=== PATIENT | female | born 1955 | race Caucasian/White ===

== ENCOUNTER 2017-01-31 06:58 | Emergency (ER) | payer SELFPAY ==
[2017-01-31] MEDS ORDERED: Acetaminophen 325 MG Tab PO ONE (07:32)
[2017-01-31] MEDS ORDERED: Cephalexin 500 MG Cap PO ONE (07:32)
--- NOTE | 2017-01-31 07:40 | EDM.PDOC ---
ED HPI GENERAL MEDICAL PROBLEM - General Chief Complaint: Upper Extremity Injury/Pain Stated Complaint: LT MIDDLE FINGER RED AND SWOLLEN Time Seen by Provider: 01/31/17 07:24 Source of Information: Reports: Patient, RN Notes Reviewed - History of Present Illness INITIAL COMMENTS - FREE TEXT/NARRATIVE: 61-year-old female comes in with sore inflamed distal left middle finger. She states that started hurting last evening, continued through the night and worse this morning. She is not aware of any particular injury. The pain is worse at the base of the nailbed and there is redness and swelling present at that area. There has been no drainage. Left 3-Middle finger Pain Score (Numeric/FACES): 10 - Related Data Allergies Allergy/AdvReac Type Severity Reaction Status Date / Time No Known Allergies Allergy Verified 01/31/17 07:08 Home Meds: Home Meds Cephalexin 500 mg PO Q6HR #40 capsule 01/31/17 [Rx] Ibuprofen 200 mg PO Q6H PRN 01/31/17 [History] Past Medical History HEENT History: Reports: Cataract, Impaired Vision Other HEENT History: wears eyeglasses. Cardiovascular History: Reports: Hypertension Respiratory History: Reports: Pneumonia, Recurrent, Other (See Below) Other Respiratory History: has had pneumonia in infancy. 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 Neurological History: Reports: Migraines Endocrine/Metabolic History: Reports: Diabetes, Type II Hematologic History: Reports: Anemia Other Hematologic History: during . - Infectious Disease History Infectious Disease History: Reports: Chicken Pox, Measles, Mumps Social & Family History - Tobacco Use Smoking Status *Q: Never Smoker Second Hand Smoke Exposure: Yes - Caffeine Use Caffeine Use: Reports: Coffee - Alcohol Use Days Per Week of Alcohol Use: 1 Number of Drinks Per Day: 1 Total Drinks Per Week: 1 - Recreational Drug Use Recreational Drug Use: No Review of Systems - Review of Systems Review Of Systems: See Below Constitutional: Denies: Chills, Fever Mouth/Throat: Reports: No Symptoms Respiratory: Reports: No Symptoms Cardiovascular: Reports: No Symptoms GI/Abdominal: Denies: Nausea, Vomiting Musculoskeletal: Reports: Other (Pain and swelling base of nail bed left middle finger) ED EXAM, GENERAL - Physical Exam Exam: See Below General Appearance: Alert, Mild Distress Respiratory/Chest: No Respiratory Distress Extremities: Redness (There is erythema base of nail bed left distal middle finger, moderate swelling, localized tenderness, no drainage, finger otherwise not inflamed) Neurological: No Motor/Sensory Deficits Skin Exam: Warm, Dry Course - Vital Signs Last Recorded V/S: Last Vital Signs Temp 97.4 F 01/31/17 07:05 Pulse 81 01/31/17 08:10 Resp 18 01/31/17 08:10 BP 169/100 H 01/31/17 08:10 Pulse Ox 99 01/31/17 08:10 - Orders/Labs/Meds Meds: Medications Discontinued Medications Generic Name Dose Route Start Last Admin Trade Name José Miguel PRN Reason Stop Dose Admin Acetaminophen 975 mg 01/31/17 07:32 01/31/17 07:38 Tylenol PO 01/31/17 07:33 975 mg NOW ONE Administration Cephalexin 500 mg 01/31/17 07:32 01/31/17 07:38 Keflex PO 01/31/17 07:33 500 mg ONETIME ONE Administration - Re-Assessments/Exams Free Text/Narrative Re-Assessment/Exam: 01/31/17 07:48 Blood pressure very high on exam to 26/112, repeat blood pressure at this time 190/106. Patient does not take medication for hypertension. She is uncomfortable so that is not helping. 01/31/17 07:56. I visited with her a few minutes ago about doing appropriate labs, starting on medication for hypertension. She is very tired, just wants to go home and get some rest. Will follow up with one of our clinic providers next week. Discharge instructions as documented. Departure - Departure Time of Disposition: 07:34 Disposition: Home, Self-Care 01 Condition: Fair Clinical Impression: Acute paronychia of finger Qualifiers: Laterality: left Qualified Code(s): L03.012 - Cellulitis of left finger Hypertension Qualifiers: Hypertension type: essential hypertension Qualified Code(s): I10 - Essential ( primary) hypertension - Discharge Information Prescriptions: Cephalexin 500 mg PO Q6HR #40 capsule Instructions: Hypertension, [id number], Fingertip Infection, Paronychia, Easy -to-Read Referrals: PCP,None [Primary Care Provider] - Forms: ED Department Discharge Additional Instructions: Soak finger in warm soapy water every 2-3 hours while awake, especially today and tomorrow, cephalexin antibiotic 500 mg 4 times daily for 10 days or until gone, if that does form a visible pus pocket you may Reggie or drain that with a sharp razor blade or follow-up clinic to have that done for you, follow-up clinic if not resolving as expected over the next 3-5 days, return to ED if symptoms worsening in any way. Your blood pressure readings are high this morning. Your finger discomfort and not sleeping well last night is not helping that. You do need to follow-up clinic next week for a full evaluation, appropriate lab work and to get started on medicine for hypertension if appropriate and needed. Call [phone] this morning to get an appointment to see one of our clinic providers next week.
== END 2017-01-31 08:10 | disposition home or self-care (01) ==
LOC: JD.ED 06:58
DX: L03.012 Cellulitis of left finger (principal); I10 Essential (primary) hypertension; E11.9 Type 2 diabetes mellitus without complications; Z77.22 Contact with and (suspected) exposure to environmental tobacco smoke (acute) (chronic)
CPT/HCPCS: 99283; A9270

== ENCOUNTER 2017-02-10 09:34 | Emergency (ER) | payer SELFPAY ==
[2017-02-10] MEDS ORDERED: Sodium Chloride 0.9% 10 ML Syringe FLUSH PRN (09:46)
--- NOTE | 2017-02-10 10:10 | EDM.PDOC ---
ED HPI GENERAL MEDICAL PROBLEM - General Chief Complaint: Neuro Symptoms/Deficits Stated Complaint: WEAKNESS IN R HAND/SLURRED SPEECH Time Seen by Provider: 02/10/17 09:37 Source of Information: Reports: Patient, RN Notes Reviewed - History of Present Illness INITIAL COMMENTS - FREE TEXT/NARRATIVE: 61-year-old lady is been brought in by daughter with concern about speech difficulty, right hand and arm weakness and clumsiness that has resolved. She had sudden onset of these symptoms at work about 30-40 minutes ago. She states symptoms lasted for about 5 minutes or less. She has had frontal headache today. However she did not have prior speech difficulty or hand or arm weakness and was at work able to do her normal work duties without difficulty until sudden onset of these symptoms. She does not remember if there was any numbness or tingling of her hand or face. She's had no chest pain or difficulty breathing. No nausea or vomiting. She has had weak and dizzy spells in the past. She denies known history for hypertension. Her daughter states that she is diabetic but is not on medication for that. This was called as a stroke alert. I did see patient at time of patient arrival to her room. Headache Pain Score (Numeric/FACES): 8 - Related Data Allergies Allergy/AdvReac Type Severity Reaction Status Date / Time No Known Allergies Allergy Verified 02/10/17 09:39 Home Meds: Home Meds Cephalexin 500 mg PO Q6HR #40 capsule 01/31/17 [Rx] Ibuprofen 200 mg PO Q6H PRN 01/31/17 [History] Past Medical History HEENT History: Reports: Cataract, Impaired Vision Other HEENT History: wears eyeglasses. Cardiovascular History: Reports: Hypertension Respiratory History: Reports: Pneumonia, Recurrent, Other (See Below) Other Respiratory History: has had pneumonia in infancy. 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 Neurological History: Reports: Migraines Psychiatric History: Reports: Depression Endocrine/Metabolic History: Reports: Diabetes, Type II Hematologic History: Reports: Anemia Other Hematologic History: during . - Infectious Disease History Infectious Disease History: Reports: Chicken Pox, Measles, Mumps Social & Family History - Tobacco Use Smoking Status *Q: Never Smoker Second Hand Smoke Exposure: No - Caffeine Use Caffeine Use: Reports: Coffee - Alcohol Use Days Per Week of Alcohol Use: 1 Number of Drinks Per Day: 1 Total Drinks Per Week: 1 - Recreational Drug Use Recreational Drug Use: No ED ROS GENERAL - Review of Systems Review Of Systems: See Below Constitutional: Denies: Fever, Chills, Diaphoresis HEENT: Denies: Throat Pain, Vertigo, Vision Change Respiratory: Denies: Shortness of Breath, Wheezing, Pleuritic Chest Pain Cardiovascular: Denies: Chest Pain GI/Abdominal: Denies: Abdominal Pain, Vomiting Musculoskeletal: Denies: Neck Pain, Back Pain Skin: Denies: Rash Neurological: Reports: Headache, Trouble Speaking (At work about 30-40 minutes ago, resolved), Weakness (There was weakness and clumsiness of her hand about 30 -40 minutes ago lasting about 5 minutes, resolved). Denies: Numbness (Frontal) , Tingling ED EXAM, NEURO - Physical Exam Exam: See Below General Appearance: Alert, Anxious Eye Exam: Bilateral Eye: Normal Inspection, PERRL Ears: Normal External Exam Nose: Normal Inspection Throat/Mouth: Normal Inspection Head Exam: Atraumatic. No: Facial Swelling Neck: Supple, Full Range of Motion Respiratory/Chest: No Respiratory Distress, Lungs Clear, Normal Breath Sounds Cardiovascular: Regular Rate, Rhythm GI/Abdominal: Non-Tender Neurological: Alert, No Motor/Sensory Deficits, Oriented x 3, Other (Finger to nose testing normal bilateral) Psychiatric: Normal Affect Skin Exam: Warm, Dry, Normal Color EKG INTERPRETATION EKG Date: 02/10/17 Rhythm: NSR [place]: Normal P-Wave: Present QRS: Other (There are Q waves present inferior leads) ST-T: Normal Course - Vital Signs Last Recorded V/S: Last Vital Signs Temp 96.4 F 02/10/17 09:35 Pulse 92 02/10/17 09:35 Resp 16 02/10/17 09:35 BP 200/107 H 02/10/17 09:35 Pulse Ox 100 02/10/17 09:35 - Orders/Labs/Meds Orders: Active Orders 24 hr Category Date Time Status EKG 12 Lead [EKG Documentation Completion] [RC] STAT Care 02/10/17 09:57 Active POC Glucose [Blood Glucose Check, Bedside] [] ONETIME Care 02/10/17 12:35 Active Peripheral IV Care [RC] . DIRECTED Care 02/10/17 09:47 Active Sodium Chloride 0.9% [Saline Flush] Med 02/10/17 09:46 Active 10 ml FLUSH ASDIRECTED PRN Peripheral IV Insertion Adult [OM.PC] Stat Oth 02/10/17 09:46 Ordered Medication Orders Sodium Chloride (Saline Flush) 10 ml FLUSH ASDIRECTED PRN PRN Reason: Keep Vein Open Last Admin: 02/10/17 10:10 Dose: 10 ml Labs: Laboratory Tests 02/10/17 02/10/17 02/10/17 Range/Units 09:45 09:45 09:45 WBC 6.98 (3.98-10.04) K/mm3 RBC 4.88 (3.98-5.22) M/mm3 Hgb 14.5 (11.2-15.7) gm/L Hct 44.2 (34.1-44.9) % MCV 90.6 (79.4-94.8) fl MCH 29.7 (25.6-32.2) pg MCHC 32.8 (32.2-35.5) g/dl RDW Std Deviation 45.1 (36.4-46.3) fL Plt Count 208 (182-369) K/mm3 MPV 10.2 (9.4-12.3) fl Neut % (Auto) 62.9 (34.0-71.1) % Lymph % (Auto) 25.9 (19.3-51.7) % [place] % (Auto) 8.6 (4.7-12.5) % Eos % (Auto) 1.3 (0.7-5.8) Baso % (Auto) 0.4 (0.1-1.2) % Neut # (Auto) 4.39 (1.56-6.13) K/mm3 Lymph # (Auto) 1.81 (1.18-3.74) K/mm3 [place] # (Auto) 0.60 H (0.24-0.36) K/mm3 Eos # (Auto) 0.09 (0.04-0.36) K/mm3 Baso # (Auto) 0.03 (0.01-0.08) K/mm3 PT 9.8 (8.0-13.0) SECONDS INR 0.90 Sodium 137 (136-145) mEq/L Potassium 4.2 (3.5-5.1) mEq/L Chloride 106 (98-107) mEq/L Carbon Dioxide 19 L (21-32) mEq/L Anion Gap 16.2 H (5-15) BUN 21 H (7-18) mg/dL Creatinine 1.9 H (0.55-1.02) mg/dL Est Cr Clr Drug Dosing 22.87 mL/min Estimated GFR (MDRD) 27 (>60) mL/min BUN/Creatinine Ratio 11.1 L (14-18) Glucose 499 H (80-115) mg/dL Calcium 9.1 (8.5-10.1) mg/dL Total Bilirubin 0.5 (0.2-1.0) mg/dL AST 16 (15-37) U/L ALT 25 (14-59) U/L Alkaline Phosphatase 88 (46-116) U/L Total Protein 7.8 (6.4-8.2) g/dl Albumin 3.5 (3.4-5.0) g/dl Globulin 4.3 gm/dL Albumin/Globulin Ratio 0.8 L (1-2) Meds: Medications Generic Name Dose Route Start Last Admin Trade Name Freq PRN Reason Stop Dose Admin Sodium Chloride 10 ml 02/10/17 09:46 02/10/17 10:10 Saline Flush FLUSH 10 ml ASDIRECTED PRN Administration Keep Vein Open Discontinued Medications Generic Name Dose Route Start Last Admin Trade Name Freq PRN Reason Stop Dose Admin Aspirin 324 mg 02/10/17 13:05 Aspirin PO 02/10/17 13:06 ONETIME ONE Sodium Chloride 500 mls @ 999 mls/hr 02/10/17 10:50 02/10/17 11:10 Normal Saline IV 02/10/17 11:20 999 mls/hr .BOLUS ONE Administration Insulin Human Regular 10 unit 02/10/17 11:10 02/10/17 11:14 Humulin R SUBCUT 02/10/17 11:11 10 units ONETIME ONE Administration Protocol Insulin Human Regular 4 unit 02/10/17 13:15 Humulin R IV 02/10/17 13:16 ONETIME ONE - Re-Assessments/Exams Free Text/Narrative Re-Assessment/Exam: 02/10/17 10:45. CT of head was normal. Her coming back showing a glucose of 499 , moderate dehydration with CO2 of 19 and elevated anion gap. She and her daughter state that she "is diabetic" but not on medication for that, etiology for nontreatment unclear. Have ordered a 500 mL saline bolus and 10 units insulin subcutaneous sq. creatinine is elevated at 1.9 so unable to do CTA or MRA at this time. 11:45. checking on bed status for admission. 02/10/17 12:40. We are on diversion for inpatient admissions. Repeat blood sugar was in the 400 range. Continuing with IV fluid. His shunt was not happy with the idea of going to [place] for hospital admission, her preference would be to go home but she is not medically stable for that. After long persuasion she is willing for the transfer to [facility]. 13:00. Dr. Brian Gleason, Hospitalist accepting Phys. repeat glucose a short time ago greater than 400, will give 4 units IV at this time. Departure - Departure Time of Disposition: 11:53 Disposition: DC/Tfer to Acute Hospital 02 Condition: Serious Clinical Impression: Dehydration, Hyperglycemia, Renal insufficiency TIA (transient ischemic attack) Qualifiers: Transient cerebral ischemia type: unspecified Qualified Code(s): G45.9 - Transient cerebral ischemic attack, unspecified Hypertension Qualifiers: Hypertension type: essential hypertension Qualified Code(s): I10 - Essential ( primary) hypertension - Discharge Information Referrals: PCP,None [Primary Care Provider] - Forms: ED Department Discharge - My Orders Last 24 Hours: My Active Orders 02/10/17 09:46 Sodium Chloride 0.9% [Saline Flush] 10 ml FLUSH ASDIRECTED PRN Peripheral IV Insertion Adult [OM.PC] Stat 02/10/17 09:47 Peripheral IV Care [RC] . DIRECTED 02/10/17 09:57 EKG 12 Lead [EKG Documentation Completion] [RC] STAT 02/10/17 12:35 POC Glucose [Blood Glucose Check, Bedside] [] ONETIME - Assessment/Plan Last 24 Hours: My Active Orders 02/10/17 09:46 Sodium Chloride 0.9% [Saline Flush] 10 ml FLUSH ASDIRECTED PRN Peripheral IV Insertion Adult [OM.PC] Stat 02/10/17 09:47 Peripheral IV Care [RC] . DIRECTED 02/10/17 09:57 EKG 12 Lead [EKG Documentation Completion] [RC] STAT 02/10/17 12:35 POC Glucose [Blood Glucose Check, Bedside] [] ONETIME
--- NOTE | 2017-02-10 10:18 | CT ---
Head CT Technique: Multiple axial sections through the brain were obtained. Intravenous contrast was not utilized. Comparison: No previous intracranial imaging. Findings: Sulci over the convexities are mildly prominent which is asymmetrically more prominent within the frontal lobes. No abnormal parenchymal densities are seen. No evidence of intracranial hemorrhage. No midline shift or mass effect is appreciated. Bone window settings were reviewed which shows the visualized sinuses to appear clear. No acute calvarial abnormality is identified. Impression: 1. Mild atrophy which is asymmetrically more prominent within both frontal lobes. 2. Nothing acute is appreciated on noncontrast head CT study. Diagnostic code #2
[2017-02-10] MEDS ORDERED: Sodium Chloride 0.9% 500 ML IV ONE (10:50)
[2017-02-10] MEDS ORDERED: Insulin Regular, Human 100 Units/ML 3 ML Vial SUBCUT ONE (11:10)
[2017-02-10] MEDS ORDERED: Aspirin 81 MG Tab.Chew PO ONE (13:05)
[2017-02-10] MEDS ORDERED: Insulin Regular, Human 100 Units/ML 3 ML Vial IV ONE (13:15)
[2017-02-10] MEDS ORDERED: Insulin Regular, Human 100 Units/ML 3 ML Vial SUBCUT SCH (16:00)
== END 2017-02-10 14:04 ==
LOC: JD.ED 09:34
DX: G45.9 Transient cerebral ischemic attack, unspecified (principal); E86.0 Dehydration; E11.65 Type 2 diabetes mellitus with hyperglycemia; N28.9 Disorder of kidney and ureter, unspecified; I10 Essential (primary) hypertension
CPT/HCPCS: 36415; 70450; 80053; 85025; 85610; 93005; 96361; 96372; 96374; 99285; A9270; J1817; J7040; J7050; 93010

== ENCOUNTER 2017-04-20 08:56 | Emergency (ER) | payer MEDICAID, MEDICARE, OTHER ==
[2017-04-20] MEDS ORDERED: Insulin Detemir 100 Units/ML 3 ML Pen SUBCUT ONE (10:08)
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
[2017-04-20] MEDS ORDERED: Insulin Aspart 100 Units/ML 3 ML Pen SUBCUT SCH (11:00)
== END 2017-04-20 11:00 | disposition home or self-care (01) ==
LOC: JD.ED 08:56
DX: E11.65 Type 2 diabetes mellitus with hyperglycemia (principal); I10 Essential (primary) hypertension; Z87.01 Personal history of pneumonia (recurrent); Z87.440 Personal history of urinary (tract) infections; Z79.4 Long term (current) use of insulin
CPT/HCPCS: 82962; 96372; 99284; J1815; 99283

== ENCOUNTER 2020-12-11 14:04 | Emergency (ER) | payer MEDICAID, MEDICARE ==
[2020-12-11] MEDS ORDERED: Sodium Chloride 0.9% 10 ML Syringe FLUSH PRN (15:06)
--- NOTE | 2020-12-11 15:44 | EDM.PDOC ---
ED HPI GENERAL MEDICAL PROBLEM - General Chief Complaint: Respiratory Problem Stated Complaint: COUGH CHEST PAIN WEAK COVID+ Time Seen by Provider: 12/11/20 15:04 Source of Information: Reports: Patient, RN Notes Reviewed History Limitations: Reports: No Limitations - History of Present Illness INITIAL COMMENTS - FREE TEXT/NARRATIVE: Patient is a 65-year-old female who presents to the ER for the evaluation of her COVID-19. Patient states she has been sick about 10 days. She has had no appetite, she is still trying to drink fluids however she just does not want to eat much of anything. She is not having any sort of nausea vomiting or diarrhea. States she did have a few episodes of diarrhea early in the disease course but this has gotten better. Not complaining of any worsening cough or shortness of breath, or any sort of fevers or chills. Patient is a diabetic, on insulin. Patient was found to be slightly hypoxic at the time of triage, was placed on 2 L of oxygen, and O2 sats have been 97% on the 2 L of oxygen. Again patient is in no visible respiratory distress, we will go ahead to try to trial her off oxygen to see if this can be achieved. Primary care provider is Faith Purdy. - Related Data Allergies Allergy/AdvReac Type Severity Reaction Status Date / Time No Known Allergies Allergy Verified 12/11/20 15:05 Home Meds: Home Meds Insulin Aspart [NovoLOG] 5 units SQ TIDMEALS 04/20/17 [History] Insulin Detemir [Levemir Flextouch] 12 units SQ DAILY 04/20/17 [History] Past Medical History HEENT History: Reports: Cataract, Impaired Vision Other HEENT History: wears eyeglasses. Cardiovascular History: Reports: Afib, Hypertension Respiratory History: Reports: Pneumonia, Recurrent, Other (See Below) Other Respiratory History: has had pneumonia in infancy. 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 Neurological History: Reports: Migraines Psychiatric History: Reports: Depression Endocrine/Metabolic History: Reports: Diabetes, Type II, Obesity/BMI 30+ Hematologic History: Reports: Anemia Other Hematologic History: during . - Infectious Disease History Infectious Disease History: Reports: Chicken Pox, Measles, Mumps, Novel Coronavirus (12/01/2020) Social & Family History - Tobacco Use Tobacco Use Status *Q: Never Tobacco User - Caffeine Use Caffeine Use: Reports: None, Coffee Caffeine Use Comment: 2 X per day - Recreational Drug Use Recreational Drug Use: No ED ROS GENERAL - Review of Systems Review Of Systems: Comprehensive ROS is negative, except as noted in HPI. ED EXAM, GENERAL - Physical Exam Exam: See Below Exam Limited By: No Limitations General Appearance: Alert, WD/WN, No Apparent Distress Respiratory/Chest: No Respiratory Distress, Lungs Clear, Normal Breath Sounds, No Accessory Muscle Use, Chest Non-Tender Cardiovascular: Normal Peripheral Pulses, Regular Rate, Rhythm, No Edema Extremities: Normal Inspection, Normal Capillary Refill Neurological: Alert, Oriented, Normal Cognition, No Motor/Sensory Deficits Psychiatric: Normal Affect, Normal Mood Skin Exam: Warm, Dry, Intact, Normal Color, No Rash #1 Interpretation EKG Date: 12/11/20 Time: 15:11 Rhythm: NSR Rate (Beats/Min): 86 [place]: Normal P-Wave: Present QRS: Normal ST-T: Normal QT: Normal EKG Interpretation Comments: No obvious ischemia or acute ST changes noted, reviewed by myself and Dr. Montgomery. Course - Vital Signs Last Recorded V/S: Last Vital Signs Temp 97.3 F 12/11/20 15:06 Pulse 92 12/11/20 15:06 Resp 20 12/11/20 15:06 BP 123/73 12/11/20 15:06 Pulse Ox 95 12/11/20 15:06 - Orders/Labs/Meds Orders: Active Orders 24 hr Category Date Time Status Oxygen Therapy, ED [RC] ASDIRECTED Care 12/11/20 15:37 Active Peripheral IV Care [RC] . DIRECTED Care 12/11/20 15:06 Active Sodium Chloride 0.9% [Normal Saline] 1,000 ml Med 12/11/20 16:27 Active IV ONETIME Sodium Chloride 0.9% [Saline Flush] Med 12/11/20 15:06 Active 10 ml FLUSH ASDIRECTED PRN Peripheral IV Insertion Adult [OM.PC] Routine Oth 12/11/20 15:06 Ordered Medication Orders Sodium Chloride (Normal Saline) 1,000 mls @ 500 mls/hr IV ONETIME ONE Stop: 12/11/20 18:26 Last Admin: 12/11/20 16:59 Dose: 500 mls/hr Documented by: LEIGHTON Sodium Chloride (Sodium Chloride 0.9% 10 Ml Syringe) 10 ml FLUSH ASDIRECTED PRN PRN Reason: Keep Vein Open Last Admin: 12/11/20 15:58 Dose: 10 ml Documented by: LEIGHTON Labs: Laboratory Tests 12/11/20 12/11/20 12/11/20 Range/Units 15:45 15:45 15:45 WBC 5.60 (3.98-10.04) K/mm3 RBC 4.54 (3.98-5.22) M/mm3 Hgb 12.9 (11.2-15.7) gm/dl Hct 41.4 (34.1-44.9) % MCV 91.2 (79.4-94.8) fl MCH 28.4 (25.6-32.2) pg MCHC 31.2 L (32.2-35.5) g/dl RDW Std Deviation 47.2 H (36.4-46.3) fL Plt Count 152 L (182-369) K/mm3 MPV 10.9 (9.4-12.3) fl Neut % (Auto) 67.7 (34.0-71.1) % Lymph % (Auto) 17.1 L (19.3-51.7) % Island % (Auto) 14.8 H (4.7-12.5) % Eos % (Auto) 0 L (0.7-5.8) Baso % (Auto) 0.2 (0.1-1.2) % Neut # (Auto) 3.79 (1.56-6.13) K/mm3 Lymph # (Auto) 0.96 L (1.18-3.74) K/mm3 Island # (Auto) 0.83 H (0.24-0.36) K/mm3 Eos # (Auto) 0.00 L (0.04-0.36) K/mm3 Baso # (Auto) 0.01 (0.01-0.08) K/mm3 Manual Slide Review Sodium 138 (136-145) mEq/L Potassium 5.9 H (3.5-5.1) mEq/L Chloride 107 (98-107) mEq/L Carbon Dioxide 22 (21-32) mEq/L Anion Gap 14.9 (5-15) BUN 40 H (7-18) mg/dL Creatinine 2.5 H (0.55-1.02) mg/dL Est Cr Clr Drug Dosing 16.48 mL/min Estimated GFR (MDRD) 19 (>60) mL/min BUN/Creatinine Ratio 16.0 (14-18) Glucose 321 H (70-99) mg/dL Calcium 8.0 L (8.5-10.1) mg/dL Magnesium 2.4 (1.8-2.4) mg/dL Total Bilirubin 0.5 (0.2-1.0) mg/dL AST 39 H (15-37) U/L ALT 33 (14-59) U/L Alkaline Phosphatase 74 (46-116) U/L Troponin I < 0.017 (0.00-0.056) ng/mL C-Reactive Protein 6.3 H* (<1.0) mg/dL Total Protein 6.8 (6.4-8.2) g/dl Albumin 2.7 L (3.4-5.0) g/dl Globulin 4.1 gm/dL Albumin/Globulin Ratio 0.7 L (1-2) Meds: Medications Generic Name Dose Route Start Last Admin Trade Name Freq PRN Reason Stop Dose Admin Sodium Chloride 1,000 mls @ 500 mls/hr 12/11/20 16:27 12/11/20 16:59 Normal Saline IV 12/11/20 18:26 500 mls/hr ONETIME ONE Administration Sodium Chloride 10 ml 12/11/20 15:06 12/11/20 15:58 Sodium Chloride 0.9% 10 Ml Syringe FLUSH 10 ml ASDIRECTED PRN Administration Keep Vein Open - Re-Assessments/Exams Free Text/Narrative Re-Assessment/Exam: 12/11/20 15:44 Patient presents to the ER for the evaluation of her COVID-19 symptoms. The patient was placed on 2 L of oxygen at the time of triage, patient thinks that her O2 sats were in the high 80s but she is not really sure, the patient's O2 saturations were documented to have been 95% at time of triage. We will go ahead and trial her off oxygen to see if this is indeed low and see if the patient actually needs oxygen. If she is not hypoxic, she would be a candidate possibly for monoclonal antibodies however it is at day 10, so it might not provide her too much benefit. But we will make sure that she is indeed not hypoxic before going down that route. 12/11/20 16:28 Patient CBC is unremarkable. Metabolic panel has some abnormalities. Potassium is mildly elevated at 5.9, creatinine is elevated at 2.5, GFR low at 19. Blood glucose is elevated at 321, troponin is undetectably low at this time. 12/11/20 16:45 Patient's laboratory evaluation was discussed at bedside with the patient. Patient is refusing any sort of hospitalization at this time. She will however take some IV fluids to hopefully rehydrate her a little bit. I will likely set her up with outpatient oxygen as the patient's O2 sats have been steadily around 87% on room air, and they did improve to 94-95% with 2 L. 12/11/20 16:59 I did review patient's old labs, and her creatinine has been steadily around 1.8 or 1.9, so the slight elevation at 2.5 could very well be due to her dehydration due to not eating or drinking much because of COVID-19. Patient states she feels pretty good otherwise. She again is refusing any sort of hospitalization at this time. Departure - Departure Time of Disposition: 17:16 Disposition: Home, Self-Care 01 Condition: Fair Clinical Impression: Pneumonia due to 2019 novel coronavirus, Hypoxia, Dehydration - Discharge Information *PRESCRIPTION DRUG MONITORING PROGRAM REVIEWED*: No *COPY OF PRESCRIPTION DRUG MONITORING REPORT IN PATIENT JOSEPH: No Instructions: Prone Position Therapy, 10 Things You Can Do to Manage Your COVID-19 Symptoms at Home - [facility] (09/15/2020) Referrals: Jasmine Purdy CRAFT SUPERINTENDENT [Primary Care Provider] - Forms: ED Department Discharge Additional Instructions: You were seen in the ER today for ongoing and/or worsening respiratory symptoms. Your chest x-ray showed signs of a viral pneumonia consistent with COVID-19 at this time. Your oxygen levels were low while being in the ER, and were found to be 87% on room air. You have been placed on oxygen at 2 L via nasal cannula and this has improved your oxygen to about 95 to 96%. You have been given an order for outpatient oxygen on your behalf while you are sick with COVID-19. [facility] will supply this for you. They should teach you how to deal with the machine, if you are needing to increase your oxygen level up to 4 L or over 4 L, then you will need to come back to the ER for ongoing management of your COVID-19 disease. You were also given some IV fluids in the ER, as you are slightly dehydrated because you have not really been eating or drinking well because of your COVID- 19. Please try to increase your oral fluid intake, and eat multiple small meals throughout the day, to keep yourself healthy. You need to keep yourself nourished in order to fight off this disease. You can try a liquid diet like gatorade/powerade as well to get your electrolytes. You may take 500 mg Tylenol every hours 6 hours for pain/fever relief. Do not exceed 4000 mg Tylenol in a 24-hour time span. However, running a fever is your body's natural response to illness, and it allows the body to develop antibodies to disease, we are recommending trying to limit the use of Tylenol as much as possible to allow your body's natural immune response. Recommend you obtain a pulse oximeter and monitor your oxygen levels at home, you should place the monitor on your finger, and sit in a calm, quiet position for a few minutes and then record the number that is on the screen. If this consistently below 90% on room air without movement, this would be cause for concern to come back to the hospital for further management of your COVID-19 disease. Please follow all guidance set forth from [facility], regarding isolation purposes for your disease process. General isolation times are 10 days from when you started being symptomatic. Sepsis Event Note (ED) - Focused Exam Vital Signs: Vital Signs Temp Pulse Resp BP Pulse Ox 12/11/20 15:06 97.3 F 92 20 123/73 95 - My Orders Last 24 Hours: My Active Orders 12/11/20 15:06 Peripheral IV Care [RC] . DIRECTED Sodium Chloride 0.9% [Saline Flush] 10 ml FLUSH ASDIRECTED PRN Peripheral IV Insertion Adult [OM.PC] Routine 12/11/20 15:37 Oxygen Therapy, ED [RC] ASDIRECTED 12/11/20 16:27 Sodium Chloride 0.9% [Normal Saline] 1,000 ml IV ONETIME - Assessment/Plan Last 24 Hours: My Active Orders 12/11/20 15:06 Peripheral IV Care [RC] . DIRECTED Sodium Chloride 0.9% [Saline Flush] 10 ml FLUSH ASDIRECTED PRN Peripheral IV Insertion Adult [OM.PC] Routine 12/11/20 15:37 Oxygen Therapy, ED [RC] ASDIRECTED 12/11/20 16:27 Sodium Chloride 0.9% [Normal Saline] 1,000 ml IV ONETIME
--- NOTE | 2020-12-11 15:51 | CR ---
Chest: Frontal view of the chest was obtained. Comparison: Prior chest x-ray of 09/08/13. Patchy increased density is seen along the periphery of the left lower and mid lung as well as within the right upper and right lower lung. Heart size and mediastinum are normal. Old healed right-sided rib fractures are noted. Impression: 1. Moderately severe bilateral COVID pneumonia appears to be present. 2. No other acute abnormality is appreciated. Diagnostic code #3
[2020-12-11] MEDS ORDERED: Sodium Chloride 0.9% 1,000 ML IV ONE (16:27)
== END 2020-12-11 19:01 | disposition home or self-care (01) ==
LOC: JD.ED 14:04
DX: U07.1 COVID-19 (principal); J12.82 Pneumonia due to coronavirus disease 2019; E86.0 Dehydration; R09.02 Hypoxemia; I48.91 Unspecified atrial fibrillation; I10 Essential (primary) hypertension; E11.9 Type 2 diabetes mellitus without complications; E66.9 Obesity, unspecified; Z68.39 Body mass index [BMI] 39.0-39.9, adult; Z79.4 Long term (current) use of insulin
CPT/HCPCS: 36415; 71045; 80053; 83735; 84484; 85025; 86140; 93005; 99284; J7030

== ENCOUNTER 2020-12-21 21:20 | Inpatient (IN) | payer MEDICARE, MEDICAID ==
--- NOTE | 2020-12-21 22:05 | EDM.PDOC ---
ED HPI GENERAL MEDICAL PROBLEM - General Chief Complaint: Respiratory Problem Stated Complaint: [facility] Time Seen by Provider: 12/21/20 21:38 Source of Information: Reports: Patient, Old Records (ED visit 12/11/2020) History Limitations: Reports: No Limitations - History of Present Illness INITIAL COMMENTS - FREE TEXT/NARRATIVE: Ms. Reed is a very pleasant 65-year-old woman who is now brought to the ED due to hypoxemia. Medical records indicate that the patient was seen in this ED on 12/11/2020, stating that she had tested positive for the SARS-CoV-2 virus on 12/01/2020. She was seen in the ED due to a decreased appetite. She was found to be hypoxemic, with an SPO2 of 87% on room air, 97% on 2 L of supplemental oxygen per nasal cannula. A CRP was found to be elevated at 6.3. Her chest x-ray demonstrated moderately severe COVID pneumonia, with bilateral infiltrates. No medications were given, and she declined admission to the hospital. She was discharged home with supplemental oxygen. Since discharge, the patient states that her oxygen saturation has been declining, according to home finger pulse oximeter that she has. She states that she has continued to be on 2 L of oxygen per nasal cannula up until 2 days ago, when her daughter increased it to 3 L. The patient states that 2 days ago and yesterday she had some trouble breathing, although she does not feel dyspneic at this time. She states that she has had a slight nonproductive cough. She states that she has had 2 days of some diarrhea. She expressly denies any other symptoms, such as a fever, chills, nausea, vomiting, constipation, urinary symptoms, painful breathing, or generalized body aches. She states that she has not taken any mddy-bit-kumytms or home remedies. The patient states that she has diabetes, and checks her blood glucose 4 times a day, with the usual range being between 140 and over 200. She states that a couple of days ago, her blood glucose was 246. The triage note indicates that EMS found the patient's SpO2 to be 77% on 3 L of oxygen per nasal cannula. EMS placed a nonrebreather at 15 L, raising her SpO2 to 92 to 95%. Here in the ED, the patient's initial BP is found to be mildly depressed at 108/58, with slight tachypnea of 24 rpm. She is afebrile, saturating 92% on a nonrebreather. She appears to be comfortable, in no acute distress. She denies having any pain or dyspnea. The patient denies having a recent sore throat, ear pain, nasal or sinus congestion, chest pain, palpitations, abdominal pain, urinary symptoms, recent weight gain or weight loss, recent bloody bowel movements or black bowel movements, recent joint aches, headaches, or rashes. The patient's PCP is Jasmine Purdy NP. She did not receive a COVID vaccination. - Related Data Allergies Allergy/AdvReac Type Severity Reaction Status Date / Time No Known Allergies Allergy Verified 12/21/20 21:27 Home Meds: Home Meds Dulaglutide [Trulicity] 1 dose SUBCUT ASDIRECTED 12/22/20 [History] Insulin Aspart [Novolog Flexpen] 1 dose SUBCUT ASDIRECTED 12/22/20 [History] Levothyroxine 112 mcg PO ACBREAKFAST 12/22/20 [History] Pantoprazole [ProTONIX] 1 tab PO DAILY 12/22/20 [History] atorvaSTATin [Lipitor] 80 mg PO BEDTIME 12/22/20 [History] lisinopriL [Lisinopril] 1 tab PO DAILY 12/22/20 [History] Past Medical History HEENT History: Reports: Impaired Vision (wears glasses) Cardiovascular History: Reports: Afib (paroxysmal), Hypertension Genitourinary History: Reports: Chronic Renal Insuffiency Musculoskeletal History: Reports: Fracture (ribs) Psychiatric History: Reports: Depression (untreated) Endocrine/Metabolic History: Reports: Diabetes, Type II, Obesity/BMI 30+ - Infectious Disease History Infectious Disease History: Reports: Chicken Pox, Measles, Mumps, Novel Coronavirus (dx'd 12/01/2020) - Past Surgical History HEENT Surgical History: Reports: Cataract Surgery (bilateral) Social & Family History - Tobacco Use Tobacco Use Status *Q: Never Tobacco User - Caffeine Use Caffeine Use: Reports: None, Coffee Caffeine Use Comment: 2 X per day - Alcohol Use Alcohol Use History: Yes Alcohol Use Frequency: Rarely - Recreational Drug Use Recreational Drug Use: No - Living Situation & Occupation Living situation: Reports: Single, Alone Occupation: Retired ED ROS GENERAL - Review of Systems Review Of Systems: Comprehensive ROS is negative, except as noted in HPI. ED EXAM, GENERAL - Physical Exam Exam: See Below Exam Limited By: No Limitations General Appearance: Alert, WD/WN, No Apparent Distress Eye Exam: Bilateral Eye: EOMI, Normal Inspection Ears: Normal External Exam, Hearing Grossly Normal Nose: Normal Inspection Throat/Mouth: Normal Inspection, Normal Lips, Normal Voice, No Airway Compromise Head: Atraumatic, Normocephalic Neck: Normal Inspection, Full Range of Motion Respiratory/Chest: No Respiratory Distress, Lungs Clear, Normal Breath Sounds, No Accessory Muscle Use. No: Decreased Breath Sounds, Crackles, Rhonchi, Wheezing, Stridor, Prolonged Expiration Cardiovascular: Normal Peripheral Pulses, Regular Rate, Rhythm, No Edema, No Gallop, No JVD, No Murmur, No Rub Peripheral Pulses: 3+: Radial (L), Radial (R) GI/Abdominal: Normal Bowel Sounds, Soft, Non-Tender, No Organomegaly, No Distention, No Abnormal Bruit, No Mass Back Exam: Normal Inspection, Full Range of Motion, NT Extremities: Normal Inspection, Normal Range of Motion, No Pedal Edema, Normal Capillary Refill Neurological: Alert, Oriented, Normal Cognition, No Motor/Sensory Deficits Psychiatric: Normal Affect Skin Exam: Warm, Dry, Intact, Normal Color, No Rash #1 Interpretation EKG Date: 12/21/20 Time: 22:14 Rhythm: NSR Rate (Beats/Min): 80 [place]: Normal P-Wave: Present QRS: Other (Late transition) ST-T: Normal QT: Normal Comparison: No Change (12/11/2020) Course - Vital Signs Last Recorded V/S: Last Vital Signs Temp 36.3 C 12/22/20 04:00 Pulse 76 12/22/20 01:30 Resp 14 12/22/20 04:00 BP 104/59 L 12/22/20 04:00 Pulse Ox 94 L 12/22/20 04:06 - Orders/Labs/Meds Orders: Active Orders 24 hr Category Date Time Status Ang Chest [CT] Stat Exams 12/21/20 23:26 Taken Chest 1V Frontal [CR] Stat Exams 12/21/20 21:58 Taken BLOOD CULTURE [MREF] Stat Lab 12/21/20 10:22 Received BLOOD CULTURE [MREF] Stat Lab 12/21/20 10:30 Received Sodium Chloride 0.9% [Normal Saline] 1,000 ml Med 12/21/20 22:15 Active IV ASDIRECTED Blood Culture x2 Reflex Set [OM.PC] Stat Oth 12/21/20 22:00 Ordered Medication Orders Sodium Chloride (Normal Saline) 1,000 mls @ 150 mls/hr IV ASDIRECTED TEJAS Last Admin: 12/22/20 06:05 Dose: 150 mls/hr Documented by: Infusion: 12/22/20 06:05 Dose: 150 mls/hr Documented by: Admin: 12/21/20 22:25 Dose: 150 mls/hr Documented by: MANNIE Labs: Laboratory Tests 12/21/20 12/21/20 12/21/20 Range/Units 10: 22:22 22:22 WBC 14.34 H (3.98-10.04) K/mm3 RBC 4.22 (3.98-5.22) M/mm3 Hgb 12.0 (11.2-15.7) gm/dl Hct 37.8 (34.1-44.9) % MCV 89.6 (79.4-94.8) fl MCH 28.4 (25.6-32.2) pg MCHC 31.7 L (32.2-35.5) g/dl RDW Std Deviation 45.4 (36.4-46.3) fL Plt Count 167 L (182-369) K/mm3 MPV 10.2 (9.4-12.3) fl Neutrophils % (Manual) 64 H (40-60) % Band Neutrophils % 21 H (0-10) % Lymphocytes % (Manual) 8 L (20-40) % Atypical Lymphs % 0 % Monocytes % (Manual) 7 (2-10) % Eosinophils % (Manual) 0 L (0.7-5.8) % Basophils % (Manual) 0 L (0.1-1.2) Platelet Estimate Adequate Polychromasia 1+ slight Anisocytosis 2+ moderate Macrocytosis 1+ slight RBC Morph Comment Not Reportable D-Dimer, Quantitative > 35.20 H (0.19-0.50) mg/L Sodium 140 (136-145) mEq/L Potassium 3.7 D (3.5-5.1) mEq/L Chloride 107 (98-107) mEq/L Carbon Dioxide 20 L (21-32) mEq/L Anion Gap 16.7 H (5-15) BUN 35 H (7-18) mg/dL Creatinine 2.2 H (0.55-1.02) mg/dL Est Cr Clr Drug Dosing 18.72 mL/min Estimated GFR (MDRD) 22 (>60) mL/min BUN/Creatinine Ratio 15.9 (14-18) Glucose 228 H (70-99) mg/dL Lactic Acid (0.4-2.0) mmol/L Calcium 8.3 L (8.5-10.1) mg/dL Magnesium 2.1 (1.8-2.4) mg/dL Total Bilirubin 1.3 H (0.2-1.0) mg/dL AST 37 (15-37) U/L ALT 28 (14-59) U/L Alkaline Phosphatase 69 (46-116) U/L Troponin I < 0.017 (0.00-0.056) ng/mL C-Reactive Protein 13.1 H* (<1.0) mg/dL NT-Pro-B Natriuret Pep (0-125) pg/mL Total Protein 6.9 (6.4-8.2) g/dl Albumin 2.2 L (3.4-5.0) g/dl Globulin 4.7 gm/dL Albumin/Globulin Ratio 0.5 L (1-2) Ketones (0.0-0.3) mM Influenza Type A RNA (NEGATIVE) Influenza Type B RNA (NEGATIVE) SARS-CoV-2 RNA (RAD) (NEGATIVE) 12/21/20 12/21/20 12/21/20 Range/Units 22:22 22:22 22:22 WBC (3.98-10.04) K/mm3 RBC (3.98-5.22) M/mm3 Hgb (11.2-15.7) gm/dl Hct (34.1-44.9) % MCV (79.4-94.8) fl MCH (25.6-32.2) pg MCHC (32.2-35.5) g/dl RDW Std Deviation (36.4-46.3) fL Plt Count (182-369) K/mm3 MPV (9.4-12.3) fl Neutrophils % (Manual) (40-60) % Band Neutrophils % (0-10) % Lymphocytes % (Manual) (20-40) % Atypical Lymphs % % Monocytes % (Manual) (2-10) % Eosinophils % (Manual) (0.7-5.8) % Basophils % (Manual) (0.1-1.2) Platelet Estimate Polychromasia Anisocytosis Macrocytosis RBC Morph Comment D-Dimer, Quantitative (0.19-0.50) mg/L Sodium (136-145) mEq/L Potassium (3.5-5.1) mEq/L Chloride (98-107) mEq/L Carbon Dioxide (21-32) mEq/L Anion Gap (5-15) BUN (7-18) mg/dL Creatinine (0.55-1.02) mg/dL Est Cr Clr Drug Dosing mL/min Estimated GFR (MDRD) (>60) mL/min BUN/Creatinine Ratio (14-18) Glucose (70-99) mg/dL Lactic Acid 1.8 (0.4-2.0) mmol/L Calcium (8.5-10.1) mg/dL Magnesium (1.8-2.4) mg/dL Total Bilirubin (0.2-1.0) mg/dL AST (15-37) U/L ALT (14-59) U/L Alkaline Phosphatase (46-116) U/L Troponin I (0.00-0.056) ng/mL C-Reactive Protein (<1.0) mg/dL NT-Pro-B Natriuret Pep 1742 H (0-125) pg/mL Total Protein (6.4-8.2) g/dl Albumin (3.4-5.0) g/dl Globulin gm/dL Albumin/Globulin Ratio (1-2) Ketones 0.3 (0.0-0.3) mM Influenza Type A RNA (NEGATIVE) Influenza Type B RNA (NEGATIVE) SARS-CoV-2 RNA (RAD) (NEGATIVE) 12/22/20 Range/Units 00:20 WBC (3.98-10.04) K/mm3 RBC (3.98-5.22) M/mm3 Hgb (11.2-15.7) gm/dl Hct (34.1-44.9) % MCV (79.4-94.8) fl MCH (25.6-32.2) pg MCHC (32.2-35.5) g/dl RDW Std Deviation (36.4-46.3) fL Plt Count (182-369) K/mm3 MPV (9.4-12.3) fl Neutrophils % (Manual) (40-60) % Band Neutrophils % (0-10) % Lymphocytes % (Manual) (20-40) % Atypical Lymphs % % Monocytes % (Manual) (2-10) % Eosinophils % (Manual) (0.7-5.8) % Basophils % (Manual) (0.1-1.2) Platelet Estimate Polychromasia Anisocytosis Macrocytosis RBC Morph Comment D-Dimer, Quantitative (0.19-0.50) mg/L Sodium (136-145) mEq/L Potassium (3.5-5.1) mEq/L Chloride (98-107) mEq/L Carbon Dioxide (21-32) mEq/L Anion Gap (5-15) BUN (7-18) mg/dL Creatinine (0.55-1.02) mg/dL Est Cr Clr Drug Dosing mL/min Estimated GFR (MDRD) (>60) mL/min BUN/Creatinine Ratio (14-18) Glucose (70-99) mg/dL Lactic Acid (0.4-2.0) mmol/L Calcium (8.5-10.1) mg/dL Magnesium (1.8-2.4) mg/dL Total Bilirubin (0.2-1.0) mg/dL AST (15-37) U/L ALT (14-59) U/L Alkaline Phosphatase (46-116) U/L Troponin I (0.00-0.056) ng/mL C-Reactive Protein (<1.0) mg/dL NT-Pro-B Natriuret Pep (0-125) pg/mL Total Protein (6.4-8.2) g/dl Albumin (3.4-5.0) g/dl Globulin gm/dL Albumin/Globulin Ratio (1-2) Ketones (0.0-0.3) mM Influenza Type A RNA Negative (NEGATIVE) Influenza Type B RNA Negative (NEGATIVE) SARS-CoV-2 RNA (RAD) Positive H (NEGATIVE) Meds: Medications Generic Name Dose Route Start Last Admin Trade Name Freq PRN Reason Stop Dose Admin Sodium Chloride 1,000 mls @ 150 mls/hr 12/21/20 22:15 12/22/20 06:05 Normal Saline IV 150 mls/hr ASDIRECTED TEJAS Administration Discontinued Medications Generic Name Dose Route Start Last Admin Trade Name José Miguel PRN Reason Stop Dose Admin Dexamethasone 6 mg 12/22/20 00:33 12/22/20 00:58 Dexamethasone 4 Mg Tab PO 12/22/20 00:34 6 mg ONETIME STA Administration Enoxaparin Sodium 95 mg 12/22/20 00:32 12/22/20 00:58 Enoxaparin 100 Mg/1 Ml Syringe SUBCUT 12/22/20 00:33 95 mg ONETIME STA Administration Ceftriaxone Sodium 2 gm/ 100 mls @ 200 mls/hr 12/21/20 23:24 12/21/20 23:56 Sodium Chloride IV 12/21/20 23:53 200 mls/hr ONETIME STA Administration - Re-Assessments/Exams Free Text/Narrative Re-Assessment/Exam: 12/21/20 22:02 I have ordered numerous blood tests, 2 sets of blood cultures, a portable chest x-ray, and an ECG. By now, the patient would be expected to have cleared the virus and test negative, however, if she still tests positive, a case could be made for treatment with remdesivir. I have therefore ordered a swab for the SARS-CoV-2 virus/influenza A + B viruses. In the meantime, the patient will be treated with some IV fluid. 12/21/20 22:56 Portable chest radiograph reviewed. The cardiac silhouette is within normal limits. No pulmonary vascular congestion. No pleural effusions seen on this AP view. There are extensive bilateral hazy infiltrates consistent with COVID-19 pneumonia. No pneumothorax. Formal read per the Radiologist pending. 12/21/20 23:25 The patient's CBC is remarkable for leukocytosis of 14.34, with 21% bandemia, and thrombocytopenia of 167,000, with the remainder of her CBC being unremarkable. Her CMP is remarkable for a bicarbonate decreased at 20, with an anion gap elevated at 16.7, a BUN/Cr elevated at 35/2.2, and hyperglycemia of 228, and the remainder of her CMP being unremarkable. Her magnesium level is within normal limits at 2.1. Her lactic acid level is within normal limits at 1.8. Her serum ketones are slightly elevated at 0.3. Her CRP is substantially elevated at 13.1. Her troponin is undetectably low. Her pro-BNP is modestly elevated at 1742. Her D-dimer is substantially elevated at >35.2. Reviewing prior labs, the patient's BUN/Cr was 40/2.5 on 12/11/2020. Based on the above, I have ordered 2 g of IV Rocephin and a CT angiogram of the chest to evaluate for PE. We we'll continue the current IV fluid at 150 mL/h. 12/22/20 00:23 CT angiogram of the chest is read by [facility] as: Extensive peripheral infiltrates. Consider atypical viral pneumonia as etiology Small peripheral pulmonary emboli as detailed above 12/22/20 00:[address] Maher at 00:27. He recommended that we treat the pulmonary emboli with Lovenox, and feels that the patient would still likely benefit from dexamethasone. I have ordered both. He accepted the patient for admission to the medical floor. He will look for the results of the SARS-CoV-2 virus/influenza viruses test tomorrow. 12/22/20 06:58 The patient's swab for the SARS-CoV-2 virus is positive. Her swab for the influenza A + B viruses is negative. Departure - Departure Time of Disposition: 00:35 Disposition: Admitted As Inpatient 64 Condition: Good Clinical Impression: COVID-19, Chronic renal insufficiency, Hyperglycemia due to type 2 diabetes mellitus - Discharge Information *PRESCRIPTION DRUG MONITORING PROGRAM REVIEWED*: Not Applicable *COPY OF PRESCRIPTION DRUG MONITORING REPORT IN PATIENT JOSEPH: Not Applicable Sepsis Event Note (ED) - Evaluation Sepsis Screening Result: No Definite Risk - Focused Exam Vital Signs: Vital Signs Temp Pulse Resp BP Pulse Ox 12/22/20 01:00 80 25 H 104/51 L 97 12/22/20 00:00 78 24 H 111/50 L 100 12/21/20 23:00 80 27 H 105/66 96 12/21/20 22:00 82 21 H 99/55 L 96 12/21/20 21:30 84 27 H 100/60 95 12/21/20 21:21 36.9 C 86 24 H 108/58 L 92 L - My Orders Last 24 Hours: My Active Orders 12/21/20 10:22 BLOOD CULTURE [MREF] Stat 12/21/20 10:30 BLOOD CULTURE [MREF] Stat 12/21/20 21:58 Chest 1V Frontal [CR] Stat 12/21/20 22:00 Blood Culture x2 Reflex Set [OM.PC] Stat 12/21/20 22:15 Sodium Chloride 0.9% [Normal Saline] 1,000 ml IV ASDIRECTED 12/21/20 23:26 Ang Chest [CT] Stat - Assessment/Plan Last 24 Hours: My Active Orders 12/21/20 10:22 BLOOD CULTURE [MREF] Stat 12/21/20 10:30 BLOOD CULTURE [MREF] Stat 12/21/20 21:58 Chest 1V Frontal [CR] Stat 12/21/20 22:00 Blood Culture x2 Reflex Set [OM.PC] Stat 12/21/20 22:15 Sodium Chloride 0.9% [Normal Saline] 1,000 ml IV ASDIRECTED 12/21/20 23:26 Ang Chest [CT] Stat
[2020-12-21] MEDS: Sodium Chloride 0.9% 1,000 ML IV SCH (22:25)
[2020-12-21] MEDS ORDERED: cefTRIAXone 2 GM in Sodium Chloride 0.9% 100 ML IV STA (23:24)
[2020-12-22] MEDS ORDERED: Enoxaparin 100 MG/1 ML Syringe SUBCUT STA (00:32)
[2020-12-22] MEDS ORDERED: Dexamethasone 4 MG Tab PO STA (00:33)
[2020-12-22 01:18] LABS: CORONAVIRUS COVID-19 NAA POSITIVE (NEGATIVE)
[2020-12-22] MEDS: Sodium Chloride 0.9% 1,000 ML IV SCH (06:05)
--- NOTE | 2020-12-22 07:07 | CT ---
CT chest Technique: Multiple axial sections through the chest were obtained. Intravenous contrast was utilized. Study has been performed as a pulmonary angiogram protocol. Findings: Small filling defects are seen within the segmental and subsegmental branches within the left lower lung and lingula compatible with mild pulmonary emboli. Thoracic aorta shows no aneurysm. Small mediastinal lymph nodes are seen which are believed to be within normal limits. No pericardial thickening is seen. Upper visualized abdominal structures show a duodenal diverticulum measuring 5.8 cm. Small amount of accessory splenic tissue is noted. Lung window settings were reviewed which show scattered areas of parenchymal density on both sides of the chest compatible with diffuse COVID pneumonia. Bone window settings were reviewed which show mild scattered degenerative change within the spine. No acute osseous finding is seen. Incidental note of several old healed right posterior rib fractures are noted. Impression: 1. Mild pulmonary emboli. 2. Diffuse increased density throughout both sides of the chest compatible with diffuse COVID pneumonia. 3. Duodenal diverticulum. Diagnostic code #5 I agree with preliminary report from [facility], finalized on 12/22/20, 1:19 AM CDT, code 1
--- NOTE | 2020-12-22 07:07 | CR ---
Chest: Frontal view of the chest was obtained. Comparison: Prior chest x-ray of 12/11/20. Increasing density is seen within both sides of the chest compatible with worsening probable COVID pneumonia. Heart size is normal. Tortuous thoracic aorta is seen. Bony structures show old right-sided rib fractures. Slight scoliosis is noted within the spine with mild scattered degenerative change within the spine. Impression: 1. Increasing density within both sides of the chest presumably due to worsening COVID pneumonia. 2. Other stable findings as noted above. Diagnostic code #3
[2020-12-22] MEDS ORDERED: Albuterol 0.083% 2.5 MG/3 ML Neb Soln NEB PRN (08:40)
[2020-12-22] MEDS ORDERED: Albuterol/Ipratropium 3.0-0.5 MG/3 ML Neb Soln NEB PRN (08:40)
[2020-12-22] MEDS ORDERED: Ondansetron 4 MG/2 ML SDV IV PRN (08:40)
--- NOTE | 2020-12-22 08:57 | PCM.HP.2 ---
H&P History of Present Illness - General Date of Service: 12/22/20 Admit Problem/Dx: Admission Diagnosis/Problem Admission Diagnosis/Problem Hypoxia - History of Present Illness Initial Comments - Free Text/Narative: 65-year-old female diagnosed with COVID-19 on 12/01/2020 was seen in the emergency department on 12/11/2020. She was seen because of decreased appetite and at that time found to be hypoxemic with SPO2 of 87% on room air. She was started on 2 L of supplemental O2 via nasal cannula and oxygen saturations increased to 97%. She was discharged home on supplemental oxygen and her oxygen saturations at home continued to decrease. She did have her oxygen increased to 3 L by her daughter 2 days ago and then yesterday she had worsening shortness of breath. Ultimately her daughter convinced her to come to the emergency department where her oxygen saturations were found to be 77% on 3 L. She complained of increased fatigue and shortness of breath. She was placed on nonrebreather and oxygen saturations increased to 92%. Her respiratory rate was 24/min and she was without distress. Patient was admitted to the hospital overnight for further treatment. Patient denies any nausea, vomiting, sore throa t, congestion, chest pain, palpitations, or headaches. CTA of the chest was performed because of a D-dimer that was greater than 35. CTA demonstrated mild pulmonary emboli with diffuse increased density throughout both sides of the chest compatible with diffuse Covid pneumonia. - Related Data Allergies/Adverse Reactions: Allergies Allergy/AdvReac Type Severity Reaction Status Date / Time No Known Allergies Allergy Verified 12/21/20 21:27 Home Medications: Home Meds Dulaglutide [Trulicity] 1 dose SUBCUT ASDIRECTED 12/22/20 [History] Insulin Aspart [Novolog Flexpen] 1 dose SUBCUT ASDIRECTED 12/22/20 [History] Levothyroxine 112 mcg PO ACBREAKFAST 12/22/20 [History] Pantoprazole [ProTONIX] 1 tab PO DAILY 12/22/20 [History] atorvaSTATin [Lipitor] 80 mg PO BEDTIME 12/22/20 [History] lisinopriL [Lisinopril] 1 tab PO DAILY 12/22/20 [History] Past Medical History HEENT History: Reports: Impaired Vision Other HEENT History: wears eyeglasses. Cardiovascular History: Reports: Afib, Hypertension Respiratory History: Reports: Pneumonia, Recurrent, Other (See Below) Other Respiratory History: has had pneumonia in infancy. Gastrointestinal History: Reports: None Genitourinary History: Reports: Chronic Renal Insuffiency [employer]IC History: Reports: Musculoskeletal History: Reports: Fracture Other Musculoskeletal History: rib fx's, knee injury. Neurological History: Reports: Migraines Psychiatric History: Reports: Depression Endocrine/Metabolic History: Reports: Diabetes, Type II, Obesity/BMI 30+ Hematologic History: Reports: Anemia Other Hematologic History: during . Oncologic (Cancer) History: Reports: None Dermatologic History: Reports: None - Infectious Disease History Infectious Disease History: Reports: Chicken Pox, Measles, Mumps, Novel Coronavirus - Past Surgical History Head Surgeries/Procedures: Reports: None HEENT Surgical History: Reports: Cataract Surgery Cardiovascular Surgical History: Reports: None Respiratory Surgical History: Reports: None Dermatological Surgical History: Reports: None Social & Family History - Tobacco Use Tobacco Use Status *Q: Never Tobacco User Second Hand Smoke Exposure: No - Caffeine Use Caffeine Use: Reports: None Caffeine Use Comment: 2 X per day - Recreational Drug Use Recreational Drug Use: No - Living Situation & Occupation Living situation: Reports: Single, Alone Occupation: Retired H&P Review of Systems - Review of Systems: Review Of Systems: Comprehensive ROS is negative, except as noted in HPI. Exam - Exam Exam: See Below - Vital Signs Vital Signs: Last Vital Signs Temp 97.4 F 12/22/20 04:00 Pulse 76 12/22/20 01:30 Resp 14 12/22/20 04:00 BP 104/59 L 12/22/20 04:00 Pulse Ox 94 L 12/22/20 04:06 Weight: 197 lb 1.6 oz - Exam Quality Assessment: Supplemental Oxygen General: Alert, Oriented, 4 Neck: Supple, Trachea Midline, 2 Lungs: Crackles (Crackles in the bases). No: Normal Respiratory Effort (Increased respiratory rate) Cardiovascular: Regular Rate, Regular Rhythm, Normal S1, Normal S2 GI/Abdominal Exam: Normal Bowel Sounds, Soft, Non-Tender, No Distention Extremities: Normal Inspection, Normal Range of Motion, Non-Tender, No Pedal Edema, Normal Capillary Refill Skin: Warm, Dry, Intact Neuro Extensive - Mental Status: Alert, Oriented x3, Normal Mood/Affect, Normal Cognition, Memory Intact Psychiatric: Alert, Normal Affect, Normal Mood - Patient Data Lab Results Last 24 hrs: Laboratory Results - last 24 hr 12/21/20 12/21/20 12/21/20 Range/Units 10:22 22:22 22:22 WBC 14.34 H (3.98-10.04) K/mm3 RBC 4.22 (3.98-5.22) M/mm3 Hgb 12.0 (11.2-15.7) gm/dl Hct 37.8 (34.1-44.9) % MCV 89.6 (79.4-94.8) fl MCH 28.4 (25.6-32.2) pg MCHC 31.7 L (32.2-35.5) g/dl RDW Std Deviation 45.4 (36.4-46.3) fL Plt Count 167 L (182-369) K/mm3 MPV 10.2 (9.4-12.3) fl Neut % (Auto) (34.0-71.1) % Lymph % (Auto) (19.3-51.7) % Miner % (Auto) (4.7-12.5) % Eos % (Auto) (0.7-5.8) Baso % (Auto) (0.1-1.2) % Neut # (Auto) (1.56-6.13) K/mm3 Lymph # (Auto) (1.18-3.74) K/mm3 Miner # (Auto) (0.24-0.36) K/mm3 Eos # (Auto) (0.04-0.36) K/mm3 Baso # (Auto) (0.01-0.08) K/mm3 Neutrophils % (Manual) 64 H (40-60) % Band Neutrophils % 21 H (0-10) % Lymphocytes % (Manual) 8 L (20-40) % Atypical Lymphs % 0 % Monocytes % (Manual) 7 (2-10) % Eosinophils % (Manual) 0 L (0.7-5.8) % Basophils % (Manual) 0 L (0.1-1.2) Platelet Estimate Adequate Polychromasia 1+ slight Anisocytosis 2+ moderate Macrocytosis 1+ slight RBC Morph Comment Not Reportable D-Dimer, Quantitative > 35.20 H (0.19-0.50) mg/L Sodium 140 (136-145) mEq/L Potassium 3.7 D (3.5-5.1) mEq/L Chloride 107 (98-107) mEq/L Carbon Dioxide 20 L (21-32) mEq/L Anion Gap 16.7 H (5-15) BUN 35 H (7-18) mg/dL Creatinine 2.2 H (0.55-1.02) mg/dL Est Cr Clr Drug Dosing 18.72 mL/min Estimated GFR (MDRD) 22 (>60) mL/min BUN/Creatinine Ratio 15.9 (14-18) Glucose 228 H (70-99) mg/dL Lactic Acid (0.4-2.0) mmol/L Calcium 8.3 L (8.5-10.1) mg/dL Magnesium 2.1 (1.8-2.4) mg/dL Total Bilirubin 1.3 H (0.2-1.0) mg/dL AST 37 (15-37) U/L ALT 28 (14-59) U/L Alkaline Phosphatase 69 (46-116) U/L Troponin I < 0.017 (0.00-0.056) ng/mL C-Reactive Protein 13.1 H* (<1.0) mg/dL NT-Pro-B Natriuret Pep (0-125) pg/mL Total Protein 6.9 (6.4-8.2) g/dl Albumin 2.2 L (3.4-5.0) g/dl Globulin 4.7 gm/dL Albumin/Globulin Ratio 0.5 L (1-2) Ketones (0.0-0.3) mM Influenza Type A RNA (NEGATIVE) Influenza Type B RNA (NEGATIVE) SARS-CoV-2 RNA (RAD) (NEGATIVE) 12/21/20 12/21/20 12/21/20 Range/Units 22:22 22:22 22:22 WBC (3.98-10.04) K/mm3 RBC (3.98-5.22) M/mm3 Hgb (11.2-15.7) gm/dl Hct (34.1-44.9) % MCV (79.4-94.8) fl MCH (25.6-32.2) pg MCHC (32.2-35.5) g/dl RDW Std Deviation (36.4-46.3) fL Plt Count (182-369) K/mm3 MPV (9.4-12.3) fl Neut % (Auto) (34.0-71.1) % Lymph % (Auto) (19.3-51.7) % Miner % (Auto) (4.7-12.5) % Eos % (Auto) (0.7-5.8) Baso % (Auto) (0.1-1.2) % Neut # (Auto) (1.56-6.13) K/mm3 Lymph # (Auto) (1.18-3.74) K/mm3 Miner # (Auto) (0.24-0.36) K/mm3 Eos # (Auto) (0.04-0.36) K/mm3 Baso # (Auto) (0.01-0.08) K/mm3 Neutrophils % (Manual) (40-60) % Band Neutrophils % (0-10) % Lymphocytes % (Manual) (20-40) % Atypical Lymphs % % Monocytes % (Manual) (2-10) % Eosinophils % (Manual) (0.7-5.8) % Basophils % (Manual) (0.1-1.2) Platelet Estimate Polychromasia Anisocytosis Macrocytosis RBC Morph Comment D-Dimer, Quantitative (0.19-0.50) mg/L Sodium (136-145) mEq/L Potassium (3.5-5.1) mEq/L Chloride (98-107) mEq/L Carbon Dioxide (21-32) mEq/L Anion Gap (5-15) BUN (7-18) mg/dL Creatinine (0.55-1.02) mg/dL Est Cr Clr Drug Dosing mL/min Estimated GFR (MDRD) (>60) mL/min BUN/Creatinine Ratio (14-18) Glucose (70-99) mg/dL Lactic Acid 1.8 (0.4-2.0) mmol/L Calcium (8.5-10.1) mg/dL Magnesium (1.8-2.4) mg/dL Total Bilirubin (0.2-1.0) mg/dL AST (15-37) U/L ALT (14-59) U/L Alkaline Phosphatase (46-116) U/L Troponin I (0.00-0.056) ng/mL C-Reactive Protein (<1.0) mg/dL NT-Pro-B Natriuret Pep 1742 H (0-125) pg/mL Total Protein (6.4-8.2) g/dl Albumin (3.4-5.0) g/dl Globulin gm/dL Albumin/Globulin Ratio (1-2) Ketones 0.3 (0.0-0.3) mM Influenza Type A RNA (NEGATIVE) Influenza Type B RNA (NEGATIVE) SARS-CoV-2 RNA (RAD) (NEGATIVE) 12/22/20 12/22/20 Range/Units 00:20 08:37 WBC 11.61 H (3.98-10.04) K/mm3 RBC 3.84 L (3.98-5.22) M/mm3 Hgb 10.9 L (11.2-15.7) gm/dl Hct 34.8 (34.1-44.9) % MCV 90.6 (79.4-94.8) fl MCH 28.4 (25.6-32.2) pg MCHC 31.3 L (32.2-35.5) g/dl RDW Std Deviation 46.6 H (36.4-46.3) fL Plt Count 176 L (182-369) K/mm3 MPV 10.3 (9.4-12.3) fl Neut % (Auto) 87.8 H (34.0-71.1) % Lymph % (Auto) 6.9 L (19.3-51.7) % Miner % (Auto) 2.4 L (4.7-12.5) % Eos % (Auto) 0 L (0.7-5.8) Baso % (Auto) 0.3 (0.1-1.2) % Neut # (Auto) 10.19 H (1.56-6.13) K/mm3 Lymph # (Auto) 0.80 L (1.18-3.74) K/mm3 Miner # (Auto) 0.28 (0.24-0.36) K/mm3 Eos # (Auto) 0.00 L (0.04-0.36) K/mm3 Baso # (Auto) 0.04 (0.01-0.08) K/mm3 Neutrophils % (Manual) (40-60) % Band Neutrophils % (0-10) % Lymphocytes % (Manual) (20-40) % Atypical Lymphs % % Monocytes % (Manual) (2-10) % Eosinophils % (Manual) (0.7-5.8) % Basophils % (Manual) (0.1-1.2) Platelet Estimate Polychromasia Anisocytosis Macrocytosis RBC Morph Comment D-Dimer, Quantitative (0.19-0.50) mg/L Sodium (136-145) mEq/L Potassium (3.5-5.1) mEq/L Chloride (98-107) mEq/L Carbon Dioxide (21-32) mEq/L Anion Gap (5-15) BUN (7-18) mg/dL Creatinine (0.55-1.02) mg/dL Est Cr Clr Drug Dosing mL/min Estimated GFR (MDRD) (>60) mL/min BUN/Creatinine Ratio (14-18) Glucose (70-99) mg/dL Lactic Acid (0.4-2.0) mmol/L Calcium (8.5-10.1) mg/dL Magnesium (1.8-2.4) mg/dL Total Bilirubin (0.2-1.0) mg/dL AST (15-37) U/L ALT (14-59) U/L Alkaline Phosphatase (46-116) U/L Troponin I (0.00-0.056) ng/mL C-Reactive Protein (<1.0) mg/dL NT-Pro-B Natriuret Pep (0-125) pg/mL Total Protein (6.4-8.2) g/dl Albumin (3.4-5.0) g/dl Globulin gm/dL Albumin/Globulin Ratio (1-2) Ketones (0.0-0.3) mM Influenza Type A RNA Negative (NEGATIVE) Influenza Type B RNA Negative (NEGATIVE) SARS-CoV-2 RNA (RAD) Positive H (NEGATIVE) Result Diagrams: 12/22/20 08:37 12/22/20 08:37 Sepsis Event Note - Evaluation Sepsis Screening Result: Possible Sepsis Risk - Focused Exam Vital Signs: Vital Signs Temp Pulse Resp BP Pulse Ox Pulse Ox 12/22/20 04:06 94 L 12/22/20 04:00 97.4 F 14 104/59 L 94 L 12/22/20 01:30 76 25 H 100 12/22/20 01:00 80 25 H 104/51 L 97 12/22/20 00:00 78 24 H 111/50 L 100 12/21/20 23:00 80 27 H 105/66 96 12/21/20 22:00 82 21 H 99/55 L 96 12/21/20 21:30 84 27 H 100/60 95 12/21/20 21:21 98.4 F 86 24 H 108/58 L 92 L - Problem List (1) COVID-19 SNOMED Code(s): 295525963 ICD Code: U07.1 - COVID-19 Status: Acute Current Visit: Yes (2) Chronic renal insufficiency SNOMED Code(s): 576692044 ICD Code: N18.9 - CHRONIC KIDNEY DISEASE, UNSPECIFIED Status: Acute Current Visit: Yes (3) Hyperglycemia due to type 2 diabetes mellitus SNOMED Code(s): 405323500482485, 821836853251739 ICD Code: E11.65 - TYPE 2 DIABETES MELLITUS WITH HYPERGLYCEMIA Status: Acute Current Visit: Yes (4) Pulmonary embolism associated with COVID-19 SNOMED Code(s): 356586784 ICD Code: U07.1 - COVID-19; I26.99 - OTHER PULMONARY EMBOLISM WITHOUT ACUTE COR PULMONALE Status: Acute Current Visit: Yes Problem List Initiated/Reviewed/Updated: Yes Orders Last 24hrs: Active Orders 24 hr Category Date Time Status Patient Status [ADT] Routine ADT 12/22/20 01:17 Active Nurse Communication: Isolation [RC] ASDIRECTED Care 12/22/20 08:40 Active Oxygen Therapy Adult [Oxygen Therapy] [RC] ASDIRECTED Care 12/22/20 04:06 Active RT Aerosol Therapy [RC] ASDIRECTED Care 12/22/20 08:42 Active RT Incentive Spirometry [RC] ASDIRECTED Care 12/22/20 08:40 Active Up With Assistance [RC] ASDIRECTED Care 12/22/20 08:40 Active VTE/DVT Education [RC] PER UNIT ROUTINE Care 12/22/20 08:40 Active Vital Signs [RC] Q4H Care 12/22/20 08:40 Active PT Evaluation and Treatment [CONS] Routine Cons 12/22/20 08:40 Active Respiratory Care Assess and Treatment [CONS] Routine Cons 12/22/20 08:40 Active Consistent Carbohydrate Diet [DIET] Diet 12/22/20 Breakfast Active BLOOD CULTURE [MREF] Stat Lab 12/21/20 10:22 Received BLOOD CULTURE [MREF] Stat Lab 12/21/20 10:30 Received C-REACTIVE PROTEIN [CHEM] AM Lab 12/23/20 05:11 Ordered CBC WITH AUTO DIFF [HEME] AM Lab 12/23/20 05:11 Ordered CMP [COMPREHENSIVE METABOLIC PN,CMP] [CHEM] AM Lab 12/23/20 05:11 Ordered COMPREHENSIVE METABOLIC PN,CMP [CHEM] Routine Lab 12/22/20 08:37 Received DD [D-DIMER QUANTITATIVE] [COAG] Routine Lab 12/22/20 08:37 Received GLYCOSYLATED HEMOGLOBIN,HGBA1C [CHEM] Routine Lab 12/22/20 08:37 Received MAGNESIUM [CHEM] AM Lab 12/23/20 05:11 Ordered MAGNESIUM [CHEM] Routine Lab 12/22/20 08:37 Received PHOSPHORUS [CHEM] AM Lab 12/23/20 05:11 Ordered TSH [CHEM] Routine Lab 12/22/20 08:37 Received Acetaminophen [TylenoL] Med 12/22/20 08:40 Active 650 mg PO Q4H PRN Albuterol [Proventil Neb Soln] Med 12/22/20 08:40 Active 2.5 mg NEB Q2H PRN Albuterol/Ipratropium [DuoNeb 3.0-0.5 MG/3 ML] Med 12/22/20 08:40 Active 3 ml NEB Q4H PRN Levothyroxine Med 12/23/20 06:00 Active 112 mcg PO ACBREAKFAST Ondansetron [Zofran] Med 12/22/20 08:40 Active 4 mg IV Q6H PRN Pantoprazole [ProTONIX] Med 12/22/20 09:00 Active 40 mg PO DAILY atorvaSTATin [Lipitor] Med 12/22/20 21:00 Active 80 mg PO BEDTIME dexAMETHasone Med 12/22/20 09:00 Active 6 mg PO DAILY Blood Culture x2 Reflex Set [OM.PC] Stat Oth 12/21/20 22:00 Ordered Isolation [COMM] Stat Oth 12/22/20 08:40 Ordered Resuscitation Status Routine Resus Stat 12/22/20 08:40 Ordered Medication Orders Acetaminophen (Acetaminophen 325 Mg Tab) 650 mg PO Q4H PRN PRN Reason: Pain (Mild 1-3)/fever Albuterol (Albuterol 0.083% 2.5 Mg/3 Ml Neb Soln) 2.5 mg NEB Q2H PRN PRN Reason: Shortness Of Breath/wheezing Albuterol/Ipratropium (Albuterol/Ipratropium 3.0-0.5 Mg/3 Ml Neb Soln) 3 ml NEB Q4H PRN PRN Reason: Shortness Of Breath/wheezing Atorvastatin Calcium (Atorvastatin 40 Mg Tab) 80 mg PO BEDTIME TEJAS Dexamethasone (Dexamethasone 4 Mg Tab) 6 mg PO DAILY TEJAS Stop: 12/30/20 09:01 Levothyroxine Sodium (Levothyroxine 112 Mcg Tab) 112 mcg PO ACBREAKFAST TEJAS Ondansetron HCl (Ondansetron 4 Mg/2 Ml Sdv) 4 mg IV Q6H PRN PRN Reason: Nausea/Vomiting Pantoprazole Sodium (Pantoprazole 40 Mg Tab.Cr) 40 mg PO DAILY TEJAS Assessment/Plan Comment:: 65-year-old female with Covid pneumonia presents to emergency department with worsening shortness of breath and oxygenation secondary to new onset pulmonary embolism. COVID-19 pneumonia Segmental and subsegmental bilateral pulmonary emboli * CTA confirmed COVID-19 pneumonia and pulmonary emboli * Severe hypoxemia in emergency department with SPO2 of 77% on 3 L * Requiring 15 L nonrebreather to keep oxygen saturations in the low 90s * Started on therapeutic dose Lovenox in the emergency department Poorly controlled insulin-dependent diabetes mellitus. Obesity * Hemoglobin A1c 8.5 * Home dose of insulin: Patient relayed to me that she was on 20 units of a once a day on acting insulin and a sliding scale fast acting insulin. Her m edication list on reconciliation had only Trulicity and NovoLog. * Increases likelihood of bad outcome with COVID-19 pneumonia Acute on chronic renal insufficiency. * Review of available creatinine levels shows a creatinine of 2.5 on 12/11/2020 and 1.8 on 09/11/2020 * On lisinopril at home Other medical problems include hyperlipidemia, hypertension, hypothyroidism, and GERD Plan * Admit to medical floor, patient is in ICU for overflow * Continue full dose Lovenox 1 mg/kg every 12 hours renally adjusted. * Dexamethasone 6 mg p.o. daily * Patient is out of the window for benefit from remdesivir. * FiO2 to keep SPO2 greater than 87 % * Sliding scale insulin * Lantus 16 units daily. * Bedside blood sugar check 4 times daily * Get procalcitonin * CBC, CMP, mag, CRP daily * Patient will need a switch from Lovenox to oral medication. We will start her on Eliquis in the morning. Eliquis 10 mg twice daily for 7 days then 5 mg tw ice daily after that. * Reconcile home meds * Renally adjust medications * CODE STATUS: Full code - Mortality Measure Prognosis:: Good
[2020-12-22] MEDS ORDERED: Dexamethasone 4 MG Tab PO SCH (09:00)
[2020-12-22] MEDS: Pantoprazole 40 MG Tab.CR PO SCH (09:24)
[2020-12-22 09:40] LABS: HEMOGLOBIN A1C 8.5 %
[2020-12-22] MEDS: Insulin Glargine,Hum.Rec.Anlog 100 UNIT/ML 3 ML Pen SUBCUT SCH (12:01)
[2020-12-22] MEDS: Insulin Lispro 100 Unit/ML 3 ML KwikPen SUBCUT SCH ×4 (12:03→21:38)
[2020-12-22] MEDS: Apixaban 5 MG Tab PO SCH (20:44)
[2020-12-22] MEDS: Dexamethasone 4 MG Tab PO SCH (20:44)
[2020-12-22] MEDS: cefTRIAXone 2 GM in Sodium Chloride 0.9% 100 ML IV SCH ×2 (20:44→21:38)
[2020-12-22] MEDS: atorvaSTATin 40 MG Tab PO SCH (20:44)
[2020-12-22] MEDS ORDERED: Enoxaparin 100 MG/1 ML Syringe SUBCUT SCH (23:00)
[2020-12-23] MEDS: Acetaminophen 325 MG Tab PO PRN ×2 (06:05→16:21)
[2020-12-23] MEDS: Levothyroxine 112 MCG Tab PO SCH (06:05)
[2020-12-23] MEDS: Insulin Lispro 100 Unit/ML 3 ML KwikPen SUBCUT SCH ×5 (06:27→22:56)
--- NOTE | 2020-12-23 07:39 | PCM.PN ---
- General Info Date of Service: 12/23/20 Admission Dx/Problem (Free Text): Admission Diagnosis/Problem Admission Diagnosis/Problem Hypoxia Subjective Update: Patient is a 65-year-old lady who was admitted secondary to hypoxia due to COVID-19 on December 22, 2020. The patient had been using supplemental oxygen at home and had to increase this to 3 to 4 L to keep her saturations above 80. Today the patient says that she has been breathing better. The patient has been tolerating her diet. She has no other complaints at this time. Functional Status: Reports: Pain Controlled, Tolerating Diet. Denies: New Symptoms - Review of Systems General: Reports: No Symptoms HEENT: Reports: No Symptoms Pulmonary: Reports: No Symptoms Cardiovascular: Reports: No Symptoms Gastrointestinal: Reports: No Symptoms Genitourinary: Reports: No Symptoms Musculoskeletal: Reports: No Symptoms Skin: Reports: No Symptoms Neurological: Reports: No Symptoms Psychiatric: Reports: No Symptoms - Patient Data Vitals - Most Recent: Last Vital Signs Temp 36.1 C 12/22/20 15:00 Pulse 87 12/22/20 15:00 Resp 22 H 12/22/20 15:00 BP 132/76 12/22/20 15:00 Pulse Ox 90 L 12/22/20 15:00 Weight - Most Recent: 90.174 kg I&O - Last 24 Hours: Intake & Output 12/22/20 12/23/20 12/23/20 22:59 06:59 14:59 Intake Total 1540 700 Output Total 400 200 Balance 1140 500 Lab Results Last 24 Hours: Laboratory Results - last 24 hr 12/22/20 12/22/20 12/22/20 Range/Units 08:37 08:37 08:37 WBC 11.61 H (3.98-10.04) K/mm3 RBC 3.84 L (3.98-5.22) M/mm3 Hgb 10.9 L (11.2-15.7) gm/dl Hct 34.8 (34.1-44.9) % MCV 90.6 (79.4-94.8) fl MCH 28.4 (25.6-32.2) pg MCHC 31.3 L (32.2-35.5) g/dl RDW Std Deviation 46.6 H (36.4-46.3) fL Plt Count 176 L (182-369) K/mm3 MPV 10.3 (9.4-12.3) fl Neut % (Auto) 87.8 H (34.0-71.1) % Lymph % (Auto) 6.9 L (19.3-51.7) % [place] % (Auto) 2.4 L (4.7-12.5) % Eos % (Auto) 0 L (0.7-5.8) Baso % (Auto) 0.3 (0.1-1.2) % Neut # (Auto) 10.19 H (1.56-6.13) K/mm3 Lymph # (Auto) 0.80 L (1.18-3.74) K/mm3 [place] # (Auto) 0.28 (0.24-0.36) K/mm3 Eos # (Auto) 0.00 L (0.04-0.36) K/mm3 Baso # (Auto) 0.04 (0.01-0.08) K/mm3 Manual Slide Review D-Dimer, Quantitative > 35.20 H (0.19-0.50) mg/L Sodium 136 (136-145) mEq/L Potassium 4.4 (3.5-5.1) mEq/L Chloride 107 (98-107) mEq/L Carbon Dioxide 15 L (21-32) mEq/L Anion Gap 18.4 H (5-15) BUN 37 H (7-18) mg/dL Creatinine 1.9 H (0.55-1.02) mg/dL Est Cr Clr Drug Dosing 21.68 mL/min Estimated GFR (MDRD) 26 (>60) mL/min BUN/Creatinine Ratio 19.5 H (14-18) Glucose 299 H (70-99) mg/dL POC Glucose (70-99) mg/dL Hemoglobin A1c ( - 5.6) % Calcium 7.7 L (8.5-10.1) mg/dL Phosphorus (2.6-4.7) mg/dL Magnesium 2.2 (1.8-2.4) mg/dL Total Bilirubin 0.5 (0.2-1.0) mg/dL AST 32 (15-37) U/L ALT 22 (14-59) U/L Alkaline Phosphatase 61 (46-116) U/L C-Reactive Protein (<1.0) mg/dL Total Protein 6.3 L (6.4-8.2) g/dl Albumin 1.9 L (3.4-5.0) g/dl Globulin 4.4 gm/dL Albumin/Globulin Ratio 0.4 L (1-2) Procalcitonin ng/mL TSH 3rd Generation (0.358-3.74) uIU/mL 12/22/20 12/22/20 12/22/20 Range/Units 08:37 08:37 10:22 WBC (3.98-10.04) K/mm3 RBC (3.98-5.22) M/mm3 Hgb (11.2-15.7) gm/dl Hct (34.1-44.9) % MCV (79.4-94.8) fl MCH (25.6-32.2) pg MCHC (32.2-35.5) g/dl RDW Std Deviation (36.4-46.3) fL Plt Count (182-369) K/mm3 MPV (9.4-12.3) fl Neut % (Auto) (34.0-71.1) % Lymph % (Auto) (19.3-51.7) % [place] % (Auto) (4.7-12.5) % Eos % (Auto) (0.7-5.8) Baso % (Auto) (0.1-1.2) % Neut # (Auto) (1.56-6.13) K/mm3 Lymph # (Auto) (1.18-3.74) K/mm3 [place] # (Auto) (0.24-0.36) K/mm3 Eos # (Auto) (0.04-0.36) K/mm3 Baso # (Auto) (0.01-0.08) K/mm3 Manual Slide Review D-Dimer, Quantitative (0.19-0.50) mg/L Sodium (136-145) mEq/L Potassium (3.5-5.1) mEq/L Chloride (98-107) mEq/L Carbon Dioxide (21-32) mEq/L Anion Gap (5-15) BUN (7-18) mg/dL Creatinine (0.55-1.02) mg/dL Est Cr Clr Drug Dosing mL/min Estimated GFR (MDRD) (>60) mL/min BUN/Creatinine Ratio (14-18) Glucose (70-99) mg/dL POC Glucose (70-99) mg/dL Hemoglobin A1c 8.5 H ( - 5.6) % Calcium (8.5-10.1) mg/dL Phosphorus (2.6-4.7) mg/dL Magnesium (1.8-2.4) mg/dL Total Bilirubin (0.2-1.0) mg/dL AST (15-37) U/L ALT (14-59) U/L Alkaline Phosphatase (46-116) U/L C-Reactive Protein (<1.0) mg/dL Total Protein (6.4-8.2) g/dl Albumin (3.4-5.0) g/dl Globulin gm/dL Albumin/Globulin Ratio (1-2) Procalcitonin 0.48 H ng/mL TSH 3rd Generation 0.147 L (0.358-3.74) uIU/mL 12/22/20 12/22/20 12/22/20 Range/Units 12:00 17:13 20:48 WBC (3.98-10.04) K/mm3 RBC (3.98-5.22) M/mm3 Hgb (11.2-15.7) gm/dl Hct (34.1-44.9) % MCV (79.4-94.8) fl MCH (25.6-32.2) pg MCHC (32.2-35.5) g/dl RDW Std Deviation (36.4-46.3) fL Plt Count (182-369) K/mm3 MPV (9.4-12.3) fl Neut % (Auto) (34.0-71.1) % Lymph % (Auto) (19.3-51.7) % [place] % (Auto) (4.7-12.5) % Eos % (Auto) (0.7-5.8) Baso % (Auto) (0.1-1.2) % Neut # (Auto) (1.56-6.13) K/mm3 Lymph # (Auto) (1.18-3.74) K/mm3 [place] # (Auto) (0.24-0.36) K/mm3 Eos # (Auto) (0.04-0.36) K/mm3 Baso # (Auto) (0.01-0.08) K/mm3 Manual Slide Review D-Dimer, Quantitative (0.19-0.50) mg/L Sodium (136-145) mEq/L Potassium (3.5-5.1) mEq/L Chloride (98-107) mEq/L Carbon Dioxide (21-32) mEq/L Anion Gap (5-15) BUN (7-18) mg/dL Creatinine (0.55-1.02) mg/dL Est Cr Clr Drug Dosing mL/min Estimated GFR (MDRD) (>60) mL/min BUN/Creatinine Ratio (14-18) Glucose (70-99) mg/dL POC Glucose 319 H 377 H 365 H (70-99) mg/dL Hemoglobin A1c ( - 5.6) % Calcium (8.5-10.1) mg/dL Phosphorus (2.6-4.7) mg/dL Magnesium (1.8-2.4) mg/dL Total Bilirubin (0.2-1.0) mg/dL AST (15-37) U/L ALT (14-59) U/L Alkaline Phosphatase (46-116) U/L C-Reactive Protein (<1.0) mg/dL Total Protein (6.4-8.2) g/dl Albumin (3.4-5.0) g/dl Globulin gm/dL Albumin/Globulin Ratio (1-2) Procalcitonin ng/mL TSH 3rd Generation (0.358-3.74) uIU/mL 12/23/20 12/23/20 12/23/20 Range/Units 05:05 05:05 06:09 WBC 12.55 H (3.98-10.04) K/mm3 RBC 3.93 L (3.98-5.22) M/mm3 Hgb 11.1 L (11.2-15.7) gm/dl Hct 35.9 (34.1-44.9) % MCV 91.3 (79.4-94.8) fl MCH 28.2 (25.6-32.2) pg MCHC 30.9 L (32.2-35.5) g/dl RDW Std Deviation 46.6 H (36.4-46.3) fL Plt Count 194 (182-369) K/mm3 MPV 10.7 (9.4-12.3) fl Neut % (Auto) 83.9 H (34.0-71.1) % Lymph % (Auto) 6.4 L (19.3-51.7) % [place] % (Auto) 6.2 (4.7-12.5) % Eos % (Auto) 0 L (0.7-5.8) Baso % (Auto) 0.2 (0.1-1.2) % Neut # (Auto) 10.53 H (1.56-6.13) K/mm3 Lymph # (Auto) 0.80 L (1.18-3.74) K/mm3 [place] # (Auto) 0.78 H (0.24-0.36) K/mm3 Eos # (Auto) 0.00 L (0.04-0.36) K/mm3 Baso # (Auto) 0.03 (0.01-0.08) K/mm3 Manual Slide Review Abnormal smear D-Dimer, Quantitative (0.19-0.50) mg/L Sodium 139 (136-145) mEq/L Potassium 4.2 (3.5-5.1) mEq/L Chloride 108 H (98-107) mEq/L Carbon Dioxide 16 L (21-32) mEq/L Anion Gap 19.2 H (5-15) BUN 40 H (7-18) mg/dL Creatinine 1.9 H (0.55-1.02) mg/dL Est Cr Clr Drug Dosing 21.68 mL/min Estimated GFR (MDRD) 26 (>60) mL/min BUN/Creatinine Ratio 21.1 H (14-18) Glucose 402 H* (70-99) mg/dL POC Glucose 394 H (70-99) mg/dL Hemoglobin A1c ( - 5.6) % Calcium 7.8 L (8.5-10.1) mg/dL Phosphorus 4.0 (2.6-4.7) mg/dL Magnesium 2.3 (1.8-2.4) mg/dL Total Bilirubin 0.4 (0.2-1.0) mg/dL AST 27 (15-37) U/L ALT 24 (14-59) U/L Alkaline Phosphatase 59 (46-116) U/L C-Reactive Protein 7.1 H* (<1.0) mg/dL Total Protein 5.9 L (6.4-8.2) g/dl Albumin 2.0 L (3.4-5.0) g/dl Globulin 3.9 gm/dL Albumin/Globulin Ratio 0.5 L (1-2) Procalcitonin ng/mL TSH 3rd Generation (0.358-3.74) uIU/mL Med Orders - Current: Current Medications Acetaminophen (Acetaminophen 325 Mg Tab) 650 mg PO Q4H PRN PRN Reason: Pain (Mild 1-3)/fever Last Admin: 12/23/20 06:05 Dose: 650 mg Documented by: Albuterol (Albuterol 0.083% 2.5 Mg/3 Ml Neb Soln) 2.5 mg NEB Q2H PRN PRN Reason: Shortness Of Breath/wheezing Albuterol/Ipratropium (Albuterol/Ipratropium 3.0-0.5 Mg/3 Ml Neb Soln) 3 ml NEB Q4H PRN PRN Reason: Shortness Of Breath/wheezing Apixaban (Apixaban 5 Mg Tab) 10 mg PO BID [facility] Last Admin: 12/22/20 20:44 Dose: 10 mg Documented by: Atorvastatin Calcium (Atorvastatin 40 Mg Tab) 80 mg PO BEDTIME [facility] Last Admin: 12/22/20 20:44 Dose: 80 mg Documented by: Dexamethasone (Dexamethasone 4 Mg Tab) 6 mg PO BEDTIME [facility] Stop: 12/30/20 21:01 Last Admin: 12/22/20 20:44 Dose: 6 mg Documented by: Ceftriaxone Sodium 2 gm/ (Sodium Chloride) 100 mls @ 200 mls/hr IV Q24H [facility] Last Admin: 12/22/20 21:38 Dose: Not Given Documented by: Insulin Glargine (Insulin Glargine,Hum.Rec.Anlog 100 Unit/Ml 3 Ml Pen) 16 unit SUBCUT DAILY [facility] Last Admin: 12/22/20 12:01 Dose: 16 unit Documented by: Insulin Human Lispro (Insulin Lispro 100 Unit/Ml 3 Ml Kwikpen) 0 unit SUBCUT QIDACANDBED [facility]; Protocol Last Admin: 12/23/20 06:27 Dose: 10 unit Documented by: Levothyroxine Sodium (Levothyroxine 112 Mcg Tab) 112 mcg PO ACBREAKFAST [facility] Last Admin: 12/23/20 06:05 Dose: 112 mcg Documented by: Ondansetron HCl (Ondansetron 4 Mg/2 Ml Sdv) 4 mg IV Q6H PRN PRN Reason: Nausea/Vomiting Pantoprazole Sodium (Pantoprazole 40 Mg Tab.Cr) 40 mg PO DAILY [facility] Last Admin: 12/22/20 09:24 Dose: 40 mg Documented by: Discontinued Medications Dexamethasone (Dexamethasone 4 Mg Tab) 6 mg PO ONETIME STA Stop: 12/22/20 00:34 Last Admin: 12/22/20 00:58 Dose: 6 mg Documented by: Dexamethasone (Dexamethasone 4 Mg Tab) 6 mg PO DAILY [facility] Stop: 12/30/20 09:01 Last Admin: 12/22/20 09:28 Dose: Not Given Documented by: Enoxaparin Sodium (Enoxaparin 100 Mg/1 Ml Syringe) 95 mg SUBCUT ONETIME STA Stop: 12/22/20 00:33 Last Admin: 12/22/20 00:58 Dose: 95 mg Documented by: Enoxaparin Sodium (Enoxaparin 100 Mg/1 Ml Syringe) 90 mg SUBCUT Q24H [facility] Sodium Chloride (Normal Saline) 1,000 mls @ 150 mls/hr IV ASDIRECTED [facility] Last Admin: 12/22/20 06:05 Dose: 150 mls/hr Documented by: Ceftriaxone Sodium 2 gm/ (Sodium Chloride) 100 mls @ 200 mls/hr IV ONETIME STA Stop: 12/21/20 23:53 Last Admin: 12/21/20 23:56 Dose: 200 mls/hr Documented by: - Exam Quality Assessment: Supplemental Oxygen, DVT Prophylaxis General: Alert, Oriented, Cooperative, No Acute Distress HEENT: Pupils Equal, Pupils Reactive, EOMI, Mucous Membr. Moist/[place] Neck: Supple, Trachea Midline, No JVD, No Thyromegaly Lungs: Clear to Auscultation, Normal Respiratory Effort Cardiovascular: Regular Rate, Regular Rhythm GI/Abdominal Exam: Normal Bowel Sounds, Soft, Non-Tender, No Distention (Female) Exam: Deferred Back Exam: Normal Inspection, Full Range of Motion Extremities: Normal Inspection, Normal Range of Motion, No Pedal Edema Skin: Warm, Dry, Intact Neurological: No New Focal Deficit Psy/Mental Status: Alert, Normal Affect, Normal Mood - Patient Data Lab Results Last 24 hrs: Laboratory Results - last 24 hr 12/22/20 12/22/20 12/22/20 Range/Units 08:37 08:37 08:37 WBC 11.61 H (3.98-10.04) K/mm3 RBC 3.84 L (3.98-5.22) M/mm3 Hgb 10.9 L (11.2-15.7) gm/dl Hct 34.8 (34.1-44.9) % MCV 90.6 (79.4-94.8) fl MCH 28.4 (25.6-32.2) pg MCHC 31.3 L (32.2-35.5) g/dl RDW Std Deviation 46.6 H (36.4-46.3) fL Plt Count 176 L (182-369) K/mm3 MPV 10.3 (9.4-12.3) fl Neut % (Auto) 87.8 H (34.0-71.1) % Lymph % (Auto) 6.9 L (19.3-51.7) % [place] % (Auto) 2.4 L (4.7-12.5) % Eos % (Auto) 0 L (0.7-5.8) Baso % (Auto) 0.3 (0.1-1.2) % Neut # (Auto) 10.19 H (1.56-6.13) K/mm3 Lymph # (Auto) 0.80 L (1.18-3.74) K/mm3 [place] # (Auto) 0.28 (0.24-0.36) K/mm3 Eos # (Auto) 0.00 L (0.04-0.36) K/mm3 Baso # (Auto) 0.04 (0.01-0.08) K/mm3 Manual Slide Review D-Dimer, Quantitative > 35.20 H (0.19-0.50) mg/L Sodium 136 (136-145) mEq/L Potassium 4.4 (3.5-5.1) mEq/L Chloride 107 (98-107) mEq/L Carbon Dioxide 15 L (21-32) mEq/L Anion Gap 18.4 H (5-15) BUN 37 H (7-18) mg/dL Creatinine 1.9 H (0.55-1.02) mg/dL Est Cr Clr Drug Dosing 21.68 mL/min Estimated GFR (MDRD) 26 (>60) mL/min BUN/Creatinine Ratio 19.5 H (14-18) Glucose 299 H (70-99) mg/dL POC Glucose (70-99) mg/dL Hemoglobin A1c ( - 5.6) % Calcium 7.7 L (8.5-10.1) mg/dL Phosphorus (2.6-4.7) mg/dL Magnesium 2.2 (1.8-2.4) mg/dL Total Bilirubin 0.5 (0.2-1.0) mg/dL AST 32 (15-37) U/L ALT 22 (14-59) U/L Alkaline Phosphatase 61 (46-116) U/L C-Reactive Protein (<1.0) mg/dL Total Protein 6.3 L (6.4-8.2) g/dl Albumin 1.9 L (3.4-5.0) g/dl Globulin 4.4 gm/dL Albumin/Globulin Ratio 0.4 L (1-2) Procalcitonin ng/mL TSH 3rd Generation (0.358-3.74) uIU/mL 12/22/20 12/22/20 12/22/20 Range/Units 08:37 08:37 10:22 WBC (3.98-10.04) K/mm3 RBC (3.98-5.22) M/mm3 Hgb (11.2-15.7) gm/dl Hct (34.1-44.9) % MCV (79.4-94.8) fl MCH (25.6-32.2) pg MCHC (32.2-35.5) g/dl RDW Std Deviation (36.4-46.3) fL Plt Count (182-369) K/mm3 MPV (9.4-12.3) fl Neut % (Auto) (34.0-71.1) % Lymph % (Auto) (19.3-51.7) % [place] % (Auto) (4.7-12.5) % Eos % (Auto) (0.7-5.8) Baso % (Auto) (0.1-1.2) % Neut # (Auto) (1.56-6.13) K/mm3 Lymph # (Auto) (1.18-3.74) K/mm3 [place] # (Auto) (0.24-0.36) K/mm3 Eos # (Auto) (0.04-0.36) K/mm3 Baso # (Auto) (0.01-0.08) K/mm3 Manual Slide Review D-Dimer, Quantitative (0.19-0.50) mg/L Sodium (136-145) mEq/L Potassium (3.5-5.1) mEq/L Chloride (98-107) mEq/L Carbon Dioxide (21-32) mEq/L Anion Gap (5-15) BUN (7-18) mg/dL Creatinine (0.55-1.02) mg/dL Est Cr Clr Drug Dosing mL/min Estimated GFR (MDRD) (>60) mL/min BUN/Creatinine Ratio (14-18) Glucose (70-99) mg/dL POC Glucose (70-99) mg/dL Hemoglobin A1c 8.5 H ( - 5.6) % Calcium (8.5-10.1) mg/dL Phosphorus (2.6-4.7) mg/dL Magnesium (1.8-2.4) mg/dL Total Bilirubin (0.2-1.0) mg/dL AST (15-37) U/L ALT (14-59) U/L Alkaline Phosphatase (46-116) U/L C-Reactive Protein (<1.0) mg/dL Total Protein (6.4-8.2) g/dl Albumin (3.4-5.0) g/dl Globulin gm/dL Albumin/Globulin Ratio (1-2) Procalcitonin 0.48 H ng/mL TSH 3rd Generation 0.147 L (0.358-3.74) uIU/mL 12/22/20 12/22/20 12/22/20 Range/Units 12:00 17:13 20:48 WBC (3.98-10.04) K/mm3 RBC (3.98-5.22) M/mm3 Hgb (11.2-15.7) gm/dl Hct (34.1-44.9) % MCV (79.4-94.8) fl MCH (25.6-32.2) pg MCHC (32.2-35.5) g/dl RDW Std Deviation (36.4-46.3) fL Plt Count (182-369) K/mm3 MPV (9.4-12.3) fl Neut % (Auto) (34.0-71.1) % Lymph % (Auto) (19.3-51.7) % [place] % (Auto) (4.7-12.5) % Eos % (Auto) (0.7-5.8) Baso % (Auto) (0.1-1.2) % Neut # (Auto) (1.56-6.13) K/mm3 Lymph # (Auto) (1.18-3.74) K/mm3 [place] # (Auto) (0.24-0.36) K/mm3 Eos # (Auto) (0.04-0.36) K/mm3 Baso # (Auto) (0.01-0.08) K/mm3 Manual Slide Review D-Dimer, Quantitative (0.19-0.50) mg/L Sodium (136-145) mEq/L Potassium (3.5-5.1) mEq/L Chloride (98-107) mEq/L Carbon Dioxide (21-32) mEq/L Anion Gap (5-15) BUN (7-18) mg/dL Creatinine (0.55-1.02) mg/dL Est Cr Clr Drug Dosing mL/min Estimated GFR (MDRD) (>60) mL/min BUN/Creatinine Ratio (14-18) Glucose (70-99) mg/dL POC Glucose 319 H 377 H 365 H (70-99) mg/dL Hemoglobin A1c ( - 5.6) % Calcium (8.5-10.1) mg/dL Phosphorus (2.6-4.7) mg/dL Magnesium (1.8-2.4) mg/dL Total Bilirubin (0.2-1.0) mg/dL AST (15-37) U/L ALT (14-59) U/L Alkaline Phosphatase (46-116) U/L C-Reactive Protein (<1.0) mg/dL Total Protein (6.4-8.2) g/dl Albumin (3.4-5.0) g/dl Globulin gm/dL Albumin/Globulin Ratio (1-2) Procalcitonin ng/mL TSH 3rd Generation (0.358-3.74) uIU/mL 10/23/21 10/23/21 10/23/21 Range/Units 05:05 05:05 06:09 WBC 12.55 H (3.98-10.04) K/mm3 RBC 3.93 L (3.98-5.22) M/mm3 Hgb 11.1 L (11.2-15.7) gm/dl Hct 35.9 (34.1-44.9) % MCV 91.3 (79.4-94.8) fl MCH 28.2 (25.6-32.2) pg MCHC 30.9 L (32.2-35.5) g/dl RDW Std Deviation 46.6 H (36.4-46.3) fL Plt Count 194 (182-369) K/mm3 MPV 10.7 (9.4-12.3) fl Neut % (Auto) 83.9 H (34.0-71.1) % Lymph % (Auto) 6.4 L (19.3-51.7) % [place] % (Auto) 6.2 (4.7-12.5) % Eos % (Auto) 0 L (0.7-5.8) Baso % (Auto) 0.2 (0.1-1.2) % Neut # (Auto) 10.53 H (1.56-6.13) K/mm3 Lymph # (Auto) 0.80 L (1.18-3.74) K/mm3 [place] # (Auto) 0.78 H (0.24-0.36) K/mm3 Eos # (Auto) 0.00 L (0.04-0.36) K/mm3 Baso # (Auto) 0.03 (0.01-0.08) K/mm3 Manual Slide Review Abnormal smear D-Dimer, Quantitative (0.19-0.50) mg/L Sodium 139 (136-145) mEq/L Potassium 4.2 (3.5-5.1) mEq/L Chloride 108 H (98-107) mEq/L Carbon Dioxide 16 L (21-32) mEq/L Anion Gap 19.2 H (5-15) BUN 40 H (7-18) mg/dL Creatinine 1.9 H (0.55-1.02) mg/dL Est Cr Clr Drug Dosing 21.68 mL/min Estimated GFR (MDRD) 26 (>60) mL/min BUN/Creatinine Ratio 21.1 H (14-18) Glucose 402 H* (70-99) mg/dL POC Glucose 394 H (70-99) mg/dL Hemoglobin A1c ( - 5.6) % Calcium 7.8 L (8.5-10.1) mg/dL Phosphorus 4.0 (2.6-4.7) mg/dL Magnesium 2.3 (1.8-2.4) mg/dL Total Bilirubin 0.4 (0.2-1.0) mg/dL AST 27 (15-37) U/L ALT 24 (14-59) U/L Alkaline Phosphatase 59 (46-116) U/L C-Reactive Protein 7.1 H* (<1.0) mg/dL Total Protein 5.9 L (6.4-8.2) g/dl Albumin 2.0 L (3.4-5.0) g/dl Globulin 3.9 gm/dL Albumin/Globulin Ratio 0.5 L (1-2) Procalcitonin ng/mL TSH 3rd Generation (0.358-3.74) uIU/mL Result Diagrams: 12/23/20 05:05 12/23/20 05:05 Sepsis Event Note - Evaluation Sepsis Screening Result: Sepsis Risk - Problem List & Annotations (1) Acute respiratory failure due to COVID-19 SNOMED Code(s): 964734107 Code(s): U07.1 - COVID-19; J96.00 - ACUTE RESPIRATORY FAILURE, UNSP W HYPOXIA OR HYPERCAPNIA Status: Acute Current Visit: Yes (2) Diabetes SNOMED Code(s): 72051191 Code(s): E11.9 - TYPE 2 DIABETES MELLITUS WITHOUT COMPLICATIONS Status: Acute Priority: High Current Visit: Yes Qualifiers: Diabetes mellitus type: other specified (including KATHE) Diabetes mellitus fdc insulin use: with fdc use Diabetes mellitus complication status: with kidney complications Diabetes mellitus complication detail: with chronic kidney disease Chronic kidney disease stage: stage 4 (severe) Qualified Code(s): 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; N18.4 - Chronic kidney disease, stage 4 (severe); Z79.4 - intermediate (current) use of insulin (3) Pneumonia due to 2019 novel coronavirus SNOMED Code(s): 013075679676208212 Code(s): U07.1 - COVID-19; J12.82 - PNEUMONIA DUE TO CORONAVIRUS DISEASE 2019 Status: Acute Current Visit: No (4) Chronic renal insufficiency SNOMED Code(s): 408673108 Code(s): N18.9 - CHRONIC KIDNEY DISEASE, UNSPECIFIED Status: Acute Priority: High Current Visit: Yes Qualifiers: Chronic kidney disease stage: stage 4 (severe) Qualified Code(s): N18.4 - Chronic kidney disease, stage 4 (severe) - Problem List Review Problem List Initiated/Reviewed/Updated: Yes - Plan Plan:: 65-year-old female with Covid pneumonia presents to emergency department with worsening shortness of breath and oxygenation secondary to new onset pulmonary embolism. COVID-19 pneumonia Segmental and subsegmental bilateral pulmonary emboli * CTA confirmed COVID-19 pneumonia and pulmonary emboli * Severe hypoxemia in emergency department with SPO2 of 77% on 3 L * Requiring 15 L nonrebreather to keep oxygen saturations in the low 90s * Started on therapeutic dose Lovenox in the emergency department Poorly controlled insulin-dependent diabetes mellitus. Obesity * Hemoglobin A1c 8.5 * Home dose of insulin: Patient relayed to me that she was on 20 units of a once a day on acting insulin and a sliding scale fast acting insulin. Her medication list on reconciliation had only Trulicity and NovoLog. * Increases likelihood of bad outcome with COVID-19 pneumonia Acute on chronic renal insufficiency. * Review of available creatinine levels shows a creatinine of 2.5 on 12/11/2020 and 1.8 on 09/11/2020 * On lisinopril at home Other medical problems include hyperlipidemia, hypertension, hypothyroidism, and GERD Plan * Admit to medical floor, patient is in ICU for overflow * Continue full dose Lovenox 1 mg/kg every 12 hours renally adjusted. * Dexamethasone 6 mg p.o. daily * Patient is out of the window for benefit from remdesivir. * FiO2 to keep SPO2 greater than 87 % * Sliding scale insulin * Lantus 16 units daily. * Bedside blood sugar check 4 times daily * Get procalcitonin * CBC, CMP, mag, CRP daily * Patient will need a switch from Lovenox to oral medication. We will start her on Eliquis in the morning. Eliquis 10 mg twice daily for 7 days then 5 mg twice daily after that. * Reconcile home meds * Renally adjust medications * CODE STATUS: Full code 12/23/2020 The patient is a 65-year-old lady who is doing somewhat better today. Her oxygen will continue to keep her saturations around 90 to 92%. The patient also has a history of chronic kidney disease likely related to her diabetes and her medications will be renally dosed. The patient be kept on a diabetic diet as tolerated. I have also increased the patient's Lantus due to her hypoglycemic episodes. The patient is currently anticoagulated on Eliquis secondary to her pulmonary emboli from COVID-19. She is on ceftriaxone 2 g daily and this will continue. Repeat laboratory studies have been ordered for the morning. The patient has been encouraged to ambulate. She should be appropriate for discharge once her oxygen demands have improved and she is back at her baseline. Physical therapy is also been ordered for the patient.
[2020-12-23] MEDS: Insulin Glargine,Hum.Rec.Anlog 100 UNIT/ML 3 ML Pen SUBCUT SCH (09:11)
[2020-12-23] MEDS: Apixaban 5 MG Tab PO SCH ×2 (09:11→21:28)
[2020-12-23] MEDS: Pantoprazole 40 MG Tab.CR PO SCH (09:11)
[2020-12-23] MEDS: atorvaSTATin 40 MG Tab PO SCH (21:25)
[2020-12-23] MEDS: cefTRIAXone 2 GM in Sodium Chloride 0.9% 100 ML IV SCH (21:28)
[2020-12-23] MEDS: Dexamethasone 4 MG Tab PO SCH (21:33)
[2020-12-24] MEDS: Insulin Lispro 100 Unit/ML 3 ML KwikPen SUBCUT SCH ×4 (07:03→21:48)
[2020-12-24] MEDS: Levothyroxine 112 MCG Tab PO SCH (07:04)
--- NOTE | 2020-12-24 08:59 | PCM.PN ---
- General Info Date of Service: 12/24/20 Admission Dx/Problem (Free Text): Admission Diagnosis/Problem Admission Diagnosis/Problem Hypoxia Subjective Update: Patient is a 65-year-old lady who had been admitted to acute hospitalization on December 22, 2020. She was found to be hypoxic. She had COVID-19 at the beginning of December. While here the patient has had worsening of her hyperglycemia but she has been asymptomatic. She has been tolerating her diet. The patient also had a CT exam which showed mild pulmonary emboli. The patient has denied any pain. No shortness of breath. She says that she feels pretty good today. Functional Status: Reports: Pain Controlled, Tolerating Diet, New Symptoms (Hyperglycemia) - Review of Systems General: Reports: No Symptoms HEENT: Reports: No Symptoms Pulmonary: Reports: No Symptoms Cardiovascular: Reports: No Symptoms Gastrointestinal: Reports: No Symptoms Genitourinary: Reports: No Symptoms Musculoskeletal: Reports: No Symptoms Skin: Reports: No Symptoms Neurological: Reports: No Symptoms Psychiatric: Reports: No Symptoms - Patient Data Vitals - Most Recent: Last Vital Signs Temp 36.1 C 12/24/20 04:01 Pulse 73 12/24/20 04:01 Resp 18 12/24/20 04:01 BP 126/60 12/24/20 04:01 Pulse Ox 91 L 12/24/20 04:02 Weight - Most Recent: 92.215 kg I&O - Last 24 Hours: Intake & Output 12/23/20 12/24/20 12/24/20 22:59 06:59 14:59 Intake Total 1240 850 Output Total 650 650 Balance 590 200 Lab Results Last 24 Hours: Laboratory Results - last 24 hr 12/23/20 12/23/20 12/23/20 Range/Units 11:10 13:17 16:20 WBC (3.98-10.04) K/mm3 RBC (3.98-5.22) M/mm3 Hgb (11.2-15.7) gm/dl Hct (34.1-44.9) % MCV (79.4-94.8) fl MCH (25.6-32.2) pg MCHC (32.2-35.5) g/dl RDW Std Deviation (36.4-46.3) fL Plt Count (182-369) K/mm3 MPV (9.4-12.3) fl Neut % (Auto) (34.0-71.1) % Lymph % (Auto) (19.3-51.7) % [place] % (Auto) (4.7-12.5) % Eos % (Auto) (0.7-5.8) Baso % (Auto) (0.1-1.2) % Neut # (Auto) (1.56-6.13) K/mm3 Lymph # (Auto) (1.18-3.74) K/mm3 [place] # (Auto) (0.24-0.36) K/mm3 Eos # (Auto) (0.04-0.36) K/mm3 Baso # (Auto) (0.01-0.08) K/mm3 Manual Slide Review Sodium (136-145) mEq/L Potassium (3.5-5.1) mEq/L Chloride (98-107) mEq/L Carbon Dioxide (21-32) mEq/L Anion Gap (5-15) BUN (7-18) mg/dL Creatinine (0.55-1.02) mg/dL Est Cr Clr Drug Dosing mL/min Estimated GFR (MDRD) (>60) mL/min BUN/Creatinine Ratio (14-18) Glucose (70-99) mg/dL POC Glucose 459 H* 416 H* 347 H (70-99) mg/dL Calcium (8.5-10.1) mg/dL Total Bilirubin (0.2-1.0) mg/dL AST (15-37) U/L ALT (14-59) U/L Alkaline Phosphatase (46-116) U/L C-Reactive Protein (<1.0) mg/dL Total Protein (6.4-8.2) g/dl Albumin (3.4-5.0) g/dl Globulin gm/dL Albumin/Globulin Ratio (1-2) 12/23/20 12/24/20 12/24/20 Range/Units 22:54 05:10 05:10 WBC 8.93 (3.98-10.04) K/mm3 RBC 3.86 L (3.98-5.22) M/mm3 Hgb 11.0 L (11.2-15.7) gm/dl Hct 36.2 (34.1-44.9) % MCV 93.8 (79.4-94.8) fl MCH 28.5 (25.6-32.2) pg MCHC 30.4 L (32.2-35.5) g/dl RDW Std Deviation 47.4 H (36.4-46.3) fL Plt Count 186 (182-369) K/mm3 MPV 10.4 (9.4-12.3) fl Neut % (Auto) 90.6 H (34.0-71.1) % Lymph % (Auto) 5.0 L (19.3-51.7) % [place] % (Auto) 3.0 L (4.7-12.5) % Eos % (Auto) 0 L (0.7-5.8) Baso % (Auto) 0.1 (0.1-1.2) % Neut # (Auto) 8.08 H (1.56-6.13) K/mm3 Lymph # (Auto) 0.45 L (1.18-3.74) K/mm3 [place] # (Auto) 0.27 (0.24-0.36) K/mm3 Eos # (Auto) 0.00 L (0.04-0.36) K/mm3 Baso # (Auto) 0.01 (0.01-0.08) K/mm3 Manual Slide Review Abnormal smear Sodium 137 (136-145) mEq/L Potassium 4.8 (3.5-5.1) mEq/L Chloride 107 (98-107) mEq/L Carbon Dioxide 15 L (21-32) mEq/L Anion Gap 19.8 H (5-15) BUN 37 H (7-18) mg/dL Creatinine 2.0 H (0.55-1.02) mg/dL Est Cr Clr Drug Dosing 20.60 mL/min Estimated GFR (MDRD) 25 (>60) mL/min BUN/Creatinine Ratio 18.5 H (14-18) Glucose 436 H* (70-99) mg/dL POC Glucose 317 H (70-99) mg/dL Calcium 7.8 L (8.5-10.1) mg/dL Total Bilirubin 0.3 (0.2-1.0) mg/dL AST 30 (15-37) U/L ALT 27 (14-59) U/L Alkaline Phosphatase 55 (46-116) U/L C-Reactive Protein 3.6 H* (<1.0) mg/dL Total Protein 6.0 L (6.4-8.2) g/dl Albumin 2.1 L (3.4-5.0) g/dl Globulin 3.9 gm/dL Albumin/Globulin Ratio 0.5 L (1-2) Lasha Results Last 24 Hours: Microbiology 12/21/20 10:30 Blood Culture - Preliminary Blood - Venous - Lab Draw 12/21/20 10:22 Blood Culture - Preliminary Blood - Venous Med Orders - Current: Current Medications Acetaminophen (Acetaminophen 325 Mg Tab) 650 mg PO Q4H PRN PRN Reason: Pain (Mild 1-3)/fever Last Admin: 12/23/20 16:21 Dose: 650 mg Documented by: Albuterol (Albuterol 0.083% 2.5 Mg/3 Ml Neb Soln) 2.5 mg NEB Q2H PRN PRN Reason: Shortness Of Breath/wheezing Albuterol/Ipratropium (Albuterol/Ipratropium 3.0-0.5 Mg/3 Ml Neb Soln) 3 ml NEB Q4H PRN PRN Reason: Shortness Of Breath/wheezing Apixaban (Apixaban 5 Mg Tab) 10 mg PO BID [facility] Last Admin: 12/23/20 21:28 Dose: 10 mg Documented by: Atorvastatin Calcium (Atorvastatin 40 Mg Tab) 80 mg PO BEDTIME [facility] Last Admin: 12/23/20 21:25 Dose: 80 mg Documented by: Dexamethasone (Dexamethasone 4 Mg Tab) 6 mg PO BEDTIME [facility] Stop: 12/30/20 21:01 Last Admin: 12/23/20 21:33 Dose: 6 mg Documented by: Ceftriaxone Sodium 2 gm/ (Sodium Chloride) 100 mls @ 200 mls/hr IV Q24H [facility] Last Admin: 12/23/20 21:28 Dose: 200 mls/hr Documented by: Insulin Glargine (Insulin Glargine,Hum.Rec.Anlog 100 Unit/Ml 3 Ml Pen) 25 unit SUBCUT DAILY [facility] Insulin Human Lispro (Insulin Lispro 100 Unit/Ml 3 Ml Kwikpen) 0 unit SUBCUT QIDACANDBED [facility]; Protocol Last Admin: 12/24/20 07:03 Dose: 20 unit Documented by: Levothyroxine Sodium (Levothyroxine 112 Mcg Tab) 112 mcg PO ACBREAKFAST [facility] Last Admin: 12/24/20 07:04 Dose: 112 mcg Documented by: Ondansetron HCl (Ondansetron 4 Mg/2 Ml Sdv) 4 mg IV Q6H PRN PRN Reason: Nausea/Vomiting Pantoprazole Sodium (Pantoprazole 40 Mg Tab.Cr) 40 mg PO DAILY [facility] Last Admin: 12/23/20 09:11 Dose: 40 mg Documented by: Discontinued Medications Dexamethasone (Dexamethasone 4 Mg Tab) 6 mg PO ONETIME STA Stop: 12/22/20 00:34 Last Admin: 12/22/20 00:58 Dose: 6 mg Documented by: Dexamethasone (Dexamethasone 4 Mg Tab) 6 mg PO DAILY [facility] Stop: 12/30/20 09:01 Last Admin: 12/22/20 09:28 Dose: Not Given Documented by: Enoxaparin Sodium (Enoxaparin 100 Mg/1 Ml Syringe) 95 mg SUBCUT ONETIME STA Stop: 12/22/20 00:33 Last Admin: 12/22/20 00:58 Dose: 95 mg Documented by: Enoxaparin Sodium (Enoxaparin 100 Mg/1 Ml Syringe) 90 mg SUBCUT Q24H [facility] Sodium Chloride (Normal Saline) 1,000 mls @ 150 mls/hr IV ASDIRECTED [facility] Last Admin: 12/22/20 06:05 Dose: 150 mls/hr Documented by: Ceftriaxone Sodium 2 gm/ (Sodium Chloride) 100 mls @ 200 mls/hr IV ONETIME STA Stop: 12/21/20 23:53 Last Admin: 12/21/20 23:56 Dose: 200 mls/hr Documented by: Insulin Glargine (Insulin Glargine,Hum.Rec.Anlog 100 Unit/Ml 3 Ml Pen) 16 unit SUBCUT DAILY [facility] Last Admin: 12/23/20 09:11 Dose: 16 unit Documented by: - Exam Quality Assessment: Supplemental Oxygen, DVT Prophylaxis General: Alert, Oriented, Cooperative, No Acute Distress HEENT: Pupils Equal, Pupils Reactive, EOMI, Mucous Membr. Moist/Wink Neck: Supple, Trachea Midline Lungs: Clear to Auscultation, Normal Respiratory Effort Cardiovascular: Regular Rate, Regular Rhythm GI/Abdominal Exam: Normal Bowel Sounds, Soft, Non-Tender, No Distention (Female) Exam: Deferred Back Exam: Normal Inspection, Full Range of Motion Extremities: Normal Inspection, Normal Range of Motion, No Pedal Edema Skin: Warm, Dry, Intact Neurological: No New Focal Deficit, Normal Speech Psy/Mental Status: Alert, Normal Affect - Patient Data Lab Results Last 24 hrs: Laboratory Results - last 24 hr 12/23/20 12/23/20 12/23/20 Range/Units 11:10 13:17 16:20 WBC (3.98-10.04) K/mm3 RBC (3.98-5.22) M/mm3 Hgb (11.2-15.7) gm/dl Hct (34.1-44.9) % MCV (79.4-94.8) fl MCH (25.6-32.2) pg MCHC (32.2-35.5) g/dl RDW Std Deviation (36.4-46.3) fL Plt Count (182-369) K/mm3 MPV (9.4-12.3) fl Neut % (Auto) (34.0-71.1) % Lymph % (Auto) (19.3-51.7) % [place] % (Auto) (4.7-12.5) % Eos % (Auto) (0.7-5.8) Baso % (Auto) (0.1-1.2) % Neut # (Auto) (1.56-6.13) K/mm3 Lymph # (Auto) (1.18-3.74) K/mm3 [place] # (Auto) (0.24-0.36) K/mm3 Eos # (Auto) (0.04-0.36) K/mm3 Baso # (Auto) (0.01-0.08) K/mm3 Manual Slide Review Sodium (136-145) mEq/L Potassium (3.5-5.1) mEq/L Chloride (98-107) mEq/L Carbon Dioxide (21-32) mEq/L Anion Gap (5-15) BUN (7-18) mg/dL Creatinine (0.55-1.02) mg/dL Est Cr Clr Drug Dosing mL/min Estimated GFR (MDRD) (>60) mL/min BUN/Creatinine Ratio (14-18) Glucose (70-99) mg/dL POC Glucose 459 H* 416 H* 347 H (70-99) mg/dL Calcium (8.5-10.1) mg/dL Total Bilirubin (0.2-1.0) mg/dL AST (15-37) U/L ALT (14-59) U/L Alkaline Phosphatase (46-116) U/L C-Reactive Protein (<1.0) mg/dL Total Protein (6.4-8.2) g/dl Albumin (3.4-5.0) g/dl Globulin gm/dL Albumin/Globulin Ratio (1-2) 12/23/20 12/24/20 12/24/20 Range/Units 22:54 05:10 05:10 WBC 8.93 (3.98-10.04) K/mm3 RBC 3.86 L (3.98-5.22) M/mm3 Hgb 11.0 L (11.2-15.7) gm/dl Hct 36.2 (34.1-44.9) % MCV 93.8 (79.4-94.8) fl MCH 28.5 (25.6-32.2) pg MCHC 30.4 L (32.2-35.5) g/dl RDW Std Deviation 47.4 H (36.4-46.3) fL Plt Count 186 (182-369) K/mm3 MPV 10.4 (9.4-12.3) fl Neut % (Auto) 90.6 H (34.0-71.1) % Lymph % (Auto) 5.0 L (19.3-51.7) % [place] % (Auto) 3.0 L (4.7-12.5) % Eos % (Auto) 0 L (0.7-5.8) Baso % (Auto) 0.1 (0.1-1.2) % Neut # (Auto) 8.08 H (1.56-6.13) K/mm3 Lymph # (Auto) 0.45 L (1.18-3.74) K/mm3 [place] # (Auto) 0.27 (0.24-0.36) K/mm3 Eos # (Auto) 0.00 L (0.04-0.36) K/mm3 Baso # (Auto) 0.01 (0.01-0.08) K/mm3 Manual Slide Review Abnormal smear Sodium 137 (136-145) mEq/L Potassium 4.8 (3.5-5.1) mEq/L Chloride 107 (98-107) mEq/L Carbon Dioxide 15 L (21-32) mEq/L Anion Gap 19.8 H (5-15) BUN 37 H (7-18) mg/dL Creatinine 2.0 H (0.55-1.02) mg/dL Est Cr Clr Drug Dosing 20.60 mL/min Estimated GFR (MDRD) 25 (>60) mL/min BUN/Creatinine Ratio 18.5 H (14-18) Glucose 436 H* (70-99) mg/dL POC Glucose 317 H (70-99) mg/dL Calcium 7.8 L (8.5-10.1) mg/dL Total Bilirubin 0.3 (0.2-1.0) mg/dL AST 30 (15-37) U/L ALT 27 (14-59) U/L Alkaline Phosphatase 55 (46-116) U/L C-Reactive Protein 3.6 H* (<1.0) mg/dL Total Protein 6.0 L (6.4-8.2) g/dl Albumin 2.1 L (3.4-5.0) g/dl Globulin 3.9 gm/dL Albumin/Globulin Ratio 0.5 L (1-2) Result Diagrams: 12/24/20 05:10 12/24/20 05:10 Lasha Results Last 24 hrs: Microbiology 12/21/20 10:30 Blood Culture - Preliminary Blood - Venous - Lab Draw 12/21/20 10:22 Blood Culture - Preliminary Blood - Venous Sepsis Event Note - Evaluation Sepsis Screening Result: No Definite Risk - Focused Exam Vital Signs: Vital Signs Temp Pulse Resp BP Pulse Ox 12/24/20 04:02 91 L 12/24/20 04:01 36.1 C 73 18 126/60 85 L 12/24/20 00:13 36.2 C 66 16 110/85 94 L 12/23/20 21:00 91 L - Problem List & Annotations (1) Acute respiratory failure due to COVID-19 SNOMED Code(s): 741982519 Code(s): U07.1 - COVID-19; J96.00 - ACUTE RESPIRATORY FAILURE, UNSP W HYPOXIA OR HYPERCAPNIA Status: Acute Current Visit: Yes (2) Diabetes SNOMED Code(s): 47844568 Code(s): E11.9 - TYPE 2 DIABETES MELLITUS WITHOUT COMPLICATIONS Status: Acute Priority: High Current Visit: Yes Qualifiers: Diabetes mellitus type: other specified (including KATHE) Diabetes mellitus detention insulin use: with manager intermediate use Diabetes mellitus complication status: with kidney complications Diabetes mellitus complication detail: with chronic kidney disease Chronic kidney disease stage: stage 4 (severe) [place] lified Code(s): 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; N18.4 - Chronic kidney disease, stage 4 (severe); Z79.4 - FDC (current) use of insulin (3) Pneumonia due to 2019 novel coronavirus SNOMED Code(s): 794101479164811339 Code(s): U07.1 - COVID-19; J12.82 - PNEUMONIA DUE TO CORONAVIRUS DISEASE 2019 Status: Acute Current Visit: No (4) Chronic renal insufficiency SNOMED Code(s): 927065428 Code(s): N18.9 - CHRONIC KIDNEY DISEASE, UNSPECIFIED Status: Acute Priority: High Current Visit: Yes Qualifiers: Chronic kidney disease stage: stage 4 (severe) Qualified Code(s): N18.4 - Chronic kidney disease, stage 4 (severe) - Problem List Review Problem List Initiated/Reviewed/Updated: Yes - My Orders Last 24 Hours: My Active Orders 12/24/20 09:00 Insulin Glargine,Hum.Rec.Anlog [Semglee Pen] 25 unit SUBCUT DAILY - Plan Plan:: 65-year-old female with Covid pneumonia presents to emergency department with worsening shortness of breath and oxygenation secondary to new onset pulmonary embolism. COVID-19 pneumonia Segmental and subsegmental bilateral pulmonary emboli * CTA confirmed COVID-19 pneumonia and pulmonary emboli * Severe hypoxemia in emergency department with SPO2 of 77% on 3 L * Requiring 15 L nonrebreather to keep oxygen saturations in the low 90s * Started on therapeutic dose Lovenox in the emergency department Poorly controlled insulin-dependent diabetes mellitus. Obesity * Hemoglobin A1c 8.5 * Home dose of insulin: Patient relayed to me that she was on 20 units of a once a day on acting insulin and a sliding scale fast acting insulin. Her medication list on reconciliation had only Trulicity and NovoLog. * Increases likelihood of bad outcome with COVID-19 pneumonia Acute on chronic renal insufficiency. * Review of available creatinine levels shows a creatinine of 2.5 on 12/11/2020 and 1.8 on 09/11/2020 * On lisinopril at home Other medical problems include hyperlipidemia, hypertension, hypothyroidism, and GERD Plan * Admit to medical floor, patient is in ICU for overflow * Continue full dose Lovenox 1 mg/kg every 12 hours renally adjusted. * Dexamethasone 6 mg p.o. daily * Patient is out of the window for benefit from remdesivir. * FiO2 to keep SPO2 greater than 87 % * Sliding scale insulin * Lantus 16 units daily. * Bedside blood sugar check 4 times daily * Get procalcitonin * CBC, CMP, mag, CRP daily * Patient will need a switch from Lovenox to oral medication. We will start her on Eliquis in the morning. Eliquis 10 mg twice daily for 7 days then 5 mg twice daily after that. * Reconcile home meds * Renally adjust medications * CODE STATUS: Full code 12/23/2020 The patient is a 65-year-old lady who is doing somewhat better today. Her oxygen will continue to keep her saturations around 90 to 92%. The patient also has a history of chronic kidney disease likely related to her diabetes and her medications will be renally dosed. The patient be kept on a diabetic diet as tolerated. I have also increased the patient's Lantus due to her hypoglycemic episodes. The patient is currently anticoagulated on Eliquis secondary to her pulmonary emboli from COVID-19. She is on ceftriaxone 2 g daily and this will continue. Repeat laboratory studies have been ordered for the morning. The patient has been encouraged to ambulate. She should be appropriate for discharge once her oxygen demands have improved and she is back at her baseline. Physical therapy is also been ordered for the patient. 12/24/2020 The patient is a 65-year-old lady who says that she is feeling better today. The patient's oxygen saturations will be continue to monitor and kept around 90 to 92%. Also she has had severe hyperglycemic excursions and as a result of this I have increased the patient's Lantus from 25 units to 35 units and I have discontinued the steroid use for now. The patient is to continue with her carb constant diet. We will also continue the patient's sliding scale insulin and blood glucose checks. The patient is on ceftriaxone 2 g daily and this will continue for the next few days. Patient has been encouraged to ambulate. Also because of the pulmonary emboli she is kept on apixaban and likely will need to have this on discharge. Repeat laboratory studies have been ordered.
[2020-12-24] MEDS ORDERED: Insulin Glargine,Hum.Rec.Anlog 100 UNIT/ML 3 ML Pen SUBCUT SCH (09:00)
[2020-12-24] MEDS: Apixaban 5 MG Tab PO SCH ×2 (09:37→21:48)
[2020-12-24] MEDS: Pantoprazole 40 MG Tab.CR PO SCH (09:38)
[2020-12-24] MEDS: atorvaSTATin 40 MG Tab PO SCH (21:48)
[2020-12-24] MEDS: cefTRIAXone 2 GM in Sodium Chloride 0.9% 100 ML IV SCH (21:54)
[2020-12-25] MEDS: Levothyroxine 112 MCG Tab PO SCH (06:50)
[2020-12-25] MEDS: Insulin Lispro 100 Unit/ML 3 ML KwikPen SUBCUT SCH ×4 (09:44→22:07)
[2020-12-25] MEDS: Insulin Glargine,Hum.Rec.Anlog 100 UNIT/ML 3 ML Pen SUBCUT SCH (09:46)
[2020-12-25] MEDS: Apixaban 5 MG Tab PO SCH ×2 (09:47→22:03)
[2020-12-25] MEDS: Pantoprazole 40 MG Tab.CR PO SCH (09:47)
--- NOTE | 2020-12-25 13:24 | PCM.PN ---
<Fuller,DeAnn M - Last Filed: 12/25/20 13:18> - General Info Date of Service: 12/25/20 Admission Dx/Problem (Free Text): Admission Diagnosis/Problem Admission Diagnosis/Problem Hypoxia Subjective Update: Salbador seen on rounds this morning and states that she feels she is doing better. She does complain of some shortness of breath when ambulating in the torres with physical therapy however she denies any shortness of breath or dizziness with ambulation around her room. Continues on oxygen at 3 L per nasal cannula with O2 saturations 92 to 95%. Functional Status: Reports: Pain Controlled - Review of Systems General: Reports: No Symptoms HEENT: Reports: No Symptoms Pulmonary: Reports: Shortness of Breath (With ambulation in the halls), Cough (Occasional nonproductive) Cardiovascular: Reports: No Symptoms Gastrointestinal: Reports: Diarrhea Genitourinary: Reports: No Symptoms Musculoskeletal: Reports: No Symptoms Skin: Reports: No Symptoms Neurological: Reports: No Symptoms Psychiatric: Reports: No Symptoms - Patient Data Vitals - Most Recent: Last Vital Signs Temp 98.1 F 12/25/20 08:00 Pulse 80 12/25/20 08:00 Resp 19 12/25/20 08:00 BP 113/61 12/25/20 08:00 Pulse Ox 90 L 12/25/20 08:00 Weight - Most Recent: 90.764 kg I&O - Last 24 Hours: Intake & Output 12/24/20 12/25/20 12/25/20 22:59 06:59 14:59 Intake Total 850 450 120 Output Total 900 650 Balance -50 -200 120 Lab Results Last 24 Hours: Laboratory Results - last 24 hr 12/24/20 12/24/20 12/25/20 Range/Units 16:51 21:15 05:40 WBC 10.30 H (3.98-10.04) K/mm3 RBC 4.10 (3.98-5.22) M/mm3 Hgb 11.5 (11.2-15.7) gm/dl Hct 37.4 (34.1-44.9) % MCV 91.2 (79.4-94.8) fl MCH 28.0 (25.6-32.2) pg MCHC 30.7 L (32.2-35.5) g/dl RDW Std Deviation 47.0 H (36.4-46.3) fL Plt Count 202 (182-369) K/mm3 MPV 10.8 (9.4-12.3) fl Neut % (Auto) 74.7 H (34.0-71.1) % Lymph % (Auto) 10.0 L (19.3-51.7) % Brewster % (Auto) 12.3 (4.7-12.5) % Eos % (Auto) 1.1 (0.7-5.8) Baso % (Auto) 0.2 (0.1-1.2) % Neut # (Auto) 7.70 H (1.56-6.13) K/mm3 Lymph # (Auto) 1.03 L (1.18-3.74) K/mm3 Brewster # (Auto) 1.27 H (0.24-0.36) K/mm3 Eos # (Auto) 0.11 (0.04-0.36) K/mm3 Baso # (Auto) 0.02 (0.01-0.08) K/mm3 Sodium (136-145) mEq/L Potassium (3.5-5.1) mEq/L Chloride (98-107) mEq/L Carbon Dioxide (21-32) mEq/L Anion Gap (5-15) BUN (7-18) mg/dL Creatinine (0.55-1.02) mg/dL Est Cr Clr Drug Dosing mL/min Estimated GFR (MDRD) (>60) mL/min BUN/Creatinine Ratio (14-18) Glucose (70-99) mg/dL POC Glucose 368 H 329 H (70-99) mg/dL Calcium (8.5-10.1) mg/dL Magnesium (1.8-2.4) mg/dL Total Bilirubin (0.2-1.0) mg/dL AST (15-37) U/L ALT (14-59) U/L Alkaline Phosphatase (46-116) U/L Total Protein (6.4-8.2) g/dl Albumin (3.4-5.0) g/dl Globulin gm/dL Albumin/Globulin Ratio (1-2) 12/25/20 12/25/20 12/25/20 Range/Units 05:40 06:48 11:14 WBC (3.98-10.04) K/mm3 RBC (3.98-5.22) M/mm3 Hgb (11.2-15.7) gm/dl Hct (34.1-44.9) % MCV (79.4-94.8) fl MCH (25.6-32.2) pg MCHC (32.2-35.5) g/dl RDW Std Deviation (36.4-46.3) fL Plt Count (182-369) K/mm3 MPV (9.4-12.3) fl Neut % (Auto) (34.0-71.1) % Lymph % (Auto) (19.3-51.7) % Brewster % (Auto) (4.7-12.5) % Eos % (Auto) (0.7-5.8) Baso % (Auto) (0.1-1.2) % Neut # (Auto) (1.56-6.13) K/mm3 Lymph # (Auto) (1.18-3.74) K/mm3 Brewster # (Auto) (0.24-0.36) K/mm3 Eos # (Auto) (0.04-0.36) K/mm3 Baso # (Auto) (0.01-0.08) K/mm3 Sodium 139 (136-145) mEq/L Potassium 3.9 (3.5-5.1) mEq/L Chloride 109 H (98-107) mEq/L Carbon Dioxide 21 (21-32) mEq/L Anion Gap 12.9 (5-15) BUN 35 H (7-18) mg/dL Creatinine 1.9 H (0.55-1.02) mg/dL Est Cr Clr Drug Dosing 21.68 mL/min Estimated GFR (MDRD) 26 (>60) mL/min BUN/Creatinine Ratio 18.4 H (14-18) Glucose 291 H (70-99) mg/dL POC Glucose 236 H 277 H (70-99) mg/dL Calcium 7.9 L (8.5-10.1) mg/dL Magnesium 2.2 (1.8-2.4) mg/dL Total Bilirubin 0.3 (0.2-1.0) mg/dL AST 32 (15-37) U/L ALT 33 (14-59) U/L Alkaline Phosphatase 59 (46-116) U/L Total Protein 5.8 L (6.4-8.2) g/dl Albumin 2.1 L (3.4-5.0) g/dl Globulin 3.7 gm/dL Albumin/Globulin Ratio 0.6 L (1-2) Med Orders - Current: Current Medications Acetaminophen (Acetaminophen 325 Mg Tab) 650 mg PO Q4H PRN PRN Reason: Pain (Mild 1-3)/fever Last Admin: 12/23/20 16:21 Dose: 650 mg Documented by: Albuterol (Albuterol 0.083% 2.5 Mg/3 Ml Neb Soln) 2.5 mg NEB Q2H PRN PRN Reason: Shortness Of Breath/wheezing Albuterol/Ipratropium (Albuterol/Ipratropium 3.0-0.5 Mg/3 Ml Neb Soln) 3 ml NEB Q4H PRN PRN Reason: Shortness Of Breath/wheezing Apixaban (Apixaban 5 Mg Tab) 10 mg PO BID [facility] Stop: 12/29/20 09:01 Last Admin: 12/25/20 09:47 Dose: 10 mg Documented by: Atorvastatin Calcium (Atorvastatin 40 Mg Tab) 80 mg PO BEDTIME [facility] Last Admin: 12/24/20 21:48 Dose: 80 mg Documented by: Ceftriaxone Sodium 2 gm/ (Sodium Chloride) 100 mls @ 200 mls/hr IV Q24H [facility] Last Admin: 12/24/20 21:54 Dose: 200 mls/hr Documented by: Insulin Glargine (Insulin Glargine,Hum.Rec.Anlog 100 Unit/Ml 3 Ml Pen) 35 unit SUBCUT DAILY [facility] Last Admin: 12/25/20 09:46 Dose: 35 units Documented by: Insulin Human Lispro (Insulin Lispro 100 Unit/Ml 3 Ml Kwikpen) 0 unit SUBCUT QIDACANDBED [facility]; Protocol Last Admin: 12/25/20 13:07 Dose: 6 unit Documented by: Levothyroxine Sodium (Levothyroxine 112 Mcg Tab) 112 mcg PO ACBREAKFAST [facility] Last Admin: 12/25/20 06:50 Dose: 112 mcg Documented by: Ondansetron HCl (Ondansetron 4 Mg/2 Ml Sdv) 4 mg IV Q6H PRN PRN Reason: Nausea/Vomiting Pantoprazole Sodium (Pantoprazole 40 Mg Tab.Cr) 40 mg PO DAILY [facility] Last Admin: 12/25/20 09:47 Dose: 40 mg Documented by: Discontinued Medications Dexamethasone (Dexamethasone 4 Mg Tab) 6 mg PO ONETIME STA Stop: 12/22/20 00:34 Last Admin: 12/22/20 00:58 Dose: 6 mg Documented by: Dexamethasone (Dexamethasone 4 Mg Tab) 6 mg PO DAILY [facility] Stop: 12/30/20 09:01 Last Admin: 12/22/20 09:28 Dose: Not Given Documented by: Dexamethasone (Dexamethasone 4 Mg Tab) 6 mg PO BEDTIME [facility] Stop: 12/30/20 21:01 Last Admin: 12/23/20 21:33 Dose: 6 mg Documented by: Enoxaparin Sodium (Enoxaparin 100 Mg/1 Ml Syringe) 95 mg SUBCUT ONETIME STA Stop: 12/22/20 00:33 Last Admin: 12/22/20 00:58 Dose: 95 mg Documented by: Enoxaparin Sodium (Enoxaparin 100 Mg/1 Ml Syringe) 90 mg SUBCUT Q24H [facility] Sodium Chloride (Normal Saline) 1,000 mls @ 150 mls/hr IV ASDIRECTED [facility] Last Admin: 12/22/20 06:05 Dose: 150 mls/hr Documented by: Ceftriaxone Sodium 2 gm/ (Sodium Chloride) 100 mls @ 200 mls/hr IV ONETIME STA Stop: 12/21/20 23:53 Last Admin: 12/21/20 23:56 Dose: 200 mls/hr Documented by: Insulin Glargine (Insulin Glargine,Hum.Rec.Anlog 100 Unit/Ml 3 Ml Pen) 16 unit SUBCUT DAILY [facility] Last Admin: 12/23/20 09:11 Dose: 16 unit Documented by: Insulin Glargine (Insulin Glargine,Hum.Rec.Anlog 100 Unit/Ml 3 Ml Pen) 25 unit SUBCUT DAILY [facility] Last Admin: 12/24/20 09:39 Dose: 25 units Documented by: - Exam Quality Assessment: Supplemental Oxygen (3 L per nasal cannula), DVT Prophylaxis (Eliquis) General: Alert, Oriented, Cooperative HEENT: Pupils Equal, Mucous Membr. Moist/[place] Neck: Supple, Trachea Midline Lungs: Decreased Breath Sounds, Crackles (Fine crackles noted to right posterior lobe) Cardiovascular: Regular Rate, Regular Rhythm, No Murmurs GI/Abdominal Exam: Normal Bowel Sounds, Soft, Non-Tender, No Distention (Female) Exam: Deferred Back Exam: Normal Inspection Extremities: Normal Inspection, Normal Range of Motion, Non-Tender, No Pedal Edema, Normal Capillary Refill Peripheral Pulses: 2+: Radial (L), Radial (R) Skin: Warm, Dry, Intact Neurological: No New Focal Deficit Psy/Mental Status: Alert, Normal Affect, Normal Mood - Patient Data Lab Results Last 24 hrs: Laboratory Results - last 24 hr 12/24/20 12/24/20 12/25/20 Range/Units 16:51 21:15 05:40 WBC 10.30 H (3.98-10.04) K/mm3 RBC 4.10 (3.98-5.22) M/mm3 Hgb 11.5 (11.2-15.7) gm/dl Hct 37.4 (34.1-44.9) % MCV 91.2 (79.4-94.8) fl MCH 28.0 (25.6-32.2) pg MCHC 30.7 L (32.2-35.5) g/dl RDW Std Deviation 47.0 H (36.4-46.3) fL Plt Count 202 (182-369) K/mm3 MPV 10.8 (9.4-12.3) fl Neut % (Auto) 74.7 H (34.0-71.1) % Lymph % (Auto) 10.0 L (19.3-51.7) % Brewster % (Auto) 12.3 (4.7-12.5) % Eos % (Auto) 1.1 (0.7-5.8) Baso % (Auto) 0.2 (0.1-1.2) % Neut # (Auto) 7.70 H (1.56-6.13) K/mm3 Lymph # (Auto) 1.03 L (1.18-3.74) K/mm3 Brewster # (Auto) 1.27 H (0.24-0.36) K/mm3 Eos # (Auto) 0.11 (0.04-0.36) K/mm3 Baso # (Auto) 0.02 (0.01-0.08) K/mm3 Sodium (136-145) mEq/L Potassium (3.5-5.1) mEq/L Chloride (98-107) mEq/L Carbon Dioxide (21-32) mEq/L Anion Gap (5-15) BUN (7-18) mg/dL Creatinine (0.55-1.02) mg/dL Est Cr Clr Drug Dosing mL/min Estimated GFR (MDRD) (>60) mL/min BUN/Creatinine Ratio (14-18) Glucose (70-99) mg/dL POC Glucose 368 H 329 H (70-99) mg/dL Calcium (8.5-10.1) mg/dL Magnesium (1.8-2.4) mg/dL Total Bilirubin (0.2-1.0) mg/dL AST (15-37) U/L ALT (14-59) U/L Alkaline Phosphatase (46-116) U/L Total Protein (6.4-8.2) g/dl Albumin (3.4-5.0) g/dl Globulin gm/dL Albumin/Globulin Ratio (1-2) 12/25/20 12/25/20 12/25/20 Range/Units 05:40 06:48 11:14 WBC (3.98-10.04) K/mm3 RBC (3.98-5.22) M/mm3 Hgb (11.2-15.7) gm/dl Hct (34.1-44.9) % MCV (79.4-94.8) fl MCH (25.6-32.2) pg MCHC (32.2-35.5) g/dl RDW Std Deviation (36.4-46.3) fL Plt Count (182-369) K/mm3 MPV (9.4-12.3) fl Neut % (Auto) (34.0-71.1) % Lymph % (Auto) (19.3-51.7) % Brewster % (Auto) (4.7-12.5) % Eos % (Auto) (0.7-5.8) Baso % (Auto) (0.1-1.2) % Neut # (Auto) (1.56-6.13) K/mm3 Lymph # (Auto) (1.18-3.74) K/mm3 Brewster # (Auto) (0.24-0.36) K/mm3 Eos # (Auto) (0.04-0.36) K/mm3 Baso # (Auto) (0.01-0.08) K/mm3 Sodium 139 (136-145) mEq/L Potassium 3.9 (3.5-5.1) mEq/L Chloride 109 H (98-107) mEq/L Carbon Dioxide 21 (21-32) mEq/L Anion Gap 12.9 (5-15) BUN 35 H (7-18) mg/dL Creatinine 1.9 H (0.55-1.02) mg/dL Est Cr Clr Drug Dosing 21.68 mL/min Estimated GFR (MDRD) 26 (>60) mL/min BUN/Creatinine Ratio 18.4 H (14-18) Glucose 291 H (70-99) mg/dL POC Glucose 236 H 277 H (70-99) mg/dL Calcium 7.9 L (8.5-10.1) mg/dL Magnesium 2.2 (1.8-2.4) mg/dL Total Bilirubin 0.3 (0.2-1.0) mg/dL AST 32 (15-37) U/L ALT 33 (14-59) U/L Alkaline Phosphatase 59 (46-116) U/L Total Protein 5.8 L (6.4-8.2) g/dl Albumin 2.1 L (3.4-5.0) g/dl Globulin 3.7 gm/dL Albumin/Globulin Ratio 0.6 L (1-2) Result Diagrams: 12/25/20 05:40 12/25/20 05:40 Sepsis Event Note - Evaluation Sepsis Screening Result: No Definite Risk - Focused Exam Vital Signs: Vital Signs Temp Temp Pulse Pulse Resp BP BP 12/25/20 08:00 98.1 F 80 19 113/61 12/25/20 07:51 12/25/20 06:03 12/25/20 04:39 98.2 F 68 13 114/88 Pulse Ox Pulse Ox 12/25/20 08:00 90 L 12/25/20 07:51 92 L 12/25/20 06:03 95 12/25/20 04:39 88 L - Problem List & Annotations (1) Acute respiratory failure due to COVID-19 SNOMED Code(s): 193065988 Code(s): U07.1 - COVID-19; J96.00 - ACUTE RESPIRATORY FAILURE, UNSP W HYPOXIA OR HYPERCAPNIA Status: Acute Priority: High Current Visit: Yes (2) Chronic renal insufficiency SNOMED Code(s): 103504716 Code(s): N18.9 - CHRONIC KIDNEY DISEASE, UNSPECIFIED Status: Acute Priority: High Current Visit: Yes Qualifiers: Chronic kidney disease stage: stage 4 (severe) Qualified Code(s): N18.4 - Chronic kidney disease, stage 4 (severe) (3) Diabetes SNOMED Code(s): 41637196 Code(s): E11.9 - TYPE 2 DIABETES MELLITUS WITHOUT COMPLICATIONS Status: Acute Priority: High Current Visit: Yes Qualifiers: Diabetes mellitus type: other specified (including KATHE) Diabetes mellitus longterm insulin use: with longterm use Diabetes mellitus complication status: with kidney complications Diabetes mellitus complication detail: with chronic kidney disease Chronic kidney disease stage: stage 4 (severe) Qualified Code(s): 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; N18.4 - Chronic kidney disease, stage 4 (severe); Z79.4 - shelter (current) use of insulin (4) Pulmonary embolism associated with COVID-19 SNOMED Code(s): 749738204 Code(s): U07.1 - COVID-19; I26.99 - OTHER PULMONARY EMBOLISM WITHOUT ACUTE COR PULMONALE Status: Acute Priority: High Current Visit: Yes (5) Pneumonia due to 2019 novel coronavirus SNOMED Code(s): 946547274110351391 Code(s): U07.1 - COVID-19; J12.82 - PNEUMONIA DUE TO CORONAVIRUS DISEASE 2019 Status: Acute Current Visit: No - Problem List Review Problem List Initiated/Reviewed/Updated: Yes - Plan Plan:: 65-year-old female with Covid pneumonia presents to emergency department with worsening shortness of breath and oxygenation secondary to new onset pulmonary embolism. COVID-19 pneumonia Segmental and subsegmental bilateral pulmonary emboli * CTA confirmed COVID-19 pneumonia and pulmonary emboli * Severe hypoxemia in emergency department with SPO2 of 77% on 3 L * Requiring 15 L nonrebreather to keep oxygen saturations in the low 90s * Started on therapeutic dose Lovenox in the emergency department Poorly controlled insulin-dependent diabetes mellitus. Obesity * Hemoglobin A1c 8.5 * Home dose of insulin: Patient relayed to me that she was on 20 units of a once a day on acting insulin and a sliding scale fast acting insulin. Her medication list on reconciliation had only Trulicity and NovoLog. * Increases likelihood of bad outcome with COVID-19 pneumonia Acute on chronic renal insufficiency. * Review of available creatinine levels shows a creatinine of 2.5 on 12/11/2020 and 1.8 on 09/11/2020 * On lisinopril at home Other medical problems include hyperlipidemia, hypertension, hypothyroidism, and GERD Plan * Admit to medical floor, patient is in ICU for overflow * Continue full dose Lovenox 1 mg/kg every 12 hours renally adjusted. * Dexamethasone 6 mg p.o. daily * Patient is out of the window for benefit from remdesivir. * FiO2 to keep SPO2 greater than 87 % * Sliding scale insulin * Lantus 16 units daily. * Bedside blood sugar check 4 times daily * Get procalcitonin * CBC, CMP, mag, CRP daily * Patient will need a switch from Lovenox to oral medication. We will start her on Eliquis in the morning. Eliquis 10 mg twice daily for 7 days then 5 mg twice daily after that. * Reconcile home meds * Renally adjust medications * CODE STATUS: Full code 12/23/2020 The patient is a 65-year-old lady who is doing somewhat better today. Her oxygen will continue to keep her saturations around 90 to 92%. The patient also has a history of chronic kidney disease likely related to her diabetes and her medications will be renally dosed. The patient be kept on a diabetic diet as tolerated. I have also increased the patient's Lantus due to her hypoglycemic episodes. The patient is currently anticoagulated on Eliquis secondary to her pulmonary emboli from COVID-19. She is on ceftriaxone 2 g daily and this will continue. Repeat laboratory studies have been ordered for the morning. The patient has been encouraged to ambulate. She should be appropriate for discharge once her oxygen demands have improved and she is back at her baseline. Physical therapy is also been ordered for the patient. 12/24/2020 The patient is a 65-year-old lady who says that she is feeling better today. T he patient's oxygen saturations will be continue to monitor and kept around 90 to 92%. Also she has had severe hyperglycemic excursions and as a result of this I have increased the patient's Lantus from 25 units to 35 units and I have discontinued the steroid use for now. The patient is to continue with her carb constant diet. We will also continue the patient's sliding scale insulin and blood glucose checks. The patient is on ceftriaxone 2 g daily and this will continue for the next few days. Patient has been encouraged to ambulate. Also because of the pulmonary emboli she is kept on apixaban and likely will need to have this on discharge. Repeat laboratory studies have been ordered. 12/25/2020 65-year-old female who reports feeling better today. She does remain on oxygen at 3 L per nasal cannula however her oxygen saturations have been 92 to 95%. Patient remains on Lantus 35 units daily as well as NovoLog sliding scale insulin with 4 times daily Accu-Cheks. She is on day 5 of Rocephin and we will continue this. She has been up ambulating in her room independently doing well without any complaints however she states that today she ambulated in the hallway with physical therapy and oxygen levels dropped into the 70s and she complained of dizziness. Continues on Eliquis twice daily for PEs. And was to discharge the patient to home today with home health care PT and OT however the patient's daughter has reservations about this due to her oxygen demands and weakness. However, I suspect that the patient will likely be on oxygen for significant amount of time and is otherwise stable to be discharged home. cut off worker discussed that the patient will be discharged home tomorrow and family states that they will have one of the patient's children there to stay with her. Patient is agreeable to this plan. She will be discharged home on Eliquis and will need to follow-up with her primary care provider for medication management. <Brodie Boyd - Last Filed: 12/25/20 15:48> - Patient Data Vitals - Most Recent: Last Vital Signs Temp 35.9 C L 12/25/20 15:10 Pulse 71 12/25/20 15:10 Resp 24 H 12/25/20 15:10 BP 129/92 H 12/25/20 15:10 Pulse Ox 93 L 12/25/20 15:10 I&O - Last 24 Hours: Intake & Output 12/25/20 12/25/2012/25/21 06:59 14:59 22:59 Intake Total 450 120 300 Output Total 650 700 Balance -200 120 -400 Lab Results Last 24 Hours: Laboratory Results - last 24 hr 12/24/20 12/24/20 12/25/20 Range/Units 16:51 21:15 05:40 WBC 10.30 H (3.98-10.04) K/mm3 RBC 4.10 (3.98-5.22) M/mm3 Hgb 11.5 (11.2-15.7) gm/dl Hct 37.4 (34.1-44.9) % MCV 91.2 (79.4-94.8) fl MCH 28.0 (25.6-32.2) pg MCHC 30.7 L (32.2-35.5) g/dl RDW Std Deviation 47.0 H (36.4-46.3) fL Plt Count 202 (182-369) K/mm3 MPV 10.8 (9.4-12.3) fl Neut % (Auto) 74.7 H (34.0-71.1) % Lymph % (Auto) 10.0 L (19.3-51.7) % [place] % (Auto) 12.3 (4.7-12.5) % Eos % (Auto) 1.1 (0.7-5.8) Baso % (Auto) 0.2 (0.1-1.2) % Neut # (Auto) 7.70 H (1.56-6.13) K/mm3 Lymph # (Auto) 1.03 L (1.18-3.74) K/mm3 [place] # (Auto) 1.27 H (0.24-0.36) K/mm3 Eos # (Auto) 0.11 (0.04-0.36) K/mm3 Baso # (Auto) 0.02 (0.01-0.08) K/mm3 Sodium (136-145) mEq/L Potassium (3.5-5.1) mEq/L Chloride (98-107) mEq/L Carbon Dioxide (21-32) mEq/L Anion Gap (5-15) BUN (7-18) mg/dL Creatinine (0.55-1.02) mg/dL Est Cr Clr Drug Dosing mL/min Estimated GFR (MDRD) (>60) mL/min BUN/Creatinine Ratio (14-18) Glucose (70-99) mg/dL POC Glucose 368 H 329 H (70-99) mg/dL Calcium (8.5-10.1) mg/dL Magnesium (1.8-2.4) mg/dL Total Bilirubin (0.2-1.0) mg/dL AST (15-37) U/L ALT (14-59) U/L Alkaline Phosphatase (46-116) U/L Total Protein (6.4-8.2) g/dl Albumin (3.4-5.0) g/dl Globulin gm/dL Albumin/Globulin Ratio (1-2) 12/25/20 12/25/20 12/25/20 Range/Units 05:40 06:48 11:14 WBC (3.98-10.04) K/mm3 RBC (3.98-5.22) M/mm3 Hgb (11.2-15.7) gm/dl Hct (34.1-44.9) % MCV (79.4-94.8) fl MCH (25.6-32.2) pg MCHC (32.2-35.5) g/dl RDW Std Deviation (36.4-46.3) fL Plt Count (182-369) K/mm3 MPV (9.4-12.3) fl Neut % (Auto) (34.0-71.1) % Lymph % (Auto) (19.3-51.7) % [place] % (Auto) (4.7-12.5) % Eos % (Auto) (0.7-5.8) Baso % (Auto) (0.1-1.2) % Neut # (Auto) (1.56-6.13) K/mm3 Lymph # (Auto) (1.18-3.74) K/mm3 [place] # (Auto) (0.24-0.36) K/mm3 Eos # (Auto) (0.04-0.36) K/mm3 Baso # (Auto) (0.01-0.08) K/mm3 Sodium 139 (136-145) mEq/L Potassium 3.9 (3.5-5.1) mEq/L Chloride 109 H (98-107) mEq/L Carbon Dioxide 21 (21-32) mEq/L Anion Gap 12.9 (5-15) BUN 35 H (7-18) mg/dL Creatinine 1.9 H (0.55-1.02) mg/dL Est Cr Clr Drug Dosing 21.68 mL/min Estimated GFR (MDRD) 26 (>60) mL/min BUN/Creatinine Ratio 18.4 H (14-18) Glucose 291 H (70-99) mg/dL POC Glucose 236 H 277 H (70-99) mg/dL Calcium 7.9 L (8.5-10.1) mg/dL Magnesium 2.2 (1.8-2.4) mg/dL Total Bilirubin 0.3 (0.2-1.0) mg/dL AST 32 (15-37) U/L ALT 33 (14-59) U/L Alkaline Phosphatase 59 (46-116) U/L Total Protein 5.8 L (6.4-8.2) g/dl Albumin 2.1 L (3.4-5.0) g/dl Globulin 3.7 gm/dL Albumin/Globulin Ratio 0.6 L (1-2) Med Orders - Current: Current Medications Acetaminophen (Acetaminophen 325 Mg Tab) 650 mg PO Q4H PRN PRN Reason: Pain (Mild 1-3)/fever Last Admin: 12/23/20 16:21 Dose: 650 mg Documented by: Albuterol (Albuterol 0.083% 2.5 Mg/3 Ml Neb Soln) 2.5 mg NEB Q2H PRN PRN Reason: Shortness Of Breath/wheezing Albuterol/Ipratropium (Albuterol/Ipratropium 3.0-0.5 Mg/3 Ml Neb Soln) 3 ml NEB Q4H PRN PRN Reason: Shortness Of Breath/wheezing Apixaban (Apixaban 5 Mg Tab) 10 mg PO BID [facility] Stop: 12/29/20 09:01 Last Admin: 12/25/20 09:47 Dose: 10 mg Documented by: Atorvastatin Calcium (Atorvastatin 40 Mg Tab) 80 mg PO BEDTIME [facility] Last Admin: 12/24/20 21:48 Dose: 80 mg Documented by: Ceftriaxone Sodium 2 gm/ (Sodium Chloride) 100 mls @ 200 mls/hr IV Q24H [facility] Last Admin: 12/24/20 21:54 Dose: 200 mls/hr Documented by: Insulin Glargine (Insulin Glargine,Hum.Rec.Anlog 100 Unit/Ml 3 Ml Pen) 35 unit SUBCUT DAILY [facility] Last Admin: 12/25/20 09:46 Dose: 35 units Documented by: Insulin Human Lispro (Insulin Lispro 100 Unit/Ml 3 Ml Kwikpen) 0 unit SUBCUT QIDACANDBED [facility]; Protocol Last Admin: 12/25/20 13:07 Dose: 6 unit Documented by: Levothyroxine Sodium (Levothyroxine 112 Mcg Tab) 112 mcg PO ACBREAKFAST [facility] Last Admin: 12/25/20 06:50 Dose: 112 mcg Documented by: Ondansetron HCl (Ondansetron 4 Mg/2 Ml Sdv) 4 mg IV Q6H PRN PRN Reason: Nausea/Vomiting Pantoprazole Sodium (Pantoprazole 40 Mg Tab.Cr) 40 mg PO DAILY [facility] Last Admin: 12/25/20 09:47 Dose: 40 mg Documented by: Discontinued Medications Dexamethasone (Dexamethasone 4 Mg Tab) 6 mg PO ONETIME STA Stop: 12/22/20 00:34 Last Admin: 12/22/20 00:58 Dose: 6 mg Documented by: Dexamethasone (Dexamethasone 4 Mg Tab) 6 mg PO DAILY TEJAS Stop: 12/30/20 09:01 Last Admin: 12/22/20 09:28 Dose: Not Given Documented by: Dexamethasone (Dexamethasone 4 Mg Tab) 6 mg PO BEDTIME TEJAS Stop: 12/30/20 21:01 Last Admin: 12/23/20 21:33 Dose: 6 mg Documented by: Enoxaparin Sodium (Enoxaparin 100 Mg/1 Ml Syringe) 95 mg SUBCUT ONETIME STA Stop: 12/22/20 00:33 Last Admin: 12/22/20 00:58 Dose: 95 mg Documented by: Enoxaparin Sodium (Enoxaparin 100 Mg/1 Ml Syringe) 90 mg SUBCUT Q24H [facility] Sodium Chloride (Normal Saline) 1,000 mls @ 150 mls/hr IV ASDIRECTED [facility] Last Admin: 12/22/20 06:05 Dose: 150 mls/hr Documented by: Ceftriaxone Sodium 2 gm/ (Sodium Chloride) 100 mls @ 200 mls/hr IV ONETIME STA Stop: 12/21/20 23:53 Last Admin: 12/21/20 23:56 Dose: 200 mls/hr Documented by: Insulin Glargine (Insulin Glargine,Hum.Rec.Anlog 100 Unit/Ml 3 Ml Pen) 16 unit SUBCUT DAILY [facility] Last Admin: 12/23/20 09:11 Dose: 16 unit Documented by: Insulin Glargine (Insulin Glargine,Hum.Rec.Anlog 100 Unit/Ml 3 Ml Pen) 25 unit SUBCUT DAILY [facility] Last Admin: 12/24/20 09:39 Dose: 25 units Documented by: - Patient Data Lab Results Last 24 hrs: Laboratory Results - last 24 hr 12/24/20 12/24/20 12/25/20 Range/Units 16:51 21:15 05:40 WBC 10.30 H (3.98-10.04) K/mm3 RBC 4.10 (3.98-5.22) M/mm3 Hgb 11.5 (11.2-15.7) gm/dl Hct 37.4 (34.1-44.9) % MCV 91.2 (79.4-94.8) fl MCH 28.0 (25.6-32.2) pg MCHC 30.7 L (32.2-35.5) g/dl RDW Std Deviation 47.0 H (36.4-46.3) fL Plt Count 202 (182-369) K/mm3 MPV 10.8 (9.4-12.3) fl Neut % (Auto) 74.7 H (34.0-71.1) % Lymph % (Auto) 10.0 L (19.3-51.7) % [place] % (Auto) 12.3 (4.7-12.5) % Eos % (Auto) 1.1 (0.7-5.8) Baso % (Auto) 0.2 (0.1-1.2) % Neut # (Auto) 7.70 H (1.56-6.13) K/mm3 Lymph # (Auto) 1.03 L (1.18-3.74) K/mm3 [place] # (Auto) 1.27 H (0.24-0.36) K/mm3 Eos # (Auto) 0.11 (0.04-0.36) K/mm3 Baso # (Auto) 0.02 (0.01-0.08) K/mm3 Sodium (136-145) mEq/L Potassium (3.5-5.1) mEq/L Chloride (98-107) mEq/L Carbon Dioxide (21-32) mEq/L Anion Gap (5-15) BUN (7-18) mg/dL Creatinine (0.55-1.02) mg/dL Est Cr Clr Drug Dosing mL/min Estimated GFR (MDRD) (>60) mL/min BUN/Creatinine Ratio (14-18) Glucose (70-99) mg/dL POC Glucose 368 H 329 H (70-99) mg/dL Calcium (8.5-10.1) mg/dL Magnesium (1.8-2.4) mg/dL Total Bilirubin (0.2-1.0) mg/dL AST (15-37) U/L ALT (14-59) U/L Alkaline Phosphatase (46-116) U/L Total Protein (6.4-8.2) g/dl Albumin (3.4-5.0) g/dl Globulin gm/dL Albumin/Globulin Ratio (1-2) 12/25/20 12/25/20 12/25/20 Range/Units 05:40 06:48 11:14 WBC (3.98-10.04) K/mm3 RBC (3.98-5.22) M/mm3 Hgb (11.2-15.7) gm/dl Hct (34.1-44.9) % MCV (79.4-94.8) fl MCH (25.6-32.2) pg MCHC (32.2-35.5) g/dl RDW Std Deviation (36.4-46.3) fL Plt Count (182-369) K/mm3 MPV (9.4-12.3) fl Neut % (Auto) (34.0-71.1) % Lymph % (Auto) (19.3-51.7) % Brewster % (Auto) (4.7-12.5) % Eos % (Auto) (0.7-5.8) Baso % (Auto) (0.1-1.2) % Neut # (Auto) (1.56-6.13) K/mm3 Lymph # (Auto) (1.18-3.74) K/mm3 Brewster # (Auto) (0.24-0.36) K/mm3 Eos # (Auto) (0.04-0.36) K/mm3 Baso # (Auto) (0.01-0.08) K/mm3 Sodium 139 (136-145) mEq/L Potassium 3.9 (3.5-5.1) mEq/L Chloride 109 H (98-107) mEq/L Carbon Dioxide 21 (21-32) mEq/L Anion Gap 12.9 (5-15) BUN 35 H (7-18) mg/dL Creatinine 1.9 H (0.55-1.02) mg/dL Est Cr Clr Drug Dosing 21.68 mL/min Estimated GFR (MDRD) 26 (>60) mL/min BUN/Creatinine Ratio 18.4 H (14-18) Glucose 291 H (70-99) mg/dL POC Glucose 236 H 277 H (70-99) mg/dL Calcium 7.9 L (8.5-10.1) mg/dL Magnesium 2.2 (1.8-2.4) mg/dL Total Bilirubin 0.3 (0.2-1.0) mg/dL AST 32 (15-37) U/L ALT 33 (14-59) U/L Alkaline Phosphatase 59 (46-116) U/L Total Protein 5.8 L (6.4-8.2) g/dl Albumin 2.1 L (3.4-5.0) g/dl Globulin 3.7 gm/dL Albumin/Globulin Ratio 0.6 L (1-2) Result Diagrams: 12/25/20 05:40 12/25/20 05:40 Sepsis Event Note - Focused Exam Vital Signs: Vital Signs Temp Temp Pulse Pulse Resp BP BP 12/25/20 15:10 35.9 C L 71 24 H 129/92 H 12/25/20 13:51 12/25/20 13:36 12/25/20 13:33 12/25/20 08:00 36.7 C 80 19 113/61 12/25/20 07:51 12/25/20 06:03 12/25/20 04:39 36.8 C 68 13 114/88 Pulse Ox Pulse Ox 12/25/20 15:10 93 L 12/25/20 13:51 91 L 12/25/20 13:36 96 12/25/20 13:33 96 12/25/20 08:00 90 L 12/25/20 07:51 92 L 12/25/20 06:03 95 12/25/20 04:39 88 L - Problem List & Annotations (1) Acute respiratory failure due to COVID-19 SNOMED Code(s): 910727190 Code(s): U07.1 - COVID-19; J96.00 - ACUTE RESPIRATORY FAILURE, UNSP W HYPOXIA OR HYPERCAPNIA Status: Acute Priority: High Current Visit: Yes (2) Diabetes SNOMED Code(s): 16676634 Code(s): E11.9 - TYPE 2 DIABETES MELLITUS WITHOUT COMPLICATIONS Status: Acute Priority: High Current Visit: Yes Qualifiers: Diabetes mellitus type: other specified (including KATHE) Diabetes mellitus longterm insulin use: with longterm use Diabetes mellitus complication status: with kidney complications Diabetes mellitus complication detail: with chronic kidney disease Chronic kidney disease stage: stage 4 (severe) Qualified Code(s): 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; N18.4 - Chronic kidney disease, stage 4 (severe); Z79.4 - shelter (current) use of insulin (3) Pneumonia due to 2019 novel coronavirus SNOMED Code(s): 482759261885252144 Code(s): U07.1 - COVID-19; J12.82 - PNEUMONIA DUE TO CORONAVIRUS DISEASE 2019 Status: Acute Current Visit: No (4) Chronic renal insufficiency SNOMED Code(s): 445540227 Code(s): N18.9 - CHRONIC KIDNEY DISEASE, UNSPECIFIED Status: Acute Priority: High Current Visit: Yes Qualifiers: Chronic kidney disease stage: stage 4 (severe) Qualified Code(s): N18.4 - Chronic kidney disease, stage 4 (severe) - My Orders Last 24 Hours: My Active Orders 12/25/20 09:00 Insulin Glargine,Hum.Rec.Anlog [Semglee Pen] 35 unit SUBCUT DAILY - Free Text/Narrative Note: I have seen and examined the patient independently of LUCRECIA Lara, and I have discussed the case with her. I have reviewed and agree with the plan of care as outlined by her. Please see orders.
[2020-12-25] MEDS: atorvaSTATin 40 MG Tab PO SCH (22:03)
[2020-12-25] MEDS: cefTRIAXone 2 GM in Sodium Chloride 0.9% 100 ML IV SCH (22:15)
[2020-12-26] MEDS: Levothyroxine 112 MCG Tab PO SCH (05:57)
[2020-12-26] MEDS: Pantoprazole 40 MG Tab.CR PO SCH (08:20)
[2020-12-26] MEDS: Apixaban 5 MG Tab PO SCH (08:20)
[2020-12-26] MEDS: Insulin Lispro 100 Unit/ML 3 ML KwikPen SUBCUT SCH ×2 (08:22→13:19)
[2020-12-26] MEDS: Insulin Glargine,Hum.Rec.Anlog 100 UNIT/ML 3 ML Pen SUBCUT SCH (08:23)
--- NOTE | 2020-12-26 09:58 | CR ---
Chest: Portable view of the chest was obtained. Comparison: Prior chest x-ray of 12/21/20. Patchy areas of increased density are seen on both sides of the chest. Minimal improvement is noted within the right base from prior exam. Changes are otherwise stable. Heart size and mediastinum are within normal limits. Bony structures are grossly intact. Impression: 1. Minimal improvement within the right lung base. 2. Chest x-ray is otherwise stable. Diagnostic code #3
--- NOTE | 2020-12-26 14:06 | PCM.DCSUM1 ---
<Fuller,Roxana M - Last Filed: 12/26/20 14:23> Discharge Summary - Hospital Course HPI Initial Comments: 65-year-old female who presented to the emergency department on 12/11/2020 with complaints of decreased appetite and oxygen saturations at 87% on room air. She was diagnosed with COVID-19 on 12/01/2020. She was started on oxygen at 2 L per nasal cannula and saturations increased to 97%. At that time she was discharged home on supplemental oxygen. However that she then returned to the emergency department with complaints of worsening shortness of breath and oxygen saturations were found to be 77% on 3 L per nasal cannula. She was placed on a nonrebreather mask in the emergency department and oxygen saturations increased to 92%. Patient was subsequently admitted to the medical floor for further treatment. CTA was completed due to an elevated D-dimer greater than 35, CTA demonstrated mild pulmonary emboli with diffuse increased density throughout both sides of the chest compatible with diffuse Covid pneumonia. Patient was started on Eliquis 10 mg twice daily upon admit to treat PEs. Patient was also given dexamethasone 6 mg daily for the treatment of Covid. Patient does have a history of insulin-dependent diabetes and was initially started on Lantus 25 units daily however due to the steroid effect patient's blood sugars were elevated and Lantus was increased to 35 units daily as well as sliding scale insulin. Patient was eventually titrated down to 1 L per nasal cannula. She was treated with PT and OT. Upon discharge, patient was set up with home health care with PT and OT as well as home O2. Diagnosis: Stroke: No - Discharge Data Discharge Date: 12/26/20 Discharge Disposition: Home, W Home Health Agency 06 Condition: Good - Referral to Home Health Date of Face to Face Encounter: 12/26/20 Reason for Homebound Status: Face to Face meeting with pt and or family. Pt has the following diagnosis; Weakness, COVID-19, Chronic renal sufficiency, Pulmonary embolism, also see discharge summary for additional diagnosis. Pt needs Home Health Care nursing services for; skilled assessment, vital signs, disease education/management, and medication education. Physical therapy for gait training, transfer training, safety education, Neuro-muscular reeducation, Therapeutic exercise, balance training. Occupational therapy for; Activities of daily living, balance training, functional mobility training, safety education, therapeutic activities, therapeutic exercises. Pt is currently homebound related decreased activity tolerance, decreased level of endurance, and need for FWW use. Pt will be followed by his primary provider Jasmine Purdy. Primary Care Physician: Jasmine Purdy NP Skilled Need: Face to Face meeting with pt and or family. Pt has the following diagnosis; Weakness, COVID-19, Chronic renal sufficiency, Pulmonary embolism, also see discharge summary for additional diagnosis. Pt needs Home Health Care nursing services for; skilled assessment, vital signs, disease education/management, and medication education. Physical therapy for gait training, transfer training, safety education, Neuro-muscular reeducation, Therapeutic exercise, balance training. Occupational therapy for; Activities of daily living, balance training, functional mobility training, safety education, therapeutic activities, therapeutic exercises. Pt is currently homebound related decreased activity tolerance, decreased level of endurance, and need for FWW use. Pt will be followed by his primary provider Jasmine Purdy. - Discharge Diagnosis/Problem(s) (1) Acute respiratory failure due to COVID-19 SNOMED Code(s): 453963029 ICD Code: U07.1 - COVID-19; J96.00 - ACUTE RESPIRATORY FAILURE, UNSP W HYPOXIA OR HYPERCAPNIA Status: Acute Priority: High Current Visit: Yes (2) Chronic renal insufficiency SNOMED Code(s): 033636215 ICD Code: N18.9 - CHRONIC KIDNEY DISEASE, UNSPECIFIED Status: Acute Priority: High Current Visit: Yes Qualifiers: Chronic kidney disease stage: stage 4 (severe) Qualified Code(s): N18.4 - Chronic kidney disease, stage 4 (severe) (3) Diabetes SNOMED Code(s): 03638227 ICD Code: E11.9 - TYPE 2 DIABETES MELLITUS WITHOUT COMPLICATIONS Status: Acute Priority: High Current Visit: Yes Qualifiers: Diabetes mellitus type: other specified (including KATHE) Diabetes mellitus intermediate insulin use: with intermediate use Diabetes mellitus complication status: with kidney complications Diabetes mellitus complication detail: with chronic kidney disease Chronic kidney disease stage: stage 4 (severe) Qualified Code(s): 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; N18.4 - Chronic kidney disease, stage 4 (severe); Z79.4 - FPC (current) use of insulin (4) Pulmonary embolism associated with COVID-19 SNOMED Code(s): 032574655 ICD Code: U07.1 - COVID-19; I26.99 - OTHER PULMONARY EMBOLISM WITHOUT ACUTE COR PULMONALE Status: Acute Priority: High Current Visit: Yes (5) Pneumonia due to 2019 novel coronavirus SNOMED Code(s): 282163006738659594 ICD Code: U07.1 - COVID-19; J12.82 - PNEUMONIA DUE TO CORONAVIRUS DISEASE 2019 Status: Acute Priority: High Current Visit: No - Patient Summary/Data Consults: Consultations 12/22/20 08:40 PT Evaluation and Treatment [CONS] Routine Respiratory Care Assess and Treatment [CONS] Routine Hospital Course: 65-year-old female with Covid pneumonia presents to emergency department with w orsening shortness of breath and oxygenation secondary to new onset pulmonary embolism. COVID-19 pneumonia Segmental and subsegmental bilateral pulmonary emboli * CTA confirmed COVID-19 pneumonia and pulmonary emboli * Severe hypoxemia in emergency department with SPO2 of 77% on 3 L * Requiring 15 L nonrebreather to keep oxygen saturations in the low 90s * Started on therapeutic dose Lovenox in the emergency department Poorly controlled insulin-dependent diabetes mellitus. Obesity * Hemoglobin A1c 8.5 * Home dose of insulin: Patient relayed to me that she was on 20 units of a once a day on acting insulin and a sliding scale fast acting insulin. Her medication list on reconciliation had only Trulicity and NovoLog. * Increases likelihood of bad outcome with COVID-19 pneumonia Acute on chronic renal insufficiency. * Review of available creatinine levels shows a creatinine of 2.5 on 12/11/2020 and 1.8 on 09/11/2020 * On lisinopril at home Other medical problems include hyperlipidemia, hypertension, hypothyroidism, and GERD Plan * Admit to medical floor, patient is in ICU for overflow * Continue full dose Lovenox 1 mg/kg every 12 hours renally adjusted. * Dexamethasone 6 mg p.o. daily * Patient is out of the window for benefit from remdesivir. * FiO2 to keep SPO2 greater than 87 % * Sliding scale insulin * Lantus 16 units daily. * Bedside blood sugar check 4 times daily * Get procalcitonin * CBC, CMP, mag, CRP daily * Patient will need a switch from Lovenox to oral medication. We will start her on Eliquis in the morning. Eliquis 10 mg twice daily for 7 days then 5 mg twice daily after that. * Reconcile home meds * Renally adjust medications * CODE STATUS: Full code 12/23/2020 The patient is a 65-year-old lady who is doing somewhat better today. Her oxygen will continue to keep her saturations around 90 to 92%. The patient also has a history of chronic kidney disease likely related to her diabetes and her medications will be renally dosed. The patient be kept on a diabetic diet as tolerated. I have also increased the patient's Lantus due to her hypoglycemic episodes. The patient is currently anticoagulated on Eliquis secondary to her pulmonary emboli from COVID-19. She is on ceftriaxone 2 g daily and this will continue. Repeat laboratory studies have been ordered for the morning. The patient has been encouraged to ambulate. She should be appropriate for discharge once her oxygen demands have improved and she is back at her baseline. Physical therapy is also been ordered for the patient. 12/24/2020 The patient is a 65-year-old lady who says that she is feeling better today. The patient's oxygen saturations will be continue to monitor and kept around 90 to 92%. Also she has had severe hyperglycemic excursions and as a result of this I have increased the patient's Lantus from 25 units to 35 units and I have discontinued the steroid use for now. The patient is to continue with her carb constant diet. We will also continue the patient's sliding scale insulin and blood glucose checks. The patient is on ceftriaxone 2 g daily and this will continue for the next few days. Patient has been encouraged to ambulate. Also because of the pulmonary emboli she is kept on apixaban and likely will need to have this on discharge. Repeat laboratory studies have been ordered. 12/25/2020 65-year-old female who reports feeling better today. She does remain on oxygen at 3 L per nasal cannula however her oxygen saturations have been 92 to 95%. Patient remains on Lantus 35 units daily as well as NovoLog sliding scale insulin with 4 times daily Accu-Cheks. She is on day 5 of Rocephin and we will continue this. She has been up ambulating in her room independently doing well without any complaints however she states that today [facility] with physical therapy and oxygen levels dropped into the 70s and she complained of dizziness. Continues on Eliquis twice daily for PEs. And was to discharge the patient to home today with home health care PT and OT however the patient's daughter has reservations about this due to her oxygen demands and weakness. However, I suspect that the patient will likely be on oxygen for significant amount of time and is otherwise stable to be discharged home. utility service worker discussed that the patient will be discharged home tomorrow and family states that they will have one of the patient's children there to stay with her. Patient is agreeable to this plan. She will be discharged home on Eliquis and will need to follow-up with her primary care provider for medication management. 12/26/2020 65-year-old female who voices no complaints today. Oxygen is down to 1 L per nasal cannula with saturations at 98%. Plan was to discharge patient home today, however, patient's family is concerned that she is not yet ready to go home so we did have a meeting with the patient and her family members regarding discharge. All questions were answered at that time and after the meeting they were agreeable to take her home. She has been set up with home health care, PT/OT and given information regarding home and community-based services as well as Meals on Wheels. Family did seem more at ease once this was all discussed. While in the hospital, the patient was on Lantus 35 units daily as well as sliding scale NovoLog insulin. I did discharge her to home on her home insulin medications as she does have a follow-up appointment scheduled with her primary care provider for tomorrow already. While in the hospital, the patient received Rocephin IV for the treatment of Covid pneumonia. I do not feel she needs any further antibiotic treatment as her white count has resolved and she has been afebrile. She has been given prescriptions for Eliquis 10 mg daily x6 more doses. Her primary care provider will need to follow her for further treatment and dosing of her Eliquis for the treatment of of her PEs. - Patient Instructions Diet: Diabetic Diet Activity: As Tolerated - Discharge Plan *PRESCRIPTION DRUG MONITORING PROGRAM REVIEWED*: Not Applicable *COPY OF PRESCRIPTION DRUG MONITORING REPORT IN PATIENT JOSEPH: Not Applicable Prescriptions/Med Rec: Apixaban [Eliquis] 10 mg PO BID #12 tablet Home Medications: Home Meds Dulaglutide [Trulicity] 1 dose SUBCUT ASDIRECTED 12/22/20 [History] Insulin Aspart [Novolog Flexpen] 1 dose SUBCUT ASDIRECTED 12/22/20 [History] Levothyroxine 112 mcg PO ACBREAKFAST 12/22/20 [History] atorvaSTATin [Lipitor] 80 mg PO BEDTIME 12/22/20 [History] lisinopriL [Lisinopril] 1 tab PO DAILY 12/22/20 [History] Apixaban [Eliquis] 10 mg PO BID #12 tablet 12/26/20 [Rx] Oxygen Therapy Mode: Nasal Cannula Oxygen Flow Rate (L/min): 1 Maintain SpO2% greater than: 92 Patient Handouts: COVID-19, Pulmonary Embolism, COVID-19: How to Protect Yourself and Others - [facility] Forms: ED Department Discharge Referrals: Jasmine Purdy [employer] CE[employer] CHANGER [Primary Care Provider] - 01/02/21 10:40 am (This is your check in time for an 11:00 appointment) - Discharge Summary/Plan Comment DC Time >30 min.: Yes Total # of Minutes for Discharge Time: 60 - General Info Date of Service: 12/26/20 Admission Dx/Problem (Free Text: Admission Diagnosis/Problem Admission Diagnosis/Problem Hypoxia Functional Status: Reports: Pain Controlled, Tolerating Diet, Ambulating, Urinating, Incentive Spirometry - Review of Systems General: Reports: No Symptoms HEENT: Reports: No Symptoms Pulmonary: Reports: Shortness of Breath (With ambulation), Cough (Occasional nonproductive) Cardiovascular: Reports: No Symptoms Gastrointestinal: Reports: No Symptoms Genitourinary: Reports: No Symptoms Musculoskeletal: Reports: No Symptoms Skin: Reports: No Symptoms Neurological: Reports: No Symptoms Psychiatric: Reports: No Symptoms - Patient Data Vitals - Most Recent: Last Vital Signs Temp 97.0 F 12/26/20 13:25 Pulse 85 12/26/20 13:25 Resp 18 12/26/20 13:25 BP 114/69 12/26/20 13:25 Pulse Ox 93 L 12/26/20 13:26 Weight - Most Recent: 91.535 kg I&O - Last 24 hours: Intake & Output 12/25/20 12/26/20 12/26/20 22:59 06:59 14:59 Intake Total 620 600 Output Total 700 400 Balance -80 200 Lab Results - Last 24 hrs: Laboratory Results - last 24 hr 12/25/20 12/25/20 12/26/20 Range/Units 16:56 20:49 05:59 POC Glucose 261 H 379 H 207 H (70-99) mg/dL 12/26/20 Range/Units 13:06 POC Glucose 346 H (70-99) mg/dL Med Orders - Current: Current Medications Acetaminophen (Acetaminophen 325 Mg Tab) 650 mg PO Q4H PRN PRN Reason: Pain (Mild 1-3)/fever Last Admin: 12/23/20 16:21 Dose: 650 mg Documented by: Albuterol (Albuterol 0.083% 2.5 Mg/3 Ml Neb Soln) 2.5 mg NEB Q2H PRN PRN Reason: Shortness Of Breath/wheezing Albuterol/Ipratropium (Albuterol/Ipratropium 3.0-0.5 Mg/3 Ml Neb Soln) 3 ml NEB Q4H PRN PRN Reason: Shortness Of Breath/wheezing Apixaban (Apixaban 5 Mg Tab) 10 mg PO BID [facility] Stop: 12/29/20 09:01 Last Admin: 12/26/20 08:20 Dose: 10 mg Documented by: Atorvastatin Calcium (Atorvastatin 40 Mg Tab) 80 mg PO BEDTIME [facility] Last Admin: 12/25/20 22:03 Dose: 80 mg Documented by: Ceftriaxone Sodium 2 gm/ (Sodium Chloride) 100 mls @ 200 mls/hr IV Q24H [facility] Last Admin: 12/25/20 22:15 Dose: 200 mls/hr Documented by: Insulin Glargine (Insulin Glargine,Hum.Rec.Anlog 100 Unit/Ml 3 Ml Pen) 35 unit SUBCUT DAILY [facility] Last Admin: 12/26/20 08:23 Dose: 35 units Documented by: Insulin Human Lispro (Insulin Lispro 100 Unit/Ml 3 Ml Kwikpen) 0 unit SUBCUT QIDACANDBED [facility]; Protocol Last Admin: 12/26/20 13:19 Dose: 8 unit Documented by: Levothyroxine Sodium (Levothyroxine 112 Mcg Tab) 112 mcg PO ACBREAKFAST [facility] Last Admin: 12/26/20 05:57 Dose: 112 mcg Documented by: Ondansetron HCl (Ondansetron 4 Mg/2 Ml Sdv) 4 mg IV Q6H PRN PRN Reason: Nausea/Vomiting Pantoprazole Sodium (Pantoprazole 40 Mg Tab.Cr) 40 mg PO DAILY [facility] Last Admin: 12/26/20 08:20 Dose: 40 mg Documented by: Discontinued Medications Dexamethasone (Dexamethasone 4 Mg Tab) 6 mg PO ONETIME STA Stop: 12/22/20 00:34 Last Admin: 12/22/20 00:58 Dose: 6 mg Documented by: Dexamethasone (Dexamethasone 4 Mg Tab) 6 mg PO DAILY [facility] Stop: 12/30/20 09:01 Last Admin: 12/22/20 09:28 Dose: Not Given Documented by: Dexamethasone (Dexamethasone 4 Mg Tab) 6 mg PO BEDTIME [facility] Stop: 12/30/20 21:01 Last Admin: 12/23/20 21:33 Dose: 6 mg Documented by: Enoxaparin Sodium (Enoxaparin 100 Mg/1 Ml Syringe) 95 mg SUBCUT ONETIME STA Stop: 12/22/20 00:33 Last Admin: 12/22/20 00:58 Dose: 95 mg Documented by: Enoxaparin Sodium (Enoxaparin 100 Mg/1 Ml Syringe) 90 mg SUBCUT Q24H [facility] Sodium Chloride (Normal Saline) 1,000 mls @ 150 mls/hr IV ASDIRECTED [facility] Last Admin: 12/22/20 06:05 Dose: 150 mls/hr Documented by: Ceftriaxone Sodium 2 gm/ (Sodium Chloride) 100 mls @ 200 mls/hr IV ONETIME STA Stop: 12/21/20 23:53 Last Admin: 12/21/20 23:56 Dose: 200 mls/hr Documented by: Insulin Glargine (Insulin Glargine,Hum.Rec.Anlog 100 Unit/Ml 3 Ml Pen) 16 unit SUBCUT DAILY [facility] Last Admin: 12/23/20 09:11 Dose: 16 unit Documented by: Insulin Glargine (Insulin Glargine,Hum.Rec.Anlog 100 Unit/Ml 3 Ml Pen) 25 unit SUBCUT DAILY [facility] Last Admin: 12/24/20 09:39 Dose: 25 units Documented by: - Exam Quality Assessment: Reports: Supplemental Oxygen (1 L per nasal cannula), DVT Prophylaxis (Eliquis) General: Reports: Alert, Oriented, Cooperative, No Acute Distress HEENT: Reports: Pupils Equal, Mucous Membr. Moist/[place] Neck: Reports: Supple, Trachea Midline Lungs: Reports: Normal Respiratory Effort, Crackles (In all [place] posteriorly) Cardiovascular: Reports: Regular Rate, Regular Rhythm, No Murmurs GI/Abdominal Exam: Normal Bowel Sounds, Soft, Non-Tender, No Distention (Female) Exam: Deferred Rectal (Female) Exam: Deferred Back Exam: Reports: Normal Inspection Extremities: Normal Inspection, Normal Range of Motion, Non-Tender, No Pedal Edema, Normal Capillary Refill Skin: Reports: Warm, Dry, Intact Neurological: Reports: No New Focal Deficit Psy/Mental Status: Reports: Alert, Normal Affect, Normal Mood <Brodie Boyd - Last Filed: 12/26/20 14:33> Discharge Summary - Referral to Home Health Date of Face to Face Encounter: 12/26/20 Primary Care Physician: Jasmine Purdy NP - Discharge Diagnosis/Problem(s) (1) Acute respiratory failure due to COVID-19 SNOMED Code(s): 077612009 ICD Code: U07.1 - COVID-19; J96.00 - ACUTE RESPIRATORY FAILURE, UNSP W HYPOXIA OR HYPERCAPNIA Status: Acute Priority: High Current Visit: Yes (2) Diabetes SNOMED Code(s): 76680954 ICD Code: E11.9 - TYPE 2 DIABETES MELLITUS WITHOUT COMPLICATIONS Status: Acute Priority: High Current Visit: Yes Qualifiers: Diabetes mellitus type: other specified (including KATHE) Diabetes mellitus intermediate insulin use: with intermediate use Diabetes mellitus complication status: with kidney complications Diabetes mellitus complication detail: with chronic kidney disease Chronic kidney disease stage: stage 4 (severe) Qualified Code(s): 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; N18.4 - Chronic kidney disease, stage 4 (severe); 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 insulin (3) Pneumonia due to 2019 novel coronavirus SNOMED Code(s): 900965805221437034 ICD Code: U07.1 - COVID-19; J12.82 - PNEUMONIA DUE TO CORONAVIRUS DISEASE 2019 Status: Acute Priority: High Current Visit: No (4) Chronic renal insufficiency SNOMED Code(s): 797892770 ICD Code: N18.9 - CHRONIC KIDNEY DISEASE, UNSPECIFIED Status: Acute Priority: High Current Visit: Yes Qualifiers: Chronic kidney disease stage: stage 4 (severe) Qualified Code(s): N18.4 - Chronic kidney disease, stage 4 (severe) - Patient Summary/Data Consults: Consultations 12/22/20 08:40 PT Evaluation and Treatment [CONS] Routine Respiratory Care Assess and Treatment [CONS] Routine - Patient Data Vitals - Most Recent: Last Vital Signs Temp 36.1 C 12/26/20 13:25 Pulse 85 12/26/20 13:25 Resp 18 12/26/20 13:25 BP 114/69 12/26/20 13:25 Pulse Ox 93 L 12/26/20 13:26 I&O - Last 24 hours: Intake & Output 12/25/20 12/26/20 12/26/20 22:59 06:59 14:59 Intake Total 620 600 Output Total 700 400 Balance -80 200 Lab Results - Last 24 hrs: Laboratory Results - last 24 hr 12/25/20 12/25/20 12/26/20 Range/Units 16:56 20:49 05:59 POC Glucose 261 H 379 H 207 H (70-99) mg/dL 12/26/20 Range/Units 13:06 POC Glucose 346 H (70-99) mg/dL Med Orders - Current: Current Medications Acetaminophen (Acetaminophen 325 Mg Tab) 650 mg PO Q4H PRN PRN Reason: Pain (Mild 1-3)/fever Last Admin: 12/23/20 16:21 Dose: 650 mg Documented by: Albuterol (Albuterol 0.083% 2.5 Mg/3 Ml Neb Soln) 2.5 mg NEB Q2H PRN PRN Reason: Shortness Of Breath/wheezing Albuterol/Ipratropium (Albuterol/Ipratropium 3.0-0.5 Mg/3 Ml Neb Soln) 3 ml NEB Q4H PRN PRN Reason: Shortness Of Breath/wheezing Apixaban (Apixaban 5 Mg Tab) 10 mg PO BID [facility] Stop: 12/29/20 09:01 Last Admin: 12/26/20 08:20 Dose: 10 mg Documented by: Atorvastatin Calcium (Atorvastatin 40 Mg Tab) 80 mg PO BEDTIME [facility] Last Admin: 12/25/20 22:03 Dose: 80 mg Documented by: Ceftriaxone Sodium 2 gm/ (Sodium Chloride) 100 mls @ 200 mls/hr IV Q24H [facility] Last Admin: 12/25/20 22:15 Dose: 200 mls/hr Documented by: Insulin Glargine (Insulin Glargine,Hum.Rec.Anlog 100 Unit/Ml 3 Ml Pen) 35 unit SUBCUT DAILY [facility] Last Admin: 12/26/20 08:23 Dose: 35 units Documented by: Insulin Human Lispro (Insulin Lispro 100 Unit/Ml 3 Ml Kwikpen) 0 unit SUBCUT QIDACANDBED [facility]; Protocol Last Admin: 12/26/20 13:19 Dose: 8 unit Documented by: Levothyroxine Sodium (Levothyroxine 112 Mcg Tab) 112 mcg PO ACBREAKFAST [facility] Last Admin: 12/26/20 05:57 Dose: 112 mcg Documented by: Ondansetron HCl (Ondansetron 4 Mg/2 Ml Sdv) 4 mg IV Q6H PRN PRN Reason: Nausea/Vomiting Pantoprazole Sodium (Pantoprazole 40 Mg Tab.Cr) 40 mg PO DAILY [facility] Last Admin: 12/26/20 08:20 Dose: 40 mg Documented by: Discontinued Medications Dexamethasone (Dexamethasone 4 Mg Tab) 6 mg PO ONETIME STA Stop: 12/22/20 00:34 Last Admin: 12/22/20 00:58 Dose: 6 mg Documented by: Dexamethasone (Dexamethasone 4 Mg Tab) 6 mg PO DAILY [facility] Stop: 12/30/20 09:01 Last Admin: 12/22/20 09:28 Dose: Not Given Documented by: Dexamethasone (Dexamethasone 4 Mg Tab) 6 mg PO BEDTIME [facility] Stop: 12/30/20 21:01 Last Admin: 12/23/20 21:33 Dose: 6 mg Documented by: Enoxaparin Sodium (Enoxaparin 100 Mg/1 Ml Syringe) 95 mg SUBCUT ONETIME STA Stop: 12/22/20 00:33 Last Admin: 12/22/20 00:58 Dose: 95 mg Documented by: Enoxaparin Sodium (Enoxaparin 100 Mg/1 Ml Syringe) 90 mg SUBCUT Q24H [facility] Sodium Chloride (Normal Saline) 1,000 mls @ 150 mls/hr IV ASDIRECTED [facility] Last Admin: 12/22/20 06:05 Dose: 150 mls/hr Documented by: Ceftriaxone Sodium 2 gm/ (Sodium Chloride) 100 mls @ 200 mls/hr IV ONETIME STA Stop: 12/21/20 23:53 Last Admin: 12/21/20 23:56 Dose: 200 mls/hr Documented by: Insulin Glargine (Insulin Glargine,Hum.Rec.Anlog 100 Unit/Ml 3 Ml Pen) 16 unit SUBCUT DAILY [facility] Last Admin: 12/23/20 09:11 Dose: 16 unit Documented by: Insulin Glargine (Insulin Glargine,Hum.Rec.Anlog 100 Unit/Ml 3 Ml Pen) 25 unit SUBCUT DAILY [facility] Last Admin: 12/24/20 09:39 Dose: 25 units Documented by: - Free Text/Narrative Note: I have seen and examined the patient independently of ELIA Lara, and I have discussed the case with her. I have reviewed and agree with the plan of care as outlined by her. Please see orders.
== END 2020-12-26 14:30 | disposition home health service (06) | DRG 177 ==
LOC: JD.ED 21:20 → JD.ICU 12-22 01:17 → JD.MS 12-22 18:10
PROVIDERS: ADMIT Family Medicine; ATTEND Family Medicine
PROC: 8E0ZXY6 Isolation (ICD-10-PCS; principal; 2020-12-22)
PROC: 3E0DX3Z Introduction of Anti-inflammatory into Mouth and Pharynx, External Approach (ICD-10-PCS; 2020-12-22)
DX: U07.1 COVID-19 (principal); J96.01 Acute respiratory failure with hypoxia; J12.82 Pneumonia due to coronavirus disease 2019; I26.94 Multiple subsegmental thrombotic pulmonary emboli without acute cor pulmonale; N18.4 Chronic kidney disease, stage 4 (severe); E11.22 Type 2 diabetes mellitus with diabetic chronic kidney disease; N18.9 Chronic kidney disease, unspecified; E11.65 Type 2 diabetes mellitus with hyperglycemia; E66.9 Obesity, unspecified; E78.5 Hyperlipidemia, unspecified; I48.0 Paroxysmal atrial fibrillation; E03.9 Hypothyroidism, unspecified; K21.9 Gastro-esophageal reflux disease without esophagitis; H54.7 Unspecified visual loss; D63.1 Anemia in chronic kidney disease; I12.9 Hypertensive chronic kidney disease with stage 1 through stage 4 chronic kidney disease, or unspecified chronic kidney disease; Z79.4 Long term (current) use of insulin; Z99.81 Dependence on supplemental oxygen; Z79.890 Hormone replacement therapy; Z79.899 Other long term (current) drug therapy; Z98.49 Cataract extraction status, unspecified eye; Z68.38 Body mass index [BMI] 38.0-38.9, adult
CPT/HCPCS: 0240U; 36415; 71045; 71275; 80053; 82009; 82947; 83036; 83605; 83735; 83880; 84100; 84145; 84443; 84484; 85007; 85025; 85027; 85379; 86140; 87040; 93005; 94762; 96365; 96372; 97110; 97162; 99285; A9270-GY; J0696; J1650; J1815; J7030; J8540

== ENCOUNTER 2021-08-15 07:52 | Day surgery (SDC) | payer MEDICARE, MEDICAID ==
[~2021-08-15 07:52] MED LIST: Lactated Ringers 1,000 ML IV SCH; Lidocaine 1% PF 2 ML SDV ONE; Lidocaine 1%/Sod Bicarbonate in NS 8.4% 1 ML Syringe IDERM PRN; Propofol 200 MG/20 ML SDV ONE; Sodium Chloride 0.9% 10 ML Syringe FLUSH PRN; Sodium Chloride 0.9% 10 ML Syringe FLUSH SCH
[2021-08-15] MEDS ORDERED: Propofol 200 MG/20 ML SDV ONE ×2 (10:51→11:20)
[2021-08-15] MEDS ORDERED: Ondansetron 4 MG/2 ML SDV IVPUSH PRN (11:42)
[2021-08-15] MEDS ORDERED: HYDROmorphone 0.5 MG/0.5 ML Syringe IVPUSH PRN (11:42)
[2021-08-15] MEDS ORDERED: fentaNYL 100 MCG/2 ML SDV IVPUSH PRN (11:42)
== END 2021-08-15 12:34 | disposition home or self-care (01) ==
LOC: JD.SDS 07:52
PROVIDERS: ATTEND Surgery
DX: D12.0 Benign neoplasm of cecum (principal); D12.2 Benign neoplasm of ascending colon; D12.8 Benign neoplasm of rectum; D12.3 Benign neoplasm of transverse colon; D12.4 Benign neoplasm of descending colon; K57.30 Diverticulosis of large intestine without perforation or abscess without bleeding; K64.8 Other hemorrhoids; E78.5 Hyperlipidemia, unspecified; I10 Essential (primary) hypertension; G43.909 Migraine, unspecified, not intractable, without status migrainosus; E11.9 Type 2 diabetes mellitus without complications; I48.91 Unspecified atrial fibrillation; H54.7 Unspecified visual loss; E03.9 Hypothyroidism, unspecified; E66.9 Obesity, unspecified; Z68.30 Body mass index [BMI] 30.0-30.9, adult; K21.9 Gastro-esophageal reflux disease without esophagitis; F32.A Depression, unspecified; Z79.899 Other long term (current) drug therapy; Z79.4 Long term (current) use of insulin; Z79.890 Hormone replacement therapy; Z87.891 Personal history of nicotine dependence; Z79.82 Long term (current) use of aspirin
CPT/HCPCS: 45380; 45381; 45385; 82947; J2704; J7120; 00812

== ENCOUNTER 2022-04-10 06:46 | Day surgery (SDC) | payer MEDICARE, MEDICAID ==
[~2022-04-10 06:46] MED LIST changes: -Lidocaine 1% PF 2 ML SDV ONE; -Propofol 200 MG/20 ML SDV ONE
[2022-04-10] MEDS ORDERED: Lidocaine 1% 6 ML ONE (07:24)
[2022-04-10] MEDS ORDERED: Propofol 200 MG/20 ML SDV ONE ×3 (07:24→08:44)
== END 2022-04-10 09:45 | disposition home or self-care (01) ==
LOC: JD.SDS 06:46
PROVIDERS: ATTEND Surgery
DX: Z12.11 Encounter for screening for malignant neoplasm of colon (principal); D12.2 Benign neoplasm of ascending colon; D12.0 Benign neoplasm of cecum; K62.1 Rectal polyp; K57.30 Diverticulosis of large intestine without perforation or abscess without bleeding; K64.8 Other hemorrhoids; E11.9 Type 2 diabetes mellitus without complications; E07.9 Disorder of thyroid, unspecified; E78.00 Pure hypercholesterolemia, unspecified; I48.91 Unspecified atrial fibrillation; K21.9 Gastro-esophageal reflux disease without esophagitis; I12.9 Hypertensive chronic kidney disease with stage 1 through stage 4 chronic kidney disease, or unspecified chronic kidney disease; N18.9 Chronic kidney disease, unspecified; F32.A Depression, unspecified; E03.9 Hypothyroidism, unspecified; E66.9 Obesity, unspecified; D64.9 Anemia, unspecified; Z98.890 Other specified postprocedural states; Z79.899 Other long term (current) drug therapy; Z79.4 Long term (current) use of insulin; Z79.82 Long term (current) use of aspirin; Z91.018 Allergy to other foods; Z79.890 Hormone replacement therapy; Z86.010 Personal history of colon polyps; Z86.16 Personal history of COVID-19; Z68.41 Body mass index [BMI] 40.0-44.9, adult
CPT/HCPCS: 45380; 82947; J2704; J7120; J3490

== ENCOUNTER 2022-10-30 09:49 | Emergency (ER) | payer MEDICARE, MEDICAID ==
[2022-10-30] MEDS ORDERED: Sodium Chloride 0.9% 10 ML Syringe FLUSH PRN ×2 (10:16→13:22)
[2022-10-30] MEDS ORDERED: Aspirin 81 MG Tab.Chew PO ONE (10:16)
[2022-10-30] MEDS ORDERED: HYDROmorphone 0.5 MG/0.5 ML Syringe IVPUSH ONE (10:17)
[2022-10-30 10:53] LABS: BASOPHILS ABSOLUTE AUTO 0.1 K/mm3 (0.0-0.2); BASOPHILS PERCENT AUTO 0.6 % (0.0-1.0); EOSINOPHILS ABSOLUTE AUTO 0.1 K/mm3 (0.0-0.4); EOSINOPHILS PERCENT AUTO 1.1 % (0.0-6.0); HEMATOCRIT 42.9 % (37.0-47.0); IMMATURE GRAN ABSOLUTE AUTO 0.03 K/mm3 (0.00-0.05); IMMATURE GRAN PERCENT AUTO 0.3 % (0.0-0.4); LYMPHOCYTES PERCENT AUTO 20.4 % (24.0-44.0); MEAN CORPUSCULAR HGB CONC 32.6 g/dl (32.0-36.0); MEAN CORPUSCULAR VOLUME 91.9 fl (83.0-99.0); MEAN PLATELET VOLUME 10.2 fl (9.4-12.3); MONOCYTES ABSOLUTE AUTO 1.1 K/mm3 (0.0-0.8); MONOCYTES PERCENT AUTO 11.3 % (0.0-8.0); NEUTROPHILS ABSOLUTE AUTO 6.4 K/mm3 (1.8-7.7); NEUTROPHILS PERCENT AUTO 66.3 % (41.0-71.0); PLATELET COUNT,PLT 165 K/mm3 (150-400); RED BLOOD CELL COUNT 4.67 M/mm3 (4.10-5.30)
[2022-10-30 11:22] LABS: A/G RATIO 0.8 (1-2); ALBUMIN 3.2 g/dl (3.4-5.0); ANION GAP 14.9 (5-15); BILIRUBIN TOTAL 0.6 mg/dL (0.2-1.0); BUN/CREATININE RATIO 17.4 (14-18); CALCIUM 8.9 mg/dL (8.5-10.1); CREATININE 1.9 mg/dL (0.55-1.02); EST CRCL DRUG DOSING (CG) 20.07 mL/min; POTASSIUM,K 4.9 mEq/L (3.5-5.1); PROTEIN TOTAL,TP 7.1 g/dl (6.4-8.2)
[2022-10-30] MEDS ORDERED: Heparin Sodium 5,000 Units/ML Vial IVPUSH ONE (11:43)
[2022-10-30] MEDS ORDERED: Heparin Sodium/D5W 25,000 UNITS/500 ML BAG IV SCH (11:45)
[2022-10-30] MEDS ORDERED: Sodium Chloride 0.9% 500 ML IV ONE (12:25)
[2022-10-30] MEDS ORDERED: Metoprolol Tartrate 25 MG Tab PO ONE (12:33)
[2022-10-30] MEDS ORDERED: atorvaSTATin 40 MG Tab PO ONE (12:33)
[2022-10-30] MEDS ORDERED: Iopamidol 755 Mg/ML 100 ML Bottle IVPUSH ONE (13:22)
== END 2022-10-30 13:40 ==
LOC: JD.ED 09:49
DX: I21.4 Non-ST elevation (NSTEMI) myocardial infarction (principal); N28.9 Disorder of kidney and ureter, unspecified; I48.91 Unspecified atrial fibrillation; E78.00 Pure hypercholesterolemia, unspecified; I10 Essential (primary) hypertension; K21.9 Gastro-esophageal reflux disease without esophagitis; E11.9 Type 2 diabetes mellitus without complications; E66.9 Obesity, unspecified; Z86.73 Personal history of transient ischemic attack (TIA), and cerebral infarction without residual deficits; Z91.018 Allergy to other foods; Z79.82 Long term (current) use of aspirin; Z79.899 Other long term (current) drug therapy; Z86.16 Personal history of COVID-19; Z68.41 Body mass index [BMI] 40.0-44.9, adult
CPT/HCPCS: 36415; 71045; 71275; 80053; 84484; 85025; 85379; 93005; 96365; 96366; 96375; 99285; A9270; J1170; J1644; J3490; J7030; Q9967; 93010

== ENCOUNTER 2023-08-05 07:48 | Day surgery (SDC) | payer MEDICARE, MEDICAID ==
[~2023-08-05 07:48] MED LIST changes: -Lactated Ringers 1,000 ML IV SCH; -Lidocaine 1%/Sod Bicarbonate in NS 8.4% 1 ML Syringe IDERM PRN
[2023-08-05] MEDS ORDERED: Ondansetron 4 MG/2 ML SDV IVPUSH PRN (07:58)
[2023-08-05] MEDS ORDERED: HYDROmorphone 0.5 MG/0.5 ML Syringe IVPUSH PRN (07:58)
[2023-08-05] MEDS ORDERED: Naloxone 0.4 MG/ML SDV IVPUSH PRN (07:58)
[2023-08-05] MEDS ORDERED: fentaNYL 100 MCG/2 ML SDV IVPUSH PRN (07:58)
[2023-08-05] MEDS ORDERED: Lidocaine 1% 20 ML MDV ONE (08:09)
[2023-08-05] MEDS ORDERED: Midazolam 1 MG/ML 2 ML SDV ONE (08:39)
[2023-08-05] MEDS ORDERED: Ketamine 200 MG/20 ML MDV ONE (08:39)
[2023-08-05] MEDS ORDERED: fentaNYL 100 MCG/2 ML SDV ONE (08:39)
[2023-08-05] MEDS ORDERED: Propofol 200 MG/20 ML SDV ONE (08:39)
[2023-08-05] MEDS: Lactated Ringers 1,000 ML IV SCH (08:45)
== END 2023-08-05 12:20 | disposition home or self-care (01) ==
LOC: JD.SDS 07:48
PROVIDERS: ATTEND Obstetrics & Gynecology
DX: N84.0 Polyp of corpus uteri (principal); N85.00 Endometrial hyperplasia, unspecified; E11.65 Type 2 diabetes mellitus with hyperglycemia; E78.5 Hyperlipidemia, unspecified; I25.2 Old myocardial infarction; E07.9 Disorder of thyroid, unspecified; I48.91 Unspecified atrial fibrillation; J18.9 Pneumonia, unspecified organism; N18.9 Chronic kidney disease, unspecified; E66.9 Obesity, unspecified; I12.9 Hypertensive chronic kidney disease with stage 1 through stage 4 chronic kidney disease, or unspecified chronic kidney disease; D63.1 Anemia in chronic kidney disease; Z98.49 Cataract extraction status, unspecified eye; Z68.30 Body mass index [BMI] 30.0-30.9, adult; Z79.4 Long term (current) use of insulin; Z79.899 Other long term (current) drug therapy; Z79.02 Long term (current) use of antithrombotics/antiplatelets; Z79.82 Long term (current) use of aspirin; Z79.890 Hormone replacement therapy; Z91.018 Allergy to other foods; Z68.43 Body mass index [BMI] 50.0-59.9, adult
CPT/HCPCS: 58558; 82947; C1782; J2250; J2704; J3010; J7120; 00952; J3490

== ENCOUNTER 2024-10-31 13:56 | Emergency (ER) | payer MEDICARE, MEDICAID | END 2024-10-31 15:15 | disposition home or self-care (01) | LOC: JD.ED 13:56 | DX: R04.0 Epistaxis (principal); I48.91 Unspecified atrial fibrillation; E78.00 Pure hypercholesterolemia, unspecified; K21.9 Gastro-esophageal reflux disease without esophagitis; E03.9 Hypothyroidism, unspecified; I12.9 Hypertensive chronic kidney disease with stage 1 through stage 4 chronic kidney disease, or unspecified chronic kidney disease; N18.9 Chronic kidney disease, unspecified; E11.22 Type 2 diabetes mellitus with diabetic chronic kidney disease; Z91.018 Allergy to other foods; Z79.82 Long term (current) use of aspirin; Z79.899 Other long term (current) drug therapy; Z79.890 Hormone replacement therapy; Z86.73 Personal history of transient ischemic attack (TIA), and cerebral infarction without residual deficits | CPT/HCPCS: 99283; A9270 ==

== ENCOUNTER 2024-11-04 10:59 | Emergency (ER) | payer MEDICARE, MEDICAID ==
[2024-11-04] MEDS: Acetaminophen/HYDROcodone 325-5 MG Tab PO ONE (12:22)
[2024-11-04] MEDS: Ondansetron 4 MG Tab.DIS PO ONE (12:23)
== END 2024-11-04 12:34 | disposition home or self-care (01) ==
LOC: JD.ED 10:59
DX: R04.0 Epistaxis (principal); I12.9 Hypertensive chronic kidney disease with stage 1 through stage 4 chronic kidney disease, or unspecified chronic kidney disease; N18.9 Chronic kidney disease, unspecified; I48.91 Unspecified atrial fibrillation; E78.00 Pure hypercholesterolemia, unspecified; K21.9 Gastro-esophageal reflux disease without esophagitis; E03.9 Hypothyroidism, unspecified; E11.22 Type 2 diabetes mellitus with diabetic chronic kidney disease; Z91.018 Allergy to other foods; Z79.82 Long term (current) use of aspirin; Z79.890 Hormone replacement therapy; Z79.899 Other long term (current) drug therapy; Z79.02 Long term (current) use of antithrombotics/antiplatelets; Z86.73 Personal history of transient ischemic attack (TIA), and cerebral infarction without residual deficits; Z86.16 Personal history of COVID-19
CPT/HCPCS: 30901; 99283; A9270; 99284

== ENCOUNTER 2024-11-07 10:31 | Emergency (ER) | payer MEDICARE, MEDICAID | END 2024-11-07 12:48 | disposition home or self-care (01) | LOC: JD.ED 10:31 | DX: R04.0 Epistaxis (principal); I48.91 Unspecified atrial fibrillation; E78.00 Pure hypercholesterolemia, unspecified; K21.9 Gastro-esophageal reflux disease without esophagitis; I12.9 Hypertensive chronic kidney disease with stage 1 through stage 4 chronic kidney disease, or unspecified chronic kidney disease; N18.9 Chronic kidney disease, unspecified; E11.22 Type 2 diabetes mellitus with diabetic chronic kidney disease; E03.9 Hypothyroidism, unspecified; Z91.018 Allergy to other foods; Z79.82 Long term (current) use of aspirin; Z79.899 Other long term (current) drug therapy; Z79.890 Hormone replacement therapy; Z86.73 Personal history of transient ischemic attack (TIA), and cerebral infarction without residual deficits | CPT/HCPCS: 99282 ==